=== PATIENT | female | born 1970 | race Caucasian/White ===

== ENCOUNTER 2017-10-25 14:14 | Outpatient (CLI) | payer MEDICAID, SELFPAY | END 2017-10-25 14:15 | disposition home or self-care (01) | LOC: BICMAMMO 14:14 | PROVIDERS: ATTEND Internal Medicine | DX: R92.8 Other abnormal and inconclusive findings on diagnostic imaging of breast (principal) | CPT/HCPCS: 77066; G0279 ==

== ENCOUNTER 2019-09-11 14:35 | Inpatient (IN) | payer SELFPAY ==
[~2019-09-11 14:35] MED LIST: Iopamidol-370 76% 500 ML 1 ML ONE; Magnevist 469MG/ML 20 ML VIAL ONE
[2019-09-11 16:28] LABS: #Basophils 0.1 thou/uL (0.0-0.2); #Eosinphils 0.1 thou/uL (0.0-0.7); #Lymphocytes 2.8 thou/uL (1.20-3.40); #Monocytes 0.6 thou/uL (0.11-0.59); #Neutrophils 7.8 thou/uL (1.40-6.50); %Lymphocytes 24.3 % (21.0-51.0); %Monocytes 5.4 % (0.0-10.0); %Neutrophils 68.4 % (42.0-75.0); Hemoglobin 14.9 g/dL (12.0-16.0); Mean Corpuscular HGB CONC 34.7 g/dL (32.0-36.0); Mean Platelet Volume 8.8 fL (7.4-10.4); Platelet Count 199 thou/uL (130-400); RBC Distribution Width 12.9 % (11.5-14.5); Red Blood Cell (RBC) Count 4.15 mill/uL (4.20-5.40); White Blood Cell (WBC) Count 11.4 thou/uL (4.8-10.8)
--- NOTE | 2019-09-11 16:28 | CT ---
Exam: Head CT without contrast HISTORY: 3 weeks of right leg weakness and balance and frequent falls. Right arm difficulty. COMPARISON: none FINDINGS: Hemorrhage: No intraparenchymal hemorrhage or extra-axial hematoma. Brain parenchyma: Extensive vasogenic edema involving the left frontal, parietal and temporal lobes. There appears to be intra-axial mass measuring 1.4 x 1.4 cm. 1 cm of ufot-gz-eojfs subfalcine herniation.Right cerebrum is unremarkable. Ventricular system: There is mild prominence of bilateral temporal horns. Calvarium: Intact. Sinuses and mastoid air cells: Adequate aeration. IMPRESSION: 1. Extensive vasogenic edema in the left cerebrum. Intra-axial mass as described above. Associated le ft-to-right subfalcine herniation. 2. Further evaluation with pre and postcontrast brain MRI is recommended. 3. Results study discussed with Dr. Durand 09/11/2019 4:24 PM Code CR
[2019-09-11 16:51] LABS: Bilirubin Negative (Negative); Blood, Urine Negative (Negative); Clarity Clear (Clear); Glucose, Urine (Dipstick) Normal (Negative); Leukocyte Negative Leu/uL (Negative); Nitrite Negative (Negative); Protein, Urine (Dipstick) Negative (Neg-Trace); Urobilinogen Normal mg/dL (Less than 2)
[2019-09-11] MEDS ORDERED: Lorazepam 2 MG/ML VIAL SLOW IVP PRN (17:25)
[2019-09-11] MEDS ORDERED: Nicotine 21 MG PATCH TOP SCH (17:30)
[2019-09-11 17:42] LABS: Chloride 107 mmol/L (98-107); Potassium 3.8 mmol/L (3.5-5.1); Sodium 140 mmol/L (136-145)
[2019-09-11 17:43] LABS: Calcium 9.2 mg/dL (7.8-10.44)
[2019-09-11 17:44] LABS: Globulin 3.2 g/dL (2.4-3.5); Glucose 84 mg/dL (70-105); Protein, Total 7.2 g/dL (6.0-8.3)
[2019-09-11 17:45] LABS: Anion Gap 16 mmol/L (10-20); Carbon Dioxide 21 mmol/L (22-29)
[2019-09-11 17:46] LABS: Alkaline Phosphatase 88 U/L (40-110); Bilirubin, Total 0.3 mg/dL (0.2-1.2)
[2019-09-11 17:47] LABS: Calc. Creatinine Clearance 0 mL/min (70-130); Estimated GFR-MDRD Greater than 90
[2019-09-11 17:48] LABS: BUN (Urea Nitrogen) Less than 4 mg/dL (7.0-18.7); Phosphorus 3.3 mg/dL (2.3-4.7)
[2019-09-11 17:49] LABS: ALT (SGPT) 22 U/L (8-55); AST (SGOT) 31 U/L (5-34)
[2019-09-11 17:53] LABS: Pregnancy Test - Urine (BHCG) Negative (Negative); Pregu Control Background? CLEAR/WHITE (CLR/WHITE); Pregu Control Bar Appear? YES (CONTROL BAR); Specific Gravity 1.003 (1.002-1.036)
--- NOTE | 2019-09-11 17:59 | RAD ---
Chest one view HISTORY: Chest pain. COMPARISON: 03/23/2014. FINDINGS: Cardiac silhouette is magnified by projection. Pulmonary vasculature are unremarkable. Large soft tissue density mass projecting over the lateral lung base is at least 8.0 cm greatest obli que diameter. Some volume loss at the right lower lobe. No evidence of pneumothorax. IMPRESSION: Large right lower lobe mass. Likely neoplasm.
[2019-09-11] MEDS ORDERED: Dexamethasone 4 mg/ml Vial ONE (18:02)
[2019-09-11] MEDS: Dexamethasone 4 mg/ml Vial SLOW IVP SCH (18:05)
[2019-09-11] MEDS ORDERED: Senokot S 8.6-50 MG TAB PO PRN (20:59)
[2019-09-11] MEDS ORDERED: Ondansetron ODT 4 MG TAB PO PRN (20:59)
[2019-09-11] MEDS ORDERED: Ondansetron PF 4 MG/2 ML Vial IVP PRN (20:59)
[2019-09-11] MEDS ORDERED: Bisacodyl 10 MG SUPP PR PRN (20:59)
--- NOTE | 2019-09-11 21:05 | CT ---
CHEST CT WITH CONTRAST ABDOMEN CT WITH CONTRAST PELVIC CT WITH CONTRAST 09/11/19 HISTORY: New intra-axial mass in the left cerebrum, worrisome for metastases. Unknown primary. FINDINGS: CHEST CT: No mediastinal mass, lymphadenopathy or hematoma. Heart size is within normal limits. No significant pericardial fluid. The thoracic aorta and abdominal aorta have a normal caliber. No periaortic fat st randing. Questionable necrotic right axillary lymph node measuring 0.6 x 0.5 cm. Remainder of the right axilla and left axilla are unremarkable. Lower neck is unremarkable. Trachea and central bronchi are patent. No pleural effusion or pneumothorax. In the right lung, there is a large necrotic mass, located in the lower lobe. The mass abuts the tahira r fissure. Mass measures 5 cm craniocaudal x 5.4 cm mediolateral x 5.1 cm anterior posterior. No nale tional lung parenchymal mases or nodules. ABDOMEN CT: Unremarkable gallbladder. Patent portal vein. Multiple calcifications of the pancreas suggesting elvis te bouts of pancreatitis. There is diffuse cystic change and dilatation of the pancreatic duct, in ke eping with patient's suspected history of chronic pancreatitis. No active inflammatory change. The liver, spleen, pancreas have appropriate attenuation and enhancement. Symmetric enhancement of the adrenal glands. Symmetric enhancement of the kidneys. Bilaterally, no obstructive uropathy. No gastrohepatic, retrocrural or periportal lymphadenopathy. No mesenteric mass, lymphadenopathy, free air or free fluid. Gastric mucosal, duodenum and multiple normal caliber small bowel loops are identified. Ileocecal libra ction is unremarkable. Normal caliber appendix. There is contrast in a nondistended, nondilated colon . CT PELVIS: Unremarkable urinary bladder. No pelvic mass, lymphadenopathy free air or free fluid. Urinary bladder is unremarkable. No lytic or blastic lesions within the osseous structures. IMPRESSION: Necrotic mass in the right lower lobe, worrisome for malignancy until proven otherwise. POS: PPP
[2019-09-11] MEDS ORDERED: cloNIDine 0.1 MG TAB PO PRN (21:09)
--- NOTE | 2019-09-11 21:35 | HP ---
PRIMARY CARE PHYSICIAN: None. CHIEF COMPLAINT: Right-sided weakness of 2 months duration. HISTORY OF PRESENT ILLNESS: The patient is a 48-year-old female with chronic alcoholism and tobacco dependence, presented to the emergency room with above complaints. Over the last 2 months, the patient has gradual worsening right-sided weakness to the extent that she had difficulty ambulating. Over the last 2-3 weeks, her symptoms got worsen. She has difficulty balancing herself. She also had frequent falls. Recently, she started having lightheadedness along with generalized headache. She denies any blurring of vision, facial asymmetry, or seizures. She tried Excedrin Migraine and ibuprofen on an as-needed basis without much relief. Her symptoms got worse today for which she presented to the emergency room. In the emergency room, her workup was consistent with extensive vasogenic edema in the left cerebrum along with an intra-axial mass. PAST MEDICAL HISTORY: 1. Chronic alcoholism. 2. Tobacco dependence.. 3. Cannabis abuse. 4. History of alcoholic pancreatitis in the past. 5. Anxiety. PAST SURGICAL HISTORY: Reviewed with the patient and none. ALLERGIES: NO KNOWN DRUG ALLERGIES. CURRENT HOME MEDICATIONS: Reviewed with the patient and none. SOCIAL HISTORY: The patient smokes one pack a day. She drinks 12-pack beer almost on a daily basis. She used to drink vodka in the past. She abuses cannabis on a daily basis. FAMILY HISTORY: Positive for stroke. REVIEW OF SYSTEMS: All other review of systems were reviewed and were found negative. PHYSICAL EXAMINATION: VITAL SIGNS: Temperature 99.3, pulse rate of 104, blood pressure 131/77, respirations of 18, O2 saturation 99% on room air. GENERAL: A 48-year-old female, in no apparent distress. HEENT: Head, atraumatic and normocephalic. Sclerae anicteric. Moist mucous membranes. No oral lesion. Pupils were 3 mm. NECK: Supple. No JVD. No carotid bruit. LUNGS: Clear to auscultation bilaterally. No wheezing, rales, or rhonchi. HEART: S1 and S2 present. Regular rate and rhythm. No rubs or gallops. ABDOMEN: Soft, nontender. Bowel sounds present. EXTREMITIES: No edema or calf tenderness. PSYCHIATRY: Alert, awake, and oriented x3. Normal affect. NEUROLOGICAL: The patient has 4/5 power on the right upper and right lower extremity. Pqrrcz-nr-gqgb test was abnormal on the right. Sensation to touch was also diminished on the right. Reflexes were equivocal. SKIN: Warm and dry. LYMPH NODES: No palpable lymph nodes in the neck. PERIPHERAL VASCULAR: Radial pulses palpable bilaterally. MUSCULOSKELETAL: No joint swelling tenderness. LABORATORY FINDINGS: CBC showed WBC 11.4 with hemoglobin 14.9, hematocrit 43, platelet count of 199. Chemistry showed sodium 140, potassium 3.8, chloride 107, bicarb 21, BUN less than 4, creatinine 0.54. LFTs in normal range. Troponin was negative. CT scan of the brain by my review showed extensive vasogenic edema of the left cerebrum with intra-axial mass approximately 1.4 x 1.4 cm with 1 cm soyo-ij-emyht subfalcine herniation. CT of the chest, abdomen, and pelvis has been obtained, report is pending at this time. EKG by my review showed sinus rhythm with nonspecific ST-T wave changes in the anterolateral lead. IMPRESSION: 1. Right-sided weakness secondary to intracranial mass with vasogenic edema. 2. Chronic alcoholism. 3. Tobacco dependence. 4. Cannabis abuse. 5. Anxiety. PLAN: The patient will be monitored in the stroke unit. She has been started on dexamethasone per Neurosurgery recommendations. MRI of the brain will be obtained in the a.m. She also underwent CT chest, abdomen, and pelvis, report is pending at this time. We will put her on seizure precautions. We will start her on alcohol withdrawal protocol. Frequent neuro checks. Plan of care was discussed with the patient and the family at the bedside. They stated understanding. Job ID: [id number]
--- NOTE | 2019-09-12 00:19 | CON ---
DATE OF CONSULTATION: 09/11/2019 HISTORY OF PRESENT ILLNESS: The patient is a 48-year-old female with a past medical history of alcohol abuse, who presented to the emergency department for increased right-sided weakness, dysesthesia and difficulty ambulating, which has been progressive over the last month. The patient also reports an increase of headaches, which are new for her over the past month as well. She denies any prior similar symptoms. Denies any vision changes, difficulty speaking, but does admit to some trouble finding her words at times. She has no prior cancer history and she denies any family history of cancer. The patient is a smoker and smokes approximately one pack of cigarettes per day. She also smokes marijuana. She drinks approximately 12 beers per day. She denies any prior history of seizures. CT noncontrast of the head was notable for a new left-sided parietal brain mass with significant surrounding the frontotemporal and parietal edema. The patient has been treated with Decadron in the ER and I recommended that we continue this q.6h. Hospitalist was also notified and will admit for assistance with further oncologic workup. PAST MEDICAL HISTORY: Notable for pancreatitis, EtOH abuse. PAST SURGICAL HISTORY: Denies any prior surgical history. SOCIAL HISTORY: She drinks approximately 12 beers per day. She smokes one pack of cigarettes per day for greater than 20 years. She also smokes marijuana daily. REVIEW OF SYSTEMS: Per HPI. ALLERGIES: SHE HAS NO KNOWN DRUG ALLERGIES. PHYSICAL EXAMINATION: VITAL SIGNS: BP is 141/74, pulse is 92, respiratory rate is 20, temperature is 98.2. She is 97% on room air. CONSTITUTIONAL: The patient is awake, alert, in no acute distress. She is slightly anxious. HEENT: Head, normocephalic and atraumatic. Eyes, PERRLA. Extraocular movements intact. ENT; oral mucosa is pink, intact, and moist. She has normal voice. NECK: Nontender to palpation. Free active range of motion. No meningismus or nuchal rigidity. RESPIRATORY: Symmetric chest expansion. No evidence of dyspnea. CARDIOVASCULAR: Regular rate and rhythm. MUSCULOSKELETAL: No obvious deformities. She has notable weakness in the right lower extremity and has difficulty lifting the leg off the bed. In the right upper extremity, there is supple weakness throughout. The left upper and lower extremity have 5/5 strength. NEUROLOGIC: GCS 15. She is A and O x4. She has normal speech. She has some difficulty with tnpaue-ix-itqz on the right. She has notable weakness on the right side. See her musculoskeletal exam. ASSESSMENT AND PLAN: This is a 48-year-old female with a newly found left-sided brain mass with progressive right-sided weakness and difficulty ambulating. Brain mass is notable for significant vasogenic edema and she has been started on Decadron in the ER. We are recommending that she continue this medication Decadron 4 q.6h with famotidine 20 b.i.d. for gastrointestinal protection. She will need further evaluation of this new mass with MRI of the brain with and without contrast for further characterization. We are also recommending CT of the chest, abdomen, and pelvis with contrast to rule out any metastasis. The patient has significant daily alcohol use and she will likely require assistance to prevent any development of DTs. I have discussed our plan with the hospitalist and also with Dr. Arroyo. We will follow these results closely. Job ID: [id number]
[2019-09-12] MEDS: Sodium Chloride 0.9% 1,000 ML IV SCH ×2 (00:22→17:20)
[2019-09-12] MEDS: Dexamethasone 4 mg/ml Vial SLOW IVP SCH ×4 (00:29→17:21)
[2019-09-12] MEDS: cloNIDine 0.1 MG TAB PO SCH ×2 (09:32→16:35)
[2019-09-12] MEDS: pyridOXINE 50 MG (B6) TAB PO SCH (09:34)
[2019-09-12] MEDS: Multivit, Therapeutic 1 TAB PO SCH (09:34)
[2019-09-12] MEDS: Thiamine 100 MG TAB PO SCH (09:34)
[2019-09-12] MEDS: Cyanocobalamin (Vitamin B-12) 1,000 MCG TAB PO SCH (09:34)
[2019-09-12] MEDS: Folic Acid 1 MG TAB PO SCH (09:34)
[2019-09-12] MEDS: Famotidine/PF 20 mg/2ml Vial SLOW IVP SCH (09:35)
--- NOTE | 2019-09-12 09:47 | MRI ---
BRAIN MRI WITH AND WITHOUT CONTRAST: HISTORY: New left parietal brain mass. Right leg weakness. Decreased balance. Increased falls. COMPARISON: None. FINDINGS: Gradient echo sequence: No hemorrhage. Calvarium: Appropriate T1 marrow signal intensity. Midline brain parenchyma: Unremarkable. Cerebrum:Redemonstration of extensive vasogenic edema involving the left frontal, parietal and tempor al lobes. Associated sulcal effacement. There is mass effect upon the left lateral ventricle. There is 0.7 cm of dbth-wa-mryqa subfalcine herniation. Ventricles: Small component of obstructive hydrocephalus may be present given mild dilatation of both temporal horns. Sinuses and mastoid air cells: Partial opacification of bilateral mastoid air cells. Right maxillary sinus disease. Diffusion: Central arterial flow is maintained. Absent restricted diffusion. Postcontrast images:There are 2 separate enhancing foci, intraaxial location involving the left cereb rum. There is an enhancing focus centered in the left occipital parietal region measuring 1.9 x 1.9 cm. There is an enhancing focus in the medial left occipital cortex measuring 1.3 x 1.5 cm. There is a small focus of enhancement along the superior aspect of left cerebellar hemisphere measuring 0.4 cm. IMPRESSION: 1. Multifocal intracranial/intraaxial masses compatible with metastases. Patient appears to have a po ssible primary tumor in the right lung. 2. Mass effect and sulcal effacement secondary to intraparenchymal metastases, involving the left cer ebrum. There is rkvf-fr-rugfb subfalcine herniation. Transcribed Date/Time: 09/12/2019 9:56 AM
[2019-09-12] MEDS: Pancrelipase DR 12000 1 CAP PO SCH ×2 (11:18→17:20)
[2019-09-12] MEDS: Acetaminophen 325 MG TAB PO PRN (11:21)
--- NOTE | 2019-09-12 15:47 | CON ---
DATE OF CONSULTATION: I reviewed Ms. Valera's new MRI scan. This reveals two left-sided parieto-occipital small lesions consistent with metastases. There may also be a lesion in the cerebellum, which is less well visualized. CT of the chest has revealed a large lung lesion. IMPRESSION AND PLAN: Primary lung cancer with intracranial metastases. The intracranial lesions are not usually accessible for either biopsy or resection. I would recommend focusing on the primary lung lesion for tissue diagnosis as well as treatment. Once the tissue diagnosis is confirmed, we would recommend consult Radiation Oncology for radiation for the brain. No surgical intervention is required. Job ID: [id number]
--- NOTE | 2019-09-12 16:01 | CON ---
DATE OF CONSULTATION: 09/12/2019 SERVICE: Pulmonary Medicine. REASON FOR CONSULTATION: Pulmonary mass. HISTORY OF PRESENT ILLNESS: The patient is a 48-year-old white female with past medical history significant for an extensive smoking history and alcohol abuse. She was in her usual state of health when she had onset of neurologic dysfunction. She was brought to the emergency department, where CT of the head demonstrated a lesion in the brain. She subsequently went for an MRI. She also went for a CT of the chest, abdomen, and pelvis. This was cleared except for a large mass in the lung. She is not having fevers or chills. She has had significant weight reduction and has not coughed up any sputum. She has not had any hemoptysis. Otherwise, there has been no interval change to her condition. PAST MEDICAL HISTORY: 1. Chronic alcohol abuse. 2. Tobacco abuse. 3. Cannabinoid abuse. 4. History of alcoholic pancreatitis. 5. Anxiety disorder. 6. Lung and brain masses. PAST SURGICAL HISTORY: None. ALLERGIES: NO KNOWN DRUG ALLERGIES. MEDICATIONS: List of the inpatient medications were reviewed. No specific updates were made at this time. SOCIAL HISTORY: She smokes a pack of cigarettes on a daily basis and has greater than 27-yuru-whll history of smoking. She drinks a 12 pack of beer almost every single day. When she does not drink alcohol, she does go into withdrawal. She did away with the vodka and other liquors. She uses cannabinoids on a daily basis. Otherwise, she denies any illicit drugs. She has no exposure to chemicals, dust , asbestos, or tuberculosis. FAMILY HISTORY: Noncontributory. REVIEW OF SYSTEMS: General, head, ears, eyes, nose, throat, cardiovascular, respiratory, GI, , musculoskeletal, neurologic, and skin is negative except as mentioned in the HPI. PHYSICAL EXAMINATION: VITAL SIGNS: Afebrile, currently; pulse 82; blood pressure 131/80; respirations 13; and saturation 95%, currently on room air. GENERAL: The patient is awake and alert, in no apparent distress. LUNGS: Decent air entry. There is a slightly prolonged expiratory phase, but no wheezing or crackles are appreciated. HEART: Normal rate, regular. ABDOMEN: Soft, nontender, and nondistended. Bowel sounds are positive. MUSCULOSKELETAL: No cyanosis or clubbing. There is no pitting in bilateral lower extremities. NEUROLOGIC: Grossly nonfocal currently. LABORATORY DATA: WBC 11.4, hemoglobin 14.9, and platelets 199,000. Basic metabolic profile and liver function studies are completely unremarkable. Troponin is negative, magnesium and phosphorous fall within normal limits. Urinalysis is negative. C difficile antigen and toxin are negative. IMAGING DATA: 1. MRI of the brain demonstrates a brain mass with vasogenic edema. Multiple masses are present. There is ynge-pl-szstc subfalcine herniation present. 2. CT of the chest, abdomen, and pelvis demonstrates a large mass within endobronchial airway traveling directly into the middle of it. ASSESSMENT: 1. Pulmonary mass. 2. Multiple brain metastases. 3. Alcohol abuse. DISCUSSION AND PLAN: I will touch base with Neurosurgery. If they are not planning on any surgical intervention, we will set up a bronchoscopy and move forward with a sampling procedure. I do not see any other reliable extra pulmonary disease that will give us a clear-cut explanation for this process. Pulmonary/Critical Care will continue to follow. 70 minutes have been devoted to this patient in various activities. I personally reviewed all imaging studies and laboratory data noted within this document. For fifty percent of this time, I was interacting with the patient at the bedside or coordinating care with the care team. For the remainder of the time I was immediately available to the patient in the hospital unit. Job ID: [id number] MTDD
[2019-09-12] MEDS: BEER 1 CAN PO SCH (17:20)
[2019-09-12] MEDS: Nicotine 21 MG PATCH TD SCH (17:20)
--- NOTE | 2019-09-12 20:55 | PDOC.HOSPP ---
- Subjective Encounter Date: 09/12/19 Encounter Time: 13:30 Subjective: Patient seen and examined for brain mass. No new focal deficits. Rt sided weakness improving. No seizures. No new complaints. No overnight events - Objective Vital Signs & Weight: Vital Signs (12 hours) Temp Pulse Pulse Resp BP BP BP 09/12/19 20:00 98.5 F 96 16 09/12/19 16:35 133/86 09/12/19 16:00 122/82 09/12/19 15:34 98.3 F 77 14 09/12/19 14:18 83 116/80 129/81 09/12/19 12:00 131/80 09/12/19 11:46 99.5 F 82 13 09/12/19 11:27 98.4 F 78 16 09/12/19 10:13 109/75 118/79 09/12/19 09:59 09/12/19 09:43 98.3 F 96 16 09/12/19 09:32 138/80 BP Pulse Ox 09/12/19 20:00 119/66 98 09/12/19 16:35 09/12/19 16:00 09/12/19 15:34 122/82 96 09/12/19 14:18 09/12/19 12:00 09/12/19 11:46 131/80 95 09/12/19 11:27 118/79 100 09/12/19 10:13 09/12/19 09:59 100 09/12/19 09:43 100 09/12/19 09:32 Weight Admit Weight 96 lb Weight 96 lb 1.6 oz I&O: 09/11/19 09/12/19 09/13/19 06:59 06:59 06:59 Intake Total 932 Balance 932 Result Diagrams: 09/11/19 16:17 09/11/19 17:26 Radiology Reviewed by me: Yes (CT chest - Lung mass) EKG Reviewed by me: Yes (Tele SR) Hospitalist ROS - Review of Systems Respiratory: denies: cough, dry, shortness of breath, hemoptysis, SOB with excertion, pleuritic pain, sputum, wheezing, other Cardiovascular: denies: chest pain, palpitations, orthopnea, paroxysmal noc. dyspnea, edema, light headedness, other - Medication Medications: Active Medications Generic Name Dose Route Start Last Admin Trade Name Freq PRN Reason Stop Dose Admin Acetaminophen 650 mg 09/11/19 20:59 09/12/19 11:21 Tylenol PO 650 mg Q4H PRN Administration Headache/Fever/Mild Pain (1-3) Lipase/Protease/Amylase 1 cap 09/12/19 12:00 09/12/19 17:[address] [place] [id number] PO 1 cap TID-WM JAMARCUS Administration Beer 2 each 09/12/19 17:00 09/12/19 17:20 Beer PO 2 each TID-WM JAMARCUS Administration Chlordiazepoxide HCl 10 mg 09/12/19 09:00 09/12/19 16:36 Librium PO 10 mg TID JAMARCUS Administration Cyanocobalamin 1,000 mcg 09/12/19 09:00 09/12/19 09:34 Vitamin B-12 PO 1,000 mcg DAILY JAMARCUS Administration Dexamethasone 4 mg 09/11/19 18:00 09/12/19 17:21 Decadron SLOW IVP 4 mg Q6HR JAMARCUS Administration Famotidine 20 mg 09/12/19 09:00 09/12/19 09:35 Pepcid SLOW IVP Not Given DAILY JAMARCUS Folic Acid 1 mg 09/12/19 09:00 09/12/19 09:34 Folvite PO 1 mg DAILY JAMARCUS Administration Sodium Chloride 1,000 mls @ 50 mls/hr 09/11/19 21:15 09/12/19 17:20 Normal Saline 0.9% IV 1,000 mls .Q20H JAMARCUS Administration Multivitamins 1 tab 09/12/19 09:00 09/12/19 09:34 Theragran PO 1 tab DAILY JAMARCUS Administration Nicotine 21 mg 09/12/19 18:00 09/12/19 17:20 Nicoderm Patch TD 21 mg 1800 JAMARCUS Administration Pyridoxine HCl 50 mg 09/12/19 09:00 09/12/19 09:34 Vitamin B 6 PO 50 mg DAILY JAMARCUS Administration Thiamine HCl 100 mg 09/12/19 09:00 09/12/19 09:34 Thiamine PO 100 mg DAILY JAMARCUS Administration - Exam General Appearance: NAD Heart: no murmur, no gallops, no rubs, normal peripheral pulses Respiratory: no wheezes, no rales, no ronchi, normal chest expansion Gastrointestinal: non-tender, non-distended, normal bowel sounds, no guarding Neurological: no new deficit Neurological - other findings: slightly improving Rt sided weakness Psychiatric: normal affect, A&O x 3 Hosp A/P - Plan DVT proph w/SCDs Right-sided weakness secondary to brain mets with vasogenic edema. Lung mass Chronic alcoholism. Tobacco dependence. Cannabis abuse. Anxiety. PLAN: Pulm/NSG input appreciated Cont Dexamethasone Bronchoscopy in AM Monitor for alcohol withdrawals AM labs Consult Dr Casey (Radiation oncology) Cont other meds as above
--- NOTE | 2019-09-12 21:11 | CON ---
DATE OF CONSULTATION: 09/12/2019 REASON FOR CONSULTATION: Ms. Valera is a 48-year-old female who appears to have a clinical diagnosis of a stage IV, T3N0M1 lung carcinoma with brain metastasis. HISTORY OF PRESENT ILLNESS: Ms. Valera states that she had a tooth pulled and was losing weight and having difficulty with eating. In July, she thought she had a pinched nerve, because she was having some right-sided weakness. This seemed to be worsening and she began having migraine headaches. When the right-sided weakness and headaches persisted, she thought she might have had a stroke, so she subsequently came to the emergency room. A CT scan of the head showed a contrast-enhancing lesion in the left parietal area of the brain with significant vasogenic edema. She was therefore admitted for workup and evaluation. She was placed on steroids and subsequently saw Neurosurgery. MRI of the brain was recommended as well as CT of the chest, abdomen, and pelvis. MRI of the brain showed 3 contrast-enhancing lesions that were suspicious. One was in the left occipito-parietal area of the brain, measured 1.9 cm. The other was in the left occipital area and measured 1.3 cm x 1.5 cm. There was a 0.4 cm lesion in the left cerebellar hemisphere. A CT of the chest showed a 5.4 cm mass in the right lower lobe of the lung. There was no mediastinal adenopathy. There was small axillary lymph node on the right side seen of unknown significance. There was no evidence of liver metastasis. There were calcifications in the pancreas consistent with chronic pancreatitis. Since being placed on the steroids, her headaches are improved. She still has some right-sided weakness, although this is better. She is using physical therapy and still needs assistance in getting to the restroom. She denies any shortness of breath or orthopnea. She has a chronic cough, which is occasionally productive of phlegm. She has no hemoptysis. She has chronic back pain, which is unchanged. She denies any chest pain. Her weight loss, she is unable to quantify. She voices no other complaints. PAST MEDICAL HISTORY: 1. Chronic alcoholism. 2. Tobacco abuse. 3. Cannabis abuse. 4. History of alcoholic pancreatitis. 5. Anxiety. 6. She denies other medical or surgical problems. MEDICATIONS: 1. Dexamethasone. 2. Pepcid. 3. Ativan p.r.n. 4. Librium. 5. Multivitamins. ALLERGIES: NO KNOWN MEDICAL ALLERGIES. SOCIAL HISTORY: She smokes one pack per day. She drinks typically a 12 pack of beer per day. She also uses cannabis on a daily basis. She lives here in town and is unemployed. She also does not have medical insurance. FAMILY HISTORY: Her mother is still living at age 65 with a history of heart disease and bypass surgery. Her father from a stroke. There is no family history of lung cancer or other malignancies. REVIEW OF SYSTEMS: Twelve system review of systems was otherwise negative. PHYSICAL EXAMINATION: VITAL SIGNS: Height 5 feet, weight 96 pounds, blood pressure is 133/86, pulse is 77, respirations are 14, temperature is 98.3, O2 saturation is 96% on room air. CONSTITUTIONAL: She is alert and oriented and in no apparent distress. She is thin in appearance. Karnofsky performance status is 80%. EYES: Pupils equal, round, and reactive to light. Extraocular movements are intact. ENT: Oral cavity and oropharynx normal without lesion or erythema. Palate elevates symmetrically. Gingiva is intact. Tongue is blackened from her tobacco abuse. NECK: Supple without preauricular, submandibular, cervical, supraclavicular adenopathy. No thyromegaly. Larynx midline. LUNGS: Breathing nonlabored. Clear to auscultation and percussion. CARDIOVASCULAR: Heart, regular rate and rhythm without murmur. No lower extremity edema. BACK: No tenderness on fist percussion of her spine. LYMPHATIC: No axillary or inguinal adenopathy. ABDOMEN: Soft, nontender, nondistended without mass or hepatosplenomegaly. Liver percusses to normal size. SKIN: Without rash or purpura. NEUROLOGIC: Cranial nerves 2-12 grossly intact. Motor strength is 5/5 in the left upper extremity and left lower extremity in all muscle groups tested. In the right upper and right lower extremity strength is 4/5. Reflexes are normal and symmetrical. Gait was not tested. LABORATORY DATA: [place] [address] with a hemoglobin of 14.9, hematocrit of 43.0, and platelet count of 199,000. Chemistry group showed normal electrolytes with a normal creatinine. RADIOLOGIC DATA: MRI of the brain, CT scan of the brain, and CT of the chest, abdomen, and pelvis were all personally reviewed. MRI of the brain shows 3 contrast-enhancing lesions. One is in the left parieto-occipital area of the brain, one is in the left occipital area of the brain, and one is in the left cerebellum. There is significant vasogenic edema. CT of the chest shows a 5.4 cm mass in the right lower lobe of the lung with no mediastinal adenopathy. She has a small axillary lymph node of unknown significance. She has no evidence of liver metastasis. ASSESSMENT: Ms. Valera is a 48-year-old female with likely a clinical stage IV, T3N0M1 lung carcinoma. She has multiple brain metastasis. PLAN: At this point, I can make no recommendations regarding therapy. She has seen neurosurgery who did not feel that neurosurgery intervention was required. We do need to get tissue diagnosis before any recommendations can be made regarding radiation therapy. She has seen pulmonology and plan is for a bronchoscopy tomorrow. Again, I did explain the situation to Ms. Valera and her significant other regarding that she likely had stage IV lung cancer. The treatment for her brain metastasis will likely be radiation therapy. We have many options, which could include whole-brain radiation or even possibly radio surgery, but this will all depend on the tissue diagnosis and tissue type. Once that is obtained, we can make additional recommendations. I do agree with initiation of cem. Thank you for this interesting consultation. Job ID: [id number] RAINER
[2019-09-13] MEDS: Dexamethasone 4 mg/ml Vial SLOW IVP SCH ×5 (01:26→22:58)
[2019-09-13 05:04] LABS: #Lymphocytes 0.7 thou/uL (1.20-3.40); #Monocytes 0.3 thou/uL (0.11-0.59); #Neutrophils 8.5 thou/uL (1.40-6.50); %Basophils 0.1 % (0.0-1.0); %Lymphocytes 7.5 % (21.0-51.0); %Monocytes 3.1 % (0.0-10.0); %Neutrophils 89.2 % (42.0-75.0); Hemoglobin 12.9 g/dL (12.0-16.0); Mean Corpuscular HGB CONC 32.2 g/dL (32.0-36.0); Mean Corpuscular Hemoglobin 34.1 pg (27.0-31.0); Mean Platelet Volume 7.4 fL (7.4-10.4); Platelet Count 283 thou/uL (130-400); Red Blood Cell (RBC) Count 3.79 mill/uL (4.20-5.40); White Blood Cell (WBC) Count 9.5 thou/uL (4.8-10.8)
[2019-09-13 05:30] LABS: Anion Gap 13 mmol/L (10-20); BUN (Urea Nitrogen) 14 mg/dL (7.0-18.7); Calc. Creatinine Clearance 71 mL/min (70-130); Calcium 8.9 mg/dL (7.8-10.44); Carbon Dioxide 22 mmol/L (22-29); Chloride 108 mmol/L (98-107); Estimated GFR-MDRD Greater than 90; Glucose 173 mg/dL (70-105); Potassium 3.9 mmol/L (3.5-5.1); Sodium 139 mmol/L (136-145)
--- NOTE | 2019-09-13 09:24 | PRG ---
DATE OF SERVICE: 09/13/2019 The patient was seen and examined. I agree with Anai Abreu's evaluation on 09/11/2019. The patient is a 48-year-old woman, who presented with right hemiparesis and was found have multiple intracranial lesions. She has a history of significant alcohol use. MRI scan has revealed two left parieto-occipital lesions, which are small with significant surrounding edema consistent with metastases. There may be a tiny additional metastasis in the cerebellum. The patient has a large new lung mass. IMPRESSION AND PLAN: Likely lung cancer with metastatic intracranial disease. The intracranial lesions are not easily accessible for either biopsy or resection and I recommend pursuing primary diagnosis to the lung lesion. Once primary diagnosis confirmed, I am hopeful that the intracranial lesion can be treated with radiation and I see that Dr. Casey has consulted already. I discussed with the patient and her family. Job ID: [id number]
[2019-09-13] MEDS: BEER 1 CAN PO SCH ×3 (09:50→17:44)
[2019-09-13] MEDS: Folic Acid 1 MG TAB PO SCH (09:50)
[2019-09-13] MEDS: Pancrelipase DR 12000 1 CAP PO SCH ×3 (09:50→17:44)
[2019-09-13] MEDS: Cyanocobalamin (Vitamin B-12) 1,000 MCG TAB PO SCH (09:50)
[2019-09-13] MEDS: Famotidine/PF 20 mg/2ml Vial SLOW IVP SCH (09:50)
[2019-09-13] MEDS: Multivit, Therapeutic 1 TAB PO SCH (09:51)
[2019-09-13] MEDS: pyridOXINE 50 MG (B6) TAB PO SCH (09:51)
[2019-09-13] MEDS: Thiamine 100 MG TAB PO SCH (09:51)
[2019-09-13] MEDS ORDERED: Lidocaine 2% Jelly 5 ML TUBE ONE (12:28)
[2019-09-13] MEDS ORDERED: Fentanyl 100 MCG/2 ML VIAL ONE (12:57)
[2019-09-13] MEDS ORDERED: Midazolam HCl 2 mg/2 ml Vial ONE (12:57)
[2019-09-13] MEDS: Sodium Chloride 0.9% 1,000 ML IV SCH (13:21)
[2019-09-13] MEDS ORDERED: Ondansetron HCl/PF 4 MG/2 ML Vial IVP PRN (14:19)
[2019-09-13] MEDS ORDERED: BEER 1 CAN PO SCH ×2 (15:00→23:00)
[2019-09-13] MEDS ORDERED: Ondansetron PF 4 MG/2 ML Vial ONE (15:58)
[2019-09-13] MEDS ORDERED: PROPOFOL 200 MG/20 ML VIAL ONE (15:58)
[2019-09-13] MEDS ORDERED: Rocuronium Bromide 10 MG/ML (10ML VIAL) ONE (15:58)
[2019-09-13] MEDS ORDERED: Glycopyrrolate 0.2 MG/ML 5 ML SYRINGE ONE (15:58)
[2019-09-13] MEDS ORDERED: Dexamethasone 20 MG/5 ML VIAL ONE (15:58)
[2019-09-13] MEDS ORDERED: diphenhydrAMINE 50 MG/ML VIAL ONE (15:58)
--- NOTE | 2019-09-13 16:08 | PRG ---
DATE OF SERVICE: 09/13/2019 SERVICE: Pulmonary Medicine. INTERVAL HISTORY: The patient is doing fine from respiratory standpoint. Neurosurgery was not planning on taking her for an intervention. As such, we scheduled her for bronchoscopy. She denies any current fevers or chills. Otherwise, there were no events overnight. PHYSICAL EXAMINATION: VITAL SIGNS: Afebrile, pulse 88, blood pressure 129/85, respirations 17, saturation 96% on room air. GENERAL: The patient is awake and alert, in no apparent distress. LUNGS: Decent air entry. No prolonged expiratory phase or wheezing is appreciated. HEART: Normal rate. Regular. ABDOMEN: Soft, nontender, and nondistended. Bowel sounds are positive. MUSCULOSKELETAL: No cyanosis or clubbing. No pitting in the bilateral lower extremities. NEUROLOGIC: Grossly nonfocal. LABORATORY DATA: WBC 9.5, hemoglobin 12.9, and platelets 283,000. Basic metabolic profile is otherwise unremarkable. Urinalysis is negative. Respiratory culture and C difficile antigen and toxin are unremarkable. ASSESSMENT: 1. Pulmonary mass. 2. Multiple brain metastases. 3. Alcohol abuse. DISCUSSION AND PLAN: We will take the patient down for a bronchoscopy. If we see something to biopsy, endobronchial lesion will be sampled. If not, we will need to use fluoroscopy to see if we can identify the appropriate segment to get our sample from. Pulmonary will continue to follow along. Job ID: [id number]
--- NOTE | 2019-09-13 16:50 | OP ---
DATE OF PROCEDURE: 09/13/2019 SERVICE: Pulmonary Medicine. PROCEDURES PERFORMED: Fiberoptic bronchoscopy with; 1. Visual airway inspection. 2. Endobronchial brush of the right lower lobe. 3. Bronchoalveolar lavage of the right lower lobe. 4. Endobronchial biopsies of the right lower lobe. PREPROCEDURE DIAGNOSIS: Pulmonary mass. POSTPROCEDURE DIAGNOSIS: Pulmonary mass. PREANESTHESIA ASSESSMENT: H and P had been performed. The patient's medications and allergies were reviewed. Informed consent was obtained after discussing the risks, benefits, and rationale for performing the procedure as well as alternative options. DESCRIPTION OF PROCEDURE: A time-out was performed, identifying the correct procedure and patient with name and date of . A diagnostic fiberoptic bronchoscope was introduced through the endotracheal tube. The bronchoscope was advanced into the trachea, where tracheobronchial tree inspection was carried out with clear identification of the right upper lobe, right middle lobe, right lower lobe, left upper lobe, lingula, and left lower lobe. Anatomy was nearly normal to the segmental level. There was a fungating white mass in the common anterobasal and lateral basal segments of the right lower lobe. Otherwise, there was no significant endobronchial disease. A BAL was performed in the common anterobasal/lateral basal segment of the right lower lobe. Endobronchial brushing and endobronchial biopsies were obtained under direct visualization. The anterobasal segment was opened and allowed large forceps to pass through. I could not get the bronchoscope into that region. The lateral basal segment was completely obliterated. No device could be passed distal to that lesion. Hemostasis was verified and the bronchoscope was subsequently removed from the patient. FINDINGS: 1. There is endobronchial disease in a common anterobasal/lateral basal bronchus of the right lower lobe. All additional segments including the posterobasal segment and medial basal segment are easily identified. 2. Secretions were minimal. SPECIMENS OBTAINED: 1. BAL on microbiology. 2. BAL, endobronchial biopsies, and endobronchial brushing on endobronchial mass. COMPLICATIONS: None. ESTIMATED BLOOD LOSS: 5 mL. FLUOROSCOPY TIME: None. DISPOSITION: The patient will be transitioned out of the postanesthesia care unit back to the floor when she meets criteria. Job ID: [id number]
[2019-09-13] MEDS: Nicotine 21 MG PATCH TD SCH (17:44)
--- NOTE | 2019-09-13 22:27 | PDOC.HOSPP ---
- Subjective Encounter Date: 09/13/19 Encounter Time: 15:00 Subjective: Patient seen and examined for suspected Lung Ca with mets. No seizures or new focal deficits. No new complaints. No overnight events - Objective Vital Signs & Weight: Vital Signs (12 hours) Temp Pulse Resp BP BP BP Pulse Ox 09/13/19 20:00 98.4 F 85 16 117/74 98 09/13/19 15:19 129/85 09/13/19 15:00 98.3 F 88 17 129/85 96 Weight Admit Weight 96 lb Weight 96 lb 1.6 oz I&O: 09/12/19 09/13/19 09/14/19 06:59 06:59 06:59 Intake Total 1172 240 Balance 1172 240 Result Diagrams: 09/13/19 04:53 09/13/19 04:52 EKG Reviewed by me: Yes (Tele SR) Hospitalist ROS - Review of Systems Respiratory: denies: cough, dry, shortness of breath, hemoptysis, SOB with excertion, pleuritic pain, sputum, wheezing, other Cardiovascular: denies: chest pain, palpitations, orthopnea, paroxysmal noc. dyspnea, edema, light headedness, other - Medication Medications: Active Medications Generic Name Dose Route Start Last Admin Trade Name Freq PRN Reason Stop Dose Admin Acetaminophen 650 mg 09/11/19 20:59 09/12/19 11:21 Tylenol PO 650 mg Q4H PRN Administration Headache/Fever/Mild Pain (1-3) Albuterol/Ipratropium 3 ml 09/12/19 16:15 09/13/19 11:29 Duoneb NEB 3 ml WILLCALL JAMARCUS Administration Lipase/Protease/Amylase 1 cap 09/12/19 12:00 09/13/19 17:[address] [place] [id number] PO 1 cap TID-WM JAMARCUS Administration Beer 2 each 09/12/19 17:00 09/13/19 17:44 Beer PO 2 each TID-WM JAMARCUS Administration Chlordiazepoxide HCl 10 mg 09/12/19 09:00 09/13/19 20:48 Librium PO 10 mg TID JAMARCUS Administration Cyanocobalamin 1,000 mcg 09/12/19 09:00 09/13/19 09:50 Vitamin B-12 PO Not Given DAILY JAMARCUS Dexamethasone 4 mg 09/11/19 18:00 09/13/19 17:44 Decadron SLOW IVP 4 mg Q6HR JAMARCUS Administration Famotidine 20 mg 09/12/19 09:00 09/13/19 09:50 Pepcid SLOW IVP Not Given DAILY [facility] Folic Acid 1 mg 09/12/19 09:00 09/13/19 09:50 Folvite PO Not Given DAILY [facility] Sodium Chloride 1,000 mls @ 50 mls/hr 09/11/19 21:15 09/13/19 13:21 Normal Saline 0.9% IV 09/13/19 23:59 Not Given .Q20H [facility] Multivitamins 1 tab 09/12/19 09:00 09/13/19 09:51 Theragran PO Not Given DAILY [facility] Nicotine 21 mg 09/12/19 18:00 09/13/19 17:44 Nicoderm Patch TD 21 mg 1800 JAMARCUS Administration Pyridoxine HCl 50 mg 09/12/19 09:00 09/13/19 09:51 Vitamin B 6 PO Not Given DAILY [facility] Thiamine HCl 100 mg 09/12/19 09:00 09/13/19 09:51 Thiamine PO Not Given DAILY [facility] - Exam General Appearance: NAD Heart: RRR, no gallops, no rubs, normal peripheral pulses Respiratory: no wheezes, no rales, no ronchi, normal chest expansion Gastrointestinal: soft, non-tender, non-distended, normal bowel sounds Neurological: no new deficit Psychiatric: normal affect, A&O x 3 Hosp A/P - Plan DVT proph w/SCDs Right-sided weakness secondary to brain mets with vasogenic edema. Lung mass s/p bronch 09/13 Chronic alcoholism. Tobacco dependence. Cannabis abuse. Anxiety. PLAN: Cont Dexamethasone/Pepcid Cont alcohol withdrawal protocol Dr Casey's input appreciated Cont other meds as above Await biopsy Transfer to Oncology
[2019-09-14] MEDS: Dexamethasone 4 mg/ml Vial SLOW IVP SCH ×3 (05:43→17:39)
[2019-09-14] MEDS: Pancrelipase DR 12000 1 CAP PO SCH ×3 (08:30→17:38)
[2019-09-14] MEDS: Multivit, Therapeutic 1 TAB PO SCH (08:31)
[2019-09-14] MEDS: Famotidine/PF 20 mg/2ml Vial SLOW IVP SCH (08:31)
[2019-09-14] MEDS: Folic Acid 1 MG TAB PO SCH (08:31)
[2019-09-14] MEDS: Cyanocobalamin (Vitamin B-12) 1,000 MCG TAB PO SCH (08:31)
[2019-09-14] MEDS: Thiamine 100 MG TAB PO SCH (08:31)
[2019-09-14] MEDS: pyridOXINE 50 MG (B6) TAB PO SCH (09:46)
[2019-09-14] MEDS: BEER 1 CAN PO SCH ×3 (10:11→18:14)
[2019-09-14 13:22] VITALS: BMI 19.4
--- NOTE | 2019-09-14 13:52 | PDOC.HOSPP ---
- Subjective Encounter Date: 09/14/19 Encounter Time: 10:00 Subjective: Patient seen and examined for lung mass with brain mets. No new complaints. No overnight events - Objective Vital Signs & Weight: Vital Signs (12 hours) Temp Pulse Resp BP BP Pulse Ox 09/14/19 08:08 98.2 F 74 18 119/64 99 09/14/19 08:00 119/64 99 09/14/19 03:57 98.6 F 88 16 120/81 95 Weight Admit Weight 96 lb 1.6 oz Weight 99 lb 11.2 oz I&O: 09/13/19 09/14/19 09/15/19 06:59 06:59 06:59 Intake Total 1172 890 Balance 1172 890 Result Diagrams: 09/13/19 04:53 09/13/19 04:52 Hospitalist ROS - Review of Systems Cardiovascular: denies: chest pain, palpitations, orthopnea, paroxysmal noc. dyspnea, edema, light headedness, other Gastrointestinal: denies: nausea, vomiting, abdominal pain, diarrhea, constipation, melena, hematochezia, other - Medication Medications: Active Medications Generic Name Dose Route Start Last Admin Trade Name Freq PRN Reason Stop Dose Admin Acetaminophen 650 mg 09/11/19 20:59 09/12/19 11:21 Tylenol PO 650 mg Q4H PRN Administration Headache/Fever/Mild Pain (1-3) Lipase/Protease/Amylase 1 cap 09/12/19 12:00 09/14/19 12:[address] [place] [address] [id number] PO 1 cap TID-WM JAMARCUS Administration Beer 2 each 09/12/19 17:00 09/14/19 12:44 Beer PO 2 each TID-WM JAMARCUS Administration Chlordiazepoxide HCl 10 mg 09/12/19 09:00 09/14/19 09:44 Librium PO 10 mg TID JAMARCUS Administration Cyanocobalamin 1,000 mcg 09/12/19 09:00 09/14/19 08:31 Vitamin B-12 PO 1,000 mcg DAILY JAMARCUS Administration Dexamethasone 4 mg 09/11/19 18:00 09/14/19 12:07 Decadron SLOW IVP 4 mg Q6HR JAMARCUS Administration Famotidine 20 mg 09/12/19 09:00 09/14/19 08:31 Pepcid SLOW IVP 20 mg DAILY JAMARCUS Administration Folic Acid 1 mg 09/12/19 09:00 09/14/19 08:31 Folvite PO 1 mg DAILY JAMARCUS Administration Multivitamins 1 tab 09/12/19 09:00 09/14/19 08:31 Theragran PO 1 tab DAILY JAMARCUS Administration Nicotine 21 mg 09/12/19 18:00 09/13/19 17:44 Nicoderm Patch TD 21 mg 1800 JAMARCUS Administration Pyridoxine HCl 50 mg 09/12/19 09:00 09/14/19 09:46 Vitamin B 6 PO 50 mg DAILY JAMARCUS Administration Thiamine HCl 100 mg 09/12/19 09:00 09/14/19 08:31 Thiamine PO 100 mg DAILY JAMARCUS Administration - Exam General Appearance: NAD Heart: RRR, no gallops Respiratory: no wheezes, no rales Gastrointestinal: non-tender, non-distended Extremities: no cyanosis, no clubbing Hosp A/P - Plan DVT proph w/SCDs Right-sided weakness secondary to brain mets with vasogenic edema. Lung mass s/p bronch 09/13 Chronic alcoholism. Tobacco dependence. Cannabis abuse. Anxiety. PLAN: Cont IV Dexamethasone Change Pepcid to PO Cont ASE protocol Dr Casey's input appreciated Await biopsy report Cont other meds as above
--- NOTE | 2019-09-14 15:19 | PRG ---
DATE OF SERVICE: 09/14/2019 SERVICE: Pulmonary Medicine. INTERVAL HISTORY: The patient is doing fine from respiratory standpoint. I have reviewed the pathology. There is some atypical cells present, but final stains are going to be required in order to further identify what is going on here. She did not have any significant overnight events. She is not having much in the way of hemoptysis, fevers, or chills. PHYSICAL EXAMINATION: VITAL SIGNS: Afebrile, pulse 86, blood pressure 118/67, respirations 18, and saturation 98% on room air. GENERAL: The patient is awake and alert, in no apparent distress. LUNGS: Decent air entry. No rhonchi or wheezing appreciated. HEART: Normal rate, regular. ABDOMEN: Soft, nontender, and nondistended. Bowel sounds are positive. MUSCULOSKELETAL: No cyanosis or clubbing. There is no pitting in bilateral lower extremities. NEUROLOGIC: Grossly nonfocal. ASSESSMENT: 1. Pulmonary mass. 2. Brain metastases. 3. Alcohol abuse. DISCUSSION AND PLAN: The patient is doing fine from respiratory standpoint. At this point, we are simply awaiting pathology. Pulmonary will continue to follow along while the patient remains inhouse. Unfortunately, there was a lot of necrotic debris, but there were several foci of clusters of atypical cells. Hopefully, this will give us an answer without having to do additional procedures. Job ID: [id number]
--- NOTE | 2019-09-14 15:42 | PRG ---
DATE OF SERVICE: 09/14/2019 SUBJECTIVE: Ms. Valera clinically is doing better today. She is having very little headaches at the present time. She thinks that her writing is improving in her right hand. However, she still has some weakness in the right side. She is only ambulating a very short distance with help. She has no shortness of breath and has had no problems since her bronchoscopy. She voices no other complaints. OBJECTIVE: VITAL SIGNS: Height 5 feet, weight 99 pounds. Blood pressure 118/67, pulse is 86, respirations are 18, temperature 98.6, and O2 saturation is 98% on room air. GENERAL: She is alert and oriented and in no apparent distress. Karnofsky performance status is a 70%. EYES: Pupils are equal, round, and reactive to light. Extraocular movements are intact. ENT: Oral cavity and oropharynx are normal without lesion. Again, her tongue is blackish-coated from her tobacco abuse. Gingiva is intact. Palate elevates symmetrically. NECK: Supple without cervical or supraclavicular adenopathy. No thyromegaly. Larynx midline. LUNGS: Breathing nonlabored. Clear to auscultation and percussion. CARDIOVASCULAR/HEART: Regular rate and rhythm without murmur. ABDOMEN: Soft, nontender, and nondistended without mass or hepatosplenomegaly. Liver percusses normal size. EXTREMITIES: No lower extremity edema. NEUROLOGIC: Motor strength is 5/5 in the left upper and lower extremities in all muscle groups tested. In the right upper extremity, strength is fairly normal. She still has some weakness in the right lower extremity with hip flexors graded to 4/5. Gait was not tested. LABORATORY DATA: CBC revealed a white blood cell count of 9500 with hemoglobin of 12.9, hematocrit of 40.1, and platelet count of 283,000. Chemistry group showed normal electrolytes. Her glucose is 173. ASSESSMENT: Ms. Valera is a 48-year-old female with likely a stage IV, T3 N0 M1 lung carcinoma with brain metastasis. PLAN: Unfortunately, the biopsy will not be available until Tuesday. I did speak with Pathology, who indicated that the biopsy would not be available until Tuesday. I am still not able to make a final treatment recommendation until we get the pathology. If this is a non-small cell lung cancer, then likely the recommendation will be a short course of fractionated radiation with radiosurgery. If the diagnosis is small cell lung cancer, then she will likely be recommended to have whole-brain radiation therapy. I will continue to follow her and will visit with her on Tuesday at some time after her pathology has returned. I would maintain her on dexamethasone and Pepcid. I think the dexamethasone could be switched over to p.o. Job ID: [id number]
[2019-09-14] MEDS: Nicotine 14 MG PATCH TD PRN (17:40)
[2019-09-14] MEDS ORDERED: Dexamethasone 4 MG TAB PO SCH (18:00)
[2019-09-14] MEDS: Famotidine 20 MG TAB PO SCH (20:25)
[2019-09-14] MEDS: Dexamethasone 4 MG TAB PO SCH (23:22)
[2019-09-15] MEDS: Dexamethasone 4 MG TAB PO SCH ×4 (05:36→23:48)
[2019-09-15] MEDS: Famotidine 20 MG TAB PO SCH ×2 (08:26→20:01)
[2019-09-15] MEDS: pyridOXINE 50 MG (B6) TAB PO SCH (08:26)
[2019-09-15] MEDS: Thiamine 100 MG TAB PO SCH (08:26)
[2019-09-15] MEDS: Pancrelipase DR 12000 1 CAP PO SCH ×3 (08:26→17:11)
[2019-09-15] MEDS: Multivit, Therapeutic 1 TAB PO SCH (08:26)
[2019-09-15] MEDS: Cyanocobalamin (Vitamin B-12) 1,000 MCG TAB PO SCH (08:26)
[2019-09-15] MEDS: Folic Acid 1 MG TAB PO SCH (08:27)
[2019-09-15] MEDS: BEER 1 CAN PO SCH ×3 (08:54→17:39)
--- NOTE | 2019-09-15 09:30 | PDOC.HOSPP ---
- Subjective Encounter Date: 09/15/19 Encounter Time: 08:45 Subjective: Patient seen and examined for lung mass. Weakness improving. No new complaints. No overnight events - Objective Vital Signs & Weight: Vital Signs (12 hours) Temp Pulse Resp BP BP Pulse Ox 09/15/19 04:02 104/61 09/15/19 03:44 98.5 F 66 12 104/61 99 09/15/19 00:00 131/81 09/14/19 23:10 98.5 F 82 12 131/87 98 Weight Admit Weight 96 lb 1.6 oz Weight 99 lb 11.2 oz I&O: 09/14/19 09/15/19 09/16/19 06:59 06:59 06:59 Intake Total 890 2740 Balance 890 2740 Result Diagrams: 09/13/19 04:53 09/13/19 04:52 Hospitalist ROS - Review of Systems Respiratory: denies: cough, dry, shortness of breath, hemoptysis, SOB with excertion, pleuritic pain, sputum, wheezing, other Cardiovascular: denies: chest pain, palpitations, orthopnea, paroxysmal noc. dyspnea, edema, light headedness, other - Medication Medications: Active Medications Generic Name Dose Route Start Last Admin Trade Name Freq PRN Reason Stop Dose Admin Acetaminophen 650 mg 09/11/19 20:59 09/12/19 11:21 Tylenol PO 650 mg Q4H PRN Administration Headache/Fever/Mild Pain (1-3) Lipase/Protease/Amylase 1 cap 09/12/19 12:00 09/15/19 08:26 Peyton Jansen [id number] PO 1 cap TID-WM JAMARCUS Administration Beer 2 each 09/12/19 17:00 09/15/19 08:54 Beer PO 2 each TID-WM JAMARCUS Administration Chlordiazepoxide HCl 10 mg 09/12/19 09:00 09/15/19 08:55 Librium PO 10 mg TID JAMARCUS Administration Cyanocobalamin 1,000 mcg 09/12/19 09:00 09/15/19 08:26 Vitamin B-12 PO 1,000 mcg DAILY JAMARCUS Administration Dexamethasone 4 mg 09/14/19 23:59 09/15/19 05:36 Decadron PO 4 mg Q6HR JAMARCUS Administration Famotidine 20 mg 09/14/19 21:00 09/15/19 08:26 Pepcid PO 20 mg BID JAMARCUS Administration Folic Acid 1 mg 09/12/19 09:00 09/15/19 08:27 Folvite PO 1 mg DAILY JAMARCUS Administration Multivitamins 1 tab 09/12/19 09:00 09/15/19 08:26 Theragran PO 1 tab DAILY JAMARCUS Administration Nicotine 14 mg 09/14/19 13:54 09/14/19 17:40 Nicoderm Patch TD 14 mg Q24H PRN Administration Smoking craving Pyridoxine HCl 50 mg 09/12/19 09:00 09/15/19 08:26 Vitamin B 6 PO 50 mg DAILY JAMARCUS Administration Sodium Chloride 10 ml 09/11/19 20:59 09/14/19 20:25 Flush - Normal Saline IVF 10 ml PRN PRN Administration Saline Flush Thiamine HCl 100 mg 09/12/19 09:00 09/15/19 08:26 Thiamine PO 100 mg DAILY JAMARCUS Administration - Exam General Appearance: NAD Neck: supple, no JVD Heart: RRR, no gallops Respiratory: no wheezes, no rales, no ronchi Gastrointestinal: soft, non-tender, normal bowel sounds Extremities: no cyanosis Hosp A/P - Plan PT/OT, DVT proph w/SCDs Right-sided weakness secondary to brain mets with vasogenic edema. Lung mass s/p bronch 09/13 Chronic alcoholism on withdrawal protocol Tobacco dependence. Cannabis abuse. Anxiety. PLAN: Cont PO Dexamethasone/Pepcid Cont ASE protocol Await biopsy report Cont other meds as above
--- NOTE | 2019-09-15 11:11 | EKG ---
Test Reason : Blood Pressure : / mmHG Vent. Rate : 098 BPM Atrial Rate : 098 BPM P-R Int : 108 ms QRS Dur : 066 ms QT Int : 346 ms P-R-T Axes : 059 067 032 degrees QTc Int : 441 ms Sinus rhythm with short WI Possible Left atrial enlargement Abnormal ECG Confirmed by JIMENEZ HAGER ([id number]), photograph editor SUNSHINE LANG ([id number]) on 09/15/2019 11:11:12 AM Referred By: Confirmed By:JIMENEZ HAGER
[2019-09-15] MEDS: Nicotine 14 MG PATCH TD PRN (17:11)
[2019-09-16] MEDS: Dexamethasone 4 MG TAB PO SCH ×4 (05:07→23:55)
[2019-09-16] MEDS: Cyanocobalamin (Vitamin B-12) 1,000 MCG TAB PO SCH (09:22)
[2019-09-16] MEDS: Pancrelipase DR 12000 1 CAP PO SCH ×3 (09:22→18:10)
[2019-09-16] MEDS: BEER 1 CAN PO SCH ×3 (09:22→18:10)
[2019-09-16] MEDS: Folic Acid 1 MG TAB PO SCH (09:23)
[2019-09-16] MEDS: Multivit, Therapeutic 1 TAB PO SCH (09:23)
[2019-09-16] MEDS: Thiamine 100 MG TAB PO SCH (09:23)
[2019-09-16] MEDS: Famotidine 20 MG TAB PO SCH ×2 (09:23→20:08)
[2019-09-16] MEDS: pyridOXINE 50 MG (B6) TAB PO SCH (09:23)
[2019-09-16] MEDS: Lorazepam 1 MG TAB PO PRN ×2 (09:33→20:09)
--- NOTE | 2019-09-16 15:19 | PDOC.HOSPP ---
- Subjective Encounter Date: 09/16/19 Encounter Time: 14:30 Subjective: Patient seen and examined for Lung mass. Feeling better. No new complaints. No overnight events - Objective Vital Signs & Weight: Vital Signs (12 hours) Temp Pulse Resp BP BP BP Pulse Ox 09/16/19 12:09 98.3 F 96 16 152/91 H 99 09/16/19 09:00 98.6 F 80 18 128/79 99 09/16/19 07:30 98 09/16/19 05:00 98.4 F 75 12 104/61 98 09/16/19 04:00 104/61 Weight Admit Weight 96 lb 1.6 oz Weight 99 lb 11.2 oz I&O: 09/15/19 09/16/19 09/17/19 06:59 06:59 06:59 Intake Total 2740 2630 Balance 2740 2630 Result Diagrams: 09/13/19 04:53 09/13/19 04:52 Hospitalist ROS - Review of Systems Respiratory: denies: cough, dry, shortness of breath, hemoptysis, SOB with excertion, pleuritic pain, sputum, wheezing, other Cardiovascular: denies: chest pain, palpitations, orthopnea, paroxysmal noc. dyspnea, edema, light headedness, other - Medication Medications: Active Medications Generic Name Dose Route Start Last Admin Trade Name Freq PRN Reason Stop Dose Admin Acetaminophen 650 mg 09/11/19 20:59 09/12/19 11:21 Tylenol PO 650 mg Q4H PRN Administration Headache/Fever/Mild Pain (1-3) Lipase/Protease/Amylase 1 cap 09/12/19 12:00 09/16/19 12:[address] [place] [id number] PO 1 cap TID-WM JAMARCUS Administration Beer 2 each 09/12/19 17:00 09/16/19 12:55 Beer PO 2 each TID-WM JAMARCUS Administration Chlordiazepoxide HCl 10 mg 09/12/19 09:00 09/16/19 15:08 Librium PO 10 mg TID JAMARCUS Administration Cyanocobalamin 1,000 mcg 09/12/19 09:00 09/16/19 09:22 Vitamin B-12 PO 1,000 mcg DAILY JAMARCUS Administration Dexamethasone 4 mg 09/14/19 23:59 09/16/19 12:55 Decadron PO 4 mg Q6HR JAMARCUS Administration Famotidine 20 mg 09/14/19 21:00 09/16/19 09:23 Pepcid PO 20 mg BID JAMARCUS Administration Folic Acid 1 mg 09/12/19 09:00 09/16/19 09:23 Folvite PO 1 mg DAILY JAMARCUS Administration Lorazepam 1 mg 09/11/19 21:08 09/16/19 09:33 Ativan PO 1 mg Q4H PRN Administration ASE >=9 Multivitamins 1 tab 09/12/19 09:00 09/16/19 09:23 Theragran PO 1 tab DAILY JAMARCUS Administration Nicotine 14 mg 09/14/19 13:54 09/15/19 17:11 Nicoderm Patch TD 14 mg Q24H PRN Administration Smoking craving Pyridoxine HCl 50 mg 09/12/19 09:00 09/16/19 09:23 Vitamin B 6 PO 50 mg DAILY JAMARCUS Administration Sodium Chloride 10 ml 09/11/19 20:59 09/14/19 20:25 Flush - Normal Saline IVF 10 ml PRN PRN Administration Saline Flush Thiamine HCl 100 mg 09/12/19 09:00 09/16/19 09:23 Thiamine PO 100 mg DAILY JAMARCUS Administration - Exam General Appearance: NAD Heart: RRR, no gallops Respiratory: no wheezes, no rales Gastrointestinal: non-tender, non-distended, normal bowel sounds Extremities: no edema Hosp A/P - Plan PT/OT, out of bed/ambulate, DVT proph w/SCDs Right-sided weakness secondary to brain mets with vasogenic edema. Lung mass s/p bronch 09/13. Chronic alcoholism. Tobacco dependence. Cannabis abuse. Anxiety. PLAN: Cont oral Dexamethasone/Pepcid Cont ASE protocol with Ativan Await Bronchial biopsy report Cont other meds as above
[2019-09-17] MEDS: Dexamethasone 4 MG TAB PO SCH ×4 (05:26→23:26)
[2019-09-17] MEDS: Thiamine 100 MG TAB PO SCH (08:49)
[2019-09-17] MEDS: pyridOXINE 50 MG (B6) TAB PO SCH (08:49)
[2019-09-17] MEDS: Pancrelipase DR 12000 1 CAP PO SCH ×3 (08:49→16:46)
[2019-09-17] MEDS: Famotidine 20 MG TAB PO SCH ×2 (08:50→20:50)
[2019-09-17] MEDS: Multivit, Therapeutic 1 TAB PO SCH (08:50)
[2019-09-17] MEDS: Cyanocobalamin (Vitamin B-12) 1,000 MCG TAB PO SCH (08:50)
[2019-09-17] MEDS: Folic Acid 1 MG TAB PO SCH (08:50)
[2019-09-17] MEDS: BEER 1 CAN PO SCH ×4 (08:52→20:50)
--- NOTE | 2019-09-17 13:46 | PRG ---
DATE OF SERVICE: 09/17/2019 SUBJECTIVE: I visited with Ms. Valera. She is feeling stronger over the weekend. She is having no headaches or shortness of breath. Her right leg is stronger, but she still must walk with assistance. She voices no other complaints. She has no shortness of breath. OBJECTIVE: VITAL SIGNS: Height 5 feet, weight 99 pounds, blood pressure 139/85, pulse is 83, respirations are 16, temperature is 98.5, and O2 saturation is 97%. GENERAL: She is alert and oriented and in no apparent distress. Karnofsky performance status is 70%. EYES: Pupils are equal, round, and reactive to light. Extraocular movements are intact. ENT: Oral cavity and oropharynx are normal without lesion or erythema. Gingiva is intact. NECK: Supple without cervical or supraclavicular adenopathy. No thyromegaly. LUNGS: Breathing is nonlabored. Clear to auscultation and percussion. CARDIOVASCULAR: Heart, regular rate and rhythm without murmur. No lower extremity edema. ABDOMEN: Soft, nontender, nondistended without mass or hepatosplenomegaly. Liver percusses normal size. NEUROLOGIC: Right leg is stronger than previous, but is still weaker than the left leg. LABORATORY DATA: Pathology unfortunately was nondiagnostic. It was called rare atypical cells suspicious, but not diagnostic for non-small cell carcinoma. No malignancy was identified. ASSESSMENT: Ms. Valera is a 48-year-old female, who likely has a stage IV, T3 N0 M1 lung carcinoma. Unfortunately, we still have not made tissue diagnosis in large part because at bronchoscopy much of the sample was necrotic. PLAN: I will discuss this with Dr. Guevara. I would defer to him as to whether to proceed with repeat bronchoscopy or CT-guided biopsy. I suspect that he will likely choose the latter. I did discuss this with Ms. Valera. I explained that we still do not have tissue diagnosis. Hopefully, we will have tissue diagnosis in the near future and then can make decisions on how to treat the lesions in the brain. Job ID: [id number]
--- NOTE | 2019-09-17 14:02 | PRG ---
DATE OF SERVICE: 09/17/2019 SERVICE: Pulmonary Medicine. INTERVAL HISTORY: The pathology results came back. I was able to provide them with significant amounts of tissue, but almost all of it was necrotic. There was 1 or 2 small foci of material that was consistent with very atypical cells. Where they are more of them, they would probably have called it non-small cell. That being said, there just simply was not enough viable tissue for them to make that call. As such, we ended up with a nondiagnostic procedure. The patient denies any current chest discomfort, nausea, or vomiting. She is not really withdrawing from alcohol at this point. She is being more active. She is able to get up and walk around without much difficulties. PHYSICAL EXAMINATION: VITAL SIGNS: Afebrile, pulse 83, blood pressure 139/85, respirations 16, saturation 97% on room air. GENERAL: The patient is awake and alert, in no apparent distress. LUNGS: Wonderful air entry with no prolonged expiratory phase or wheezing present. HEART: Normal rate, regular. ABDOMEN: Soft, nontender, and nondistended. Bowel sounds are positive. MUSCULOSKELETAL: No cyanosis or clubbing. There is no pitting edema. NEUROLOGIC: Grossly nonfocal today. LABORATORY DATA: WBC 9.5, hemoglobin 12.9, and platelets 283,000. Basic metabolic profile is otherwise unremarkable. ASSESSMENT: 1. Pulmonary mass, bronch was nondiagnostic with sheets of necrotic tissue and one or two nests with atypical features that could be consistent with non-small cell, though the paucity of cells prevented a firm diagnosis. 2. Brain metastasis. 3. Alcohol abuse. DISCUSSION AND PLAN: I talked to Interventional Radiology. They indicate that they should not have any problem hitting this thing, but their concerns are that they are going to have necrotic debris as well. As such, we will simply move forward with a transcutaneous biopsy. If this is once again nondiagnostic, an open procedure maybe required moving forward. Hopefully, we will be able to avoid that altogether. After the biopsy is performed, she would be stable for discharge from the hospital with close outpatient followup with Oncology. At this point, she has no formal need for Pulmonary or Critical Care opinion, and I will sign off. Please call with additional questions or concerns or if additional sampling procedures are need to be pursued. Job ID: [id number]
[2019-09-17 16:12] LABS: Prothrombin Time 13.3 SEC (12.0-14.7)
[2019-09-17 16:13] LABS: PTT 19.9 SEC (22.9-36.1)
[2019-09-17] MEDS: Lorazepam 1 MG TAB PO PRN (16:15)
--- NOTE | 2019-09-17 18:00 | PDOC.HOSPP ---
- Subjective Encounter Date: 09/17/19 Encounter Time: 09:00 Subjective: Patient seen and examined for ?Lung CA with mets. No new complaints. No overnight events - Objective Vital Signs & Weight: Vital Signs (12 hours) Temp Pulse Resp BP BP Pulse Ox 09/17/19 17:00 98.4 F 93 16 136/71 100 09/17/19 16:00 136/71 09/17/19 12:20 98.5 F 83 16 139/85 97 09/17/19 08:00 124/88 99 09/17/19 07:35 98.2 F 72 16 124/76 99 Weight Admit Weight 96 lb 1.6 oz Weight 99 lb 11.2 oz I&O: 09/16/19 09/17/19 09/18/19 06:59 06:59 06:59 Intake Total 2630 500 Balance 2630 500 Result Diagrams: 09/13/19 04:53 09/13/19 04:52 Hospitalist ROS - Review of Systems Respiratory: denies: cough, dry, shortness of breath, hemoptysis, SOB with excertion, pleuritic pain, sputum, wheezing, other Cardiovascular: denies: chest pain, palpitations, orthopnea, paroxysmal noc. dyspnea, edema, light headedness, other - Medication Medications: Active Medications Generic Name Dose Route Start Last Admin Trade Name Freq PRN Reason Stop Dose Admin Acetaminophen 650 mg 09/11/19 20:59 09/12/19 11:21 Tylenol PO 650 mg Q4H PRN Administration Headache/Fever/Mild Pain (1-3) Lipase/Protease/Amylase 1 cap 09/12/19 12:00 09/17/19 16:[address] [place] [id number] PO 1 cap TID-WM JAMARCUS Administration Beer 1 each 09/17/19 17:00 09/17/19 17:54 Beer PO 1 each QID JAMARCUS Administration Cyanocobalamin 1,000 mcg 09/12/19 09:00 09/17/19 08:50 Vitamin B-12 PO 1,000 mcg DAILY JAMARCUS Administration Famotidine 20 mg 09/14/19 21:00 09/17/19 08:50 Pepcid PO 20 mg BID JAMARCUS Administration Folic Acid 1 mg 09/12/19 09:00 09/17/19 08:50 Folvite PO 1 mg DAILY JAMARCUS Administration Lorazepam 1 mg 09/11/19 21:08 09/17/19 16:15 Ativan PO 1 mg Q4H PRN Administration ASE >=9 Multivitamins 1 tab 09/12/19 09:00 09/17/19 08:50 Theragran PO 1 tab DAILY JAMARCUS Administration Nicotine 14 mg 09/14/19 13:54 09/15/19 17:11 Nicoderm Patch TD 14 mg Q24H PRN Administration Smoking craving Pyridoxine HCl 50 mg 09/12/19 09:00 09/17/19 08:49 Vitamin B 6 PO 50 mg DAILY JAMARCUS Administration Sodium Chloride 10 ml 09/11/19 20:59 09/14/19 20:25 Flush - Normal Saline IVF 10 ml PRN PRN Administration Saline Flush Thiamine HCl 100 mg 09/12/19 09:00 09/17/19 08:49 Thiamine PO 100 mg DAILY JAMARCUS Administration - Exam General Appearance: NAD Neck: no JVD Heart: RRR, no gallops Respiratory: no wheezes, no rales Gastrointestinal: non-tender, non-distended, normal bowel sounds Extremities: no cyanosis Hosp A/P - Plan DVT proph w/SCDs Right-sided weakness secondary to brain mets with vasogenic edema. Lung mass s/p bronch 09/13. Chronic alcoholism. Tobacco dependence. Cannabis abuse. Anxiety. PLAN: Await Bronchial biopsy report Reduce Dexamethasone dose - I d/w Dr Ayala Cont Pepcid Cont ASE protocol Cont other meds as above
--- NOTE | 2019-09-17 18:03 | CON ---
DATE OF CONSULTATION: REASON FOR CONSULTATION: Lung cancer with brain mets. HISTORY OF PRESENT ILLNESS: Ms. Valera is a pleasant 48-year-old female with a history of chronic alcoholism and tobacco use, who presented to the emergency room with migraine headache. She was having some right-sided weakness and visual changes. In the emergency room, she had a CT scan of the brain, which showed a lesion worrisome for metastatic disease. She then underwent an MRI, which showed 3 contrast-enhancing lesions, one on the left occipital parietal area measuring 1.9 cm. There was another left occipital lesion measuring 1.3 x 1.5 cm. There was a 0.4 cm lesion in the left cerebellar hemisphere. She then underwent a CT scan of the chest, abdomen, and pelvis. She had a 5.4 cm right lower lobe mass in the lung. There were no liver mets. She was seen by Neurosurgery and Dr. Casey, placed on steroids with improvement of her symptoms. She underwent a bronchoscopy with biopsy, which unfortunately returned nondiagnostic. The patient was seen at bedside. She continues to have appeared daily as an inpatient. No symptoms of alcohol withdrawal. She is tearful at bedside during our conversation. PAST MEDICAL HISTORY: 1. Chronic alcoholism. 2. Tobacco use. 3. Marijuana use. 4. History of pancreatitis. 5. Anxiety and depression. PAST SURGICAL HISTORY: None. ALLERGIES: NO KNOWN DRUG ALLERGIES. CURRENT MEDICATIONS: 1. Creon. 2. Tylenol. 3. . 4. Dulcolax. 5. Librium. 6. Catapres. 7. B12. 8. Decadron. 9. Pepcid. 10. Folvite. 11. Ativan. 12. Theragran. 13. Nicotine patch. 14. Zofran. 15. B6. 16. Senokot. 17. Thiamin. FAMILY HISTORY: She had an uncle with cancer, unknown type. SOCIAL HISTORY: Lives with significant other. Drinks a 12-pack of beer daily, a pack of cigarettes daily, cannabis routinely. REVIEW OF SYSTEMS: A 10-point review of systems is negative. PHYSICAL EXAMINATION: VITAL SIGNS: Temperature is 98.5, pulse is 83, respiratory rate 16, blood pressure is 139/85. She is 97% on room air. GENERAL: This is a well-developed, well-nourished female, in no acute distress. HEENT: Normocephalic and atraumatic. Pupils are equal and reactive to light. NECK: Supple. CV: Regular rate and rhythm. LUNGS: Clear, but diminished in her right lower lobe. ABDOMEN: Soft. Bowel sounds are positive. EXTREMITIES: There is no clubbing or cyanosis. SKIN: She had multiple tattoos. No rash. NEUROLOGIC: She has mild right-sided weakness. BREASTS: No palpable masses, lumps, or skin changes. PERTINENT LABORATORY DATA AND X-RAYS: Current WBCs are 9.5, hemoglobin 12.9, hematocrit 40.1, platelet count 283,000, she got 89% neutrophils, 7% lymphocytes. Sodium is 139, potassium 3.9, chloride 108, CO2 is 22, BUN is 14, creatinine 0.68, calcium 8.9, phosphorus 3.3, magnesium 2.2, bilirubin 0.3, AST 31, ALT is 22, alkaline phosphatase is 88. Serum total protein 7.2, albumin 4, globulin 3.2. Troponin is negative. Urine was negative. test was negative. Radiology per HPI. ASSESSMENT: 1. Stage IV lung cancer with brain mets. 2. Chronic and current alcohol abuse. 3. [id number] history of smoking. DISCUSSION: The patient's bronchoscopy was nondiagnostic - the plan is for a CT-guided needle biopsy tomorrow for additional tissue. We would continue the steroids per Dr. Casey. She will need radiation and chemo immunotherapy. We discussed her disease process. This is stage IV disease. She can certainly be treated, but would ideally stop drinking beer daily and stop smoking if possible. She has her financial papers at bedside and she was encouraged to fill those out, so hopefully, she can be approved and we can start treatment as soon as we have a diagnosis. Our clinic information was provided and we will follow up with her in the outpatient setting. Job ID: [id number]
[2019-09-18] MEDS: Dexamethasone 4 MG TAB PO SCH ×3 (05:16→18:45)
[2019-09-18] MEDS: pyridOXINE 50 MG (B6) TAB PO SCH (09:00)
[2019-09-18] MEDS: Folic Acid 1 MG TAB PO SCH (09:00)
[2019-09-18] MEDS: BEER 1 CAN PO SCH ×4 (09:00→22:24)
[2019-09-18] MEDS: Cyanocobalamin (Vitamin B-12) 1,000 MCG TAB PO SCH (09:00)
[2019-09-18] MEDS: Famotidine 20 MG TAB PO SCH ×2 (09:00→20:37)
[2019-09-18] MEDS: Thiamine 100 MG TAB PO SCH (09:00)
[2019-09-18] MEDS: Multivit, Therapeutic 1 TAB PO SCH (09:00)
[2019-09-18] MEDS ORDERED: Sodium Bicarbonate 2.5 MEQ/5 ML VIAL ONE (09:45)
[2019-09-18] MEDS ORDERED: Fentanyl 100 MCG/2 ML VIAL ONE (09:45)
[2019-09-18] MEDS ORDERED: Midazolam HCl 2 mg/2 ml Vial ONE (09:45)
[2019-09-18] MEDS: Acetaminophen 325 MG TAB PO PRN (11:49)
--- NOTE | 2019-09-18 13:38 | RAD ---
EXAM: XR Chest Insp/Exp PROVIDED CLINICAL HISTORY: Postbiopsy of right lower lobe mass. COMPARISON: 09/11/2019 FINDINGS: As noted on the prior exam, there is a large right lower lobe mass. There is evidence of a pneumothor ax which does appear to occupy just greater than 15% of the volume of the right hemithorax and better visualized on the expiratory phase of imaging. The left lung is clear. The cardiac silhouette and pulmonary vasculature are within normal limits. No other interval change. IMPRESSION: 1. Right-sided pneumothorax as described above. 2. Above findings were discussed with Dr. Guevara at the time of this chest x-ray.
--- NOTE | 2019-09-18 14:03 | CT ---
EXAM: CT Lung Perc Biopsy PROVIDED CLINICAL HISTORY: Large necrotic right lower lobe mass. Prior bronchoscopy yielded multiple specimens of necrotic tissu e. Percutaneous biopsy was requested in an attempt to obtain diagnostic tissue for further evaluation. COMPARISON: CT thorax on 09/11/2019 TECHNIQUE: The procedure including the risks and complications were explained to the patient, and informed conse nt was obtained. Patient was placed on the CT scan table in the prone position. A limited noncontrasted CT scan was obtained to the level of the mass. However, the mass was inaccessible for b iopsy in this position. As result, a noncontrasted CT scan thorax in left lateral decubitus position was performed with grid localizer in place. An area was marked overlying the posterior lateral subcutaneous soft tissues. The area was meticulous ly prepped and draped in usual sterile fashion. Skin and subcutaneous tissues were infiltrated with buffered 1% lidocaine for local anesthesia. A small skin incision was made. A 19-gauge guide needle was advanced followed by axial noncontrasted CT images. This was repeated unt il the tip the needle was placed just within the peripheral and posterior aspect of the large right lower lobe mass. A total of three 20-gauge core needle biopsy specimens were obtained utilizing coaxi al technique. Specimens were evaluated by the pathologist, and adequate tissue sampling was reported. Final pathology report is pending. The needle was removed, and noncontrasted CT scan was obtained through the chest. A small pneumothora x was noted. Patient tolerated the procedure well and without immediate complication. Patient denies chest pain with regards to the small pneumothorax. Patient was transported to her hospital [facility] in stable condition. A follow-up chest x-ray was performed post procedure which demonstrated a pneumothorax on the right. Findings were discussed with Dr. Guevara at this time. An additional follow-up chest x-ray was requested. IMPRESSION: 1. Large necrotic right lower lobe mass. 2. Technically successful percutaneous CT guided biopsy of right lower lobe mass. Pathology is pendin g. 3. Small right-sided pneumothorax identified post procedure.
--- NOTE | 2019-09-18 14:52 | RAD ---
INSPIRATORY AND EXPIRATORY CHEST RADIOGRAPH: Date: 09/18/2019 Time: 1430 hours COMPARISON: 09/18/2019 at 1154 hours. HISTORY: Evaluate pneumothorax following lung biopsy. FINDINGS: Interval enlargement of right-sided pneumothorax seen. This right-sided pneumothorax is large with co ntinuing worsening of volume loss within the right lung. No left pneumothorax. Heart and mediastinal contours are stable. There is a mass within the right base measuring up to 7.0 cm. IMPRESSION: Enlarging right pneumothorax. Dr. Guevara made aware via phone by Dr. Rosen at 1448 hours on 09/18/2019. CODE CR. POS: [facility]
--- NOTE | 2019-09-18 15:27 | PRG ---
DATE OF SERVICE: 09/18/2019 SERVICE: Pulmonary Medicine. INTERVAL HISTORY: The patient underwent a transcutaneous thoracentesis today. The procedure was complicated by a pneumothorax. This was certainly an expected complication. Thankfully, at first glance, it appeared there was some viable tissue that was obtained. Hopefully, it will give us our diagnosis. Currently, she is not short of breath. We put her on a non-rebreather for a period of time. We are hoping to resolve this without any significant interventions, but on serial chest x-rays, there was increasing size of the pneumothorax. As such, we were preparing for a right-sided chest tube placement. Otherwise, there has been no interval change to her condition. She has no specific complaints. PHYSICAL EXAMINATION: VITAL SIGNS: Afebrile, pulse 62, blood pressure 131/71, respirations 15, saturation 100%, currently on non-rebreather. HEENT: Normocephalic and atraumatic. Sclerae are white. Conjunctivae are pink. Oral mucosa is moist without lesions. LUNGS: Decent air entry on the left. Decreased air entry on the right. No prolonged expiratory phase or wheezing. No crackles or rhonchi are appreciated. HEART: Normal rate, regular. ABDOMEN: Soft, nontender, and nondistended. Bowel sounds are positive. MUSCULOSKELETAL: No cyanosis or clubbing. There is no pitting in the bilateral lower extremities. NEUROLOGIC: Grossly nonfocal. LABORATORY DATA: WBC 9.5, hemoglobin 12.9, and platelets 283,000. Basic metabolic profile is unremarkable. Respiratory culture is negative. C diff antigen and toxin are unremarkable. IMAGING: Chest x-ray demonstrates interval development of an enlarging pneumothorax on the right. I would characterize it as moderate to large. ASSESSMENT: 1. Acute hypoxic respiratory failure. 2. Pneumothorax, iatrogenic secondary to transcutaneous procedure. 3. Pulmonary mass, status post nondiagnostic bronch and subsequent transcutaneous biopsy. 4. Brain metastasis. 5. Alcohol abuse. DISCUSSION AND PLAN: We will make ready to do an anterior second intercostal space chest tube. The patient will remain in the hospital for an additional day. I will repeat a chest x-ray after the procedure and tomorrow morning. Pulmonary will follow closely. Job ID: [id number]
[2019-09-18] MEDS ORDERED: Morphine 4 MG/ML VIAL ONE (15:31)
[2019-09-18] MEDS ORDERED: Morphine 2 MG/ML SYRINGE SLOW IVP PRN (15:49)
[2019-09-18] MEDS ORDERED: traMADol HCl 50 MG TAB PO PRN (15:50)
[2019-09-18] MEDS ORDERED: Morphine 4 MG/ML VIAL SLOW IVP SCH (17:00)
--- NOTE | 2019-09-18 17:36 | RAD ---
Exam: Chest one view HISTORY:Status post chest tube placement. Right lung mass. Comparison: 09/11/2019 FINDINGS: Cardiac silhouette: Normal Aorta: Unremarkable Pulmonary vessels: Normal Costophrenic angles: Clear LUNGS: Redemonstration of a mass in the right lower lobe. Subcutaneous emphysema in the right hemitho rax. Pneumothorax: Small bore right-sided chest tube. No evidence of a right or left-sided pneumothorax. Osseous abnormalities: None IMPRESSION: 1. Right-sided mass. 2. Subcutaneous emphysema. 3. Small bore right-sided chest tube. 4. No definite right sided pneumothorax.
--- NOTE | 2019-09-18 18:53 | OP ---
DATE OF PROCEDURE: 09/18/2019 SERVICE: Pulmonary Medicine. PROCEDURE PERFORMED: Right-sided chest tube placement. CONSENT: The risks and benefits of the procedure were discussed with the patient prior to initiating. All questions were answered and alternative options explained. STAFF PHYSICIAN: Rip Guevara MD MEDICATIONS USED: Lidocaine 1% without epinephrine, 10 mL. PREOPERATIVE DIAGNOSIS: Pneumothorax, iatrogenic. POSTPROCEDURE DIAGNOSIS: Pneumothorax, iatrogenic. DESCRIPTION OF PROCEDURE: Time-out was performed by the procedure team and patient. The patient was positively identified using name and date of . The procedure site was marked. Vital sign monitoring was accomplished by noninvasive hemodynamic monitoring and pulse oximetry. In the semi-recumbent position, the right hemithorax was prepped and draped in sterile fashion and anesthetized with 1% lidocaine without epinephrine. A finder needle was inserted in the pleural space with return of air. An 8-Turkish chest tube was then placed anteriorly in the midclavicular line in the second intercostal space. The chest tube was secured with silk suture x1 stitch. Sterile dressing was applied. The chest tube was hooked up to a Heimlich valve. Repeat chest x-ray is pending at the time of dictation. ESTIMATED BLOOD LOSS: 2 mL. COMPLICATIONS: None. Job ID: [id number]
--- NOTE | 2019-09-18 22:16 | PDOC.HOSPP ---
- Subjective Encounter Date: 09/18/19 Encounter Time: 13:00 Subjective: Patient seen and examined for med mngt. s/p Lung biopsy. On high flow O2 for Pneumothorax. No new complaints. No overnight events - Objective Vital Signs & Weight: Vital Signs (12 hours) Temp Pulse Resp BP BP BP Pulse Ox 09/18/19 20:00 100 09/18/19 19:19 97.9 F 65 16 131/79 100 09/18/19 16:45 66 149/71 H 09/18/19 16:15 69 18 136/80 09/18/19 16:00 96.9 F L 62 15 131/71 100 09/18/19 12:00 131/71 09/18/19 11:45 97.5 F L 62 15 131/71 100 Weight Admit Weight 96 lb 1.6 oz Weight 99 lb 11.2 oz I&O: 09/17/19 09/18/19 09/19/19 06:59 06:59 06:59 Intake Total 500 240 Balance 500 240 Result Diagrams: 09/13/19 04:53 09/13/19 04:52 Radiology Reviewed by me: Yes (CXR - Pneumothorax) Hospitalist ROS - Review of Systems Cardiovascular: denies: chest pain, palpitations, orthopnea, paroxysmal noc. dyspnea, edema, light headedness, other Gastrointestinal: denies: nausea, vomiting, abdominal pain, diarrhea, constipation, melena, hematochezia, other - Medication Medications: Active Medications Generic Name Dose Route Start Last Admin Trade Name Freq PRN Reason Stop Dose Admin Acetaminophen 650 mg 09/11/19 20:59 09/18/19 11:49 Tylenol PO 650 mg Q4H PRN Administration Headache/Fever/Mild Pain (1-3) Beer 1 each 09/17/19 17:00 09/18/19 17:19 Beer PO 1 each QID JAMARCUS Administration Cyanocobalamin 1,000 mcg 09/12/19 09:00 09/18/19 09:00 Vitamin B-12 PO Not Given DAILY JAMARCUS Dexamethasone 2 mg 09/17/19 18:00 09/18/19 18:45 Decadron PO 2 mg Q6HR JAMARCUS Administration Famotidine 20 mg 09/14/19 21:00 09/18/19 20:37 Pepcid PO 20 mg BID JAMARCUS Administration Folic Acid 1 mg 09/12/19 09:00 01/21/20 09:00 Folvite PO Not Given DAILY JAMARCUS Lorazepam 1 mg 09/11/19 21:08 09/17/19 16:15 Ativan PO 1 mg Q4H PRN Administration ASE >=9 Multivitamins 1 tab 09/12/19 09:00 09/18/19 09:00 Theragran PO Not Given DAILY JAMARCUS Nicotine 14 mg 09/14/19 13:54 09/15/19 17:11 Nicoderm Patch TD 14 mg Q24H PRN Administration Smoking craving Pyridoxine HCl 50 mg 09/12/19 09:00 09/18/19 09:00 Vitamin B 6 PO Not Given DAILY JAMARCUS Sodium Chloride 10 ml 09/11/19 20:59 09/14/19 20:25 Flush - Normal Saline IVF 10 ml PRN PRN Administration Saline Flush Thiamine HCl 100 mg 09/12/19 09:00 09/18/19 09:00 Thiamine PO Not Given DAILY JAMARCUS - Exam General Appearance: NAD Neck: supple, no JVD Respiratory: no wheezes, rhonchi Respiratory - other findings: dec AE on Rt Gastrointestinal: soft, non-tender, non-distended, normal bowel sounds Extremities: no edema Hosp A/P - Plan DVT proph w/SCDs Right-sided weakness secondary to brain mets with vasogenic edema. Lung mass s/p bronch 09/13.s/p CT guided Lung biopsy 09/18 Pneumothorax Chronic alcoholism. Tobacco dependence. Cannabis abuse. Anxiety. PLAN: Cont high flow O2 Cont 2 mg Q6h Dexamethasone with Pepcid Cont ASE protocol Cont other meds as above Repeat CXR later today
[2019-09-19] MEDS ORDERED: diphenhydrAMINE 25 MG CAP PO PRN (00:24)
[2019-09-19] MEDS: Dexamethasone 4 MG TAB PO SCH ×3 (00:39→12:45)
[2019-09-19] MEDS: Thiamine 100 MG TAB PO SCH (08:46)
[2019-09-19] MEDS: Multivit, Therapeutic 1 TAB PO SCH (08:46)
[2019-09-19] MEDS: Folic Acid 1 MG TAB PO SCH (08:46)
[2019-09-19] MEDS: Cyanocobalamin (Vitamin B-12) 1,000 MCG TAB PO SCH (08:46)
[2019-09-19] MEDS: Famotidine 20 MG TAB PO SCH (08:46)
--- NOTE | 2019-09-19 08:48 | PRG ---
DATE OF SERVICE: 09/19/2019 SERVICE: Pulmonary Medicine. INTERVAL HISTORY: The patient had an uneventful evening. She had some chest discomfort anteriorly. That being said, it was fairly short-lived. We gave her couple of doses of morphine and it took care of that. She rested comfortably last night. No fevers or chills. Otherwise, there were no significant events. PHYSICAL EXAMINATION: VITAL SIGNS: Afebrile, pulse 61, blood pressure 116/57, respirations 16, and saturation 98% on room air. GENERAL: The patient is awake and alert, in no apparent distress. LUNGS: Wonderful air entry. No prolonged expiratory phase. There is no wheezing. Minimal rhonchi. HEART: Normal rate, regular. ABDOMEN: Soft, nontender, and nondistended. Bowel sounds are positive. MUSCULOSKELETAL: No cyanosis or clubbing. No pitting in bilateral lower extremities. NEUROLOGIC: Grossly nonfocal. IMAGING DATA: Chest x-ray demonstrates good expansion of the right lung. Small anterior thoracostomy tube is in place. ASSESSMENT: 1. Acute hypoxic respiratory failure, resolved. 2. Iatrogenic pneumothorax. 3. Pulmonary mass, status post nondiagnostic bronchoscopy and subsequent transcutaneous biopsy. 4. Brain metastasis. 5. Alcohol abuse. DISCUSSION AND PLAN: The patient is doing fine from respiratory standpoint. I will clamp per tube. I will repeat a chest x-ray around 11:30. If the chest remains up, the chest tube can be removed, and we can consider her for discharge from the hospital. I have given her explicit instructions to return to the emergency department with recurrence of pleuritic chest discomfort, or increasing shortness of breath. Pulmonary will continue to follow if she remains in-house for the time being, however. Job ID: [id number]
[2019-09-19] MEDS: pyridOXINE 50 MG (B6) TAB PO SCH (08:52)
[2019-09-19] MEDS: BEER 1 CAN PO SCH ×2 (09:26→12:45)
--- NOTE | 2019-09-19 09:45 | RAD ---
PORTABLE CHEST: INDICATIONS: Follow up pneumonia. Follow up right lung biopsy. COMPARISON: 09/18/2019 FINDINGS: The large mass in the right lower lung is again noted. A small caliber chest tube overlies the right chest, unchanged. There is mild subcutaneous emphysema overlying the lower right chest. No significant pneumothorax dora ntified. The left lung remains clear. IMPRESSION: No acute interval change. POS: [facility]
[2019-09-19 09:57] VITALS: BP 111/66
[2019-09-19 09:58] VITALS: TEMP 98.4
--- NOTE | 2019-09-19 11:34 | RAD ---
CHEST 1 VIEW UPRIGHT PORTABLE: Date: 09/19/2019 HISTORY: Chest tube is clamped. COMPARISON: 09/19/2019, 0603 hours. FINDINGS: Again noted is a large mass in the right lower lobe. There is some subcutaneous emphysema on the righ t. Small caliber right-sided chest tube is noted. Very small residual pneumothorax medially in the ri ght lower chest. Left lung is clear. Minimal right pleural changes. IMPRESSION: Very small residual right-sided pneumothorax adjacent to the right heart border region. Stable from p rior study. POS: [facility]
--- NOTE | 2019-09-20 09:46 | DIS ---
DATE OF ADMISSION: 09/11/2019 DATE OF DISCHARGE: 09/19/2019 DISCHARGE DISPOSITION: Home. FOLLOWUP: 1. Follow up with primary care physician at [facility] in 1 week. 2. Follow up with Oncology, Radiation Oncology, Neurosurgery, and Pulmonary as scheduled. DISCHARGE MEDICATION: 1. Dexamethasone 2 mg 3 times daily. 2. Pepcid 20 mg b.i.d. 3. Augmentin 875 mg b.i.d. for next 10 days. 4. Patient was advised to take thiamine, folic acid, multivitamin and [id number] calcium. BRIEF HOSPITAL COURSE: The patient is a 48-year-old white female with chronic alcoholism and tobacco dependence, presented to the hospital with right-sided weakness of 2 months duration. Her workup in the emergency room was consistent with extensive vasogenic edema in the left cerebrum along with an intra-axial mass. She was monitored in the stroke unit. An MRI of the brain was obtained that showed multifocal intracranial/intra-axial masses compatible with metastasis along with mass effect. She was placed on IV dexamethasone on admission. She was evaluated by neurosurgery, Dr. Mahajan, who recommended Radiation Oncology consultation. She will follow up with Dr. Casey as outpatient after the biopsy report. The patient was found to have large right lower lobe mass. She underwent bronchoscopy that was nondiagnostic. She later underwent transcutaneous biopsy. She developed pneumothorax after the biopsy requiring right-sided chest tube placement. Chest tube was removed on the day of discharge. The patient has been cleared by Pulmonary for discharge. She was also evaluated by Oncology Service. She will continue dexamethasone as outpatient. She was advised to follow up with the above consultants. She understands the above plan of care. FINAL DIAGNOSES: 1. Right-sided weakness secondary to brain metastasis with vasogenic edema. 2. Lung mass with suspected lung malignancy. Status post non-diagnostic bronchoscopy on the 13 of September. She also underwent CT-guided lung biopsy on the 18 of September. 3. Iatrogenic pneumothorax, resolved after chest tube placement. 4. Chronic alcoholism. The patient was counseled. 5. Tobacco dependence. 6. Cannabis abuse. 7. Anxiety. Time coordinating the discharge of this patient was 38 minutes. Job ID: [id number]
== END 2019-09-19 17:42 | disposition home or self-care (01) | DRG 54 ==
LOC: ERS 14:35 → 2SE 19:40 → ONC 09-14 00:08
PROVIDERS: ADMIT Internal Medicine; ATTEND Internal Medicine
PROC: 0B9F8ZX Drainage of Right Lower Lung Lobe, Via Natural or Artificial Opening Endoscopic, Diagnostic (ICD-10-PCS; principal; 2019-09-13)
PROC: 0BDF8ZX Extraction of Right Lower Lung Lobe, Via Natural or Artificial Opening Endoscopic, Diagnostic (ICD-10-PCS; 2019-09-13)
PROC: 0W9930Z Drainage of Right Pleural Cavity with Drainage Device, Percutaneous Approach (ICD-10-PCS; 2019-09-18)
PROC: 0BBF3ZX Excision of Right Lower Lung Lobe, Percutaneous Approach, Diagnostic (ICD-10-PCS; 2019-09-18)
DX: C79.31 Secondary malignant neoplasm of brain (principal); G93.6 Cerebral edema; J96.01 Acute respiratory failure with hypoxia; C34.31 Malignant neoplasm of lower lobe, right bronchus or lung; J95.811 Postprocedural pneumothorax; F10.20 Alcohol dependence, uncomplicated; F41.9 Anxiety disorder, unspecified; F17.210 Nicotine dependence, cigarettes, uncomplicated; F12.10 Cannabis abuse, uncomplicated
CPT/HCPCS: 32405; 36415; 70450; 70553; 71045; 71260; 74177; 77012; 80048; 80053; 81003; 81025; 83735; 84100; 84484; 85025; 85610; 85730; 87070; 87205; 87324; 87449; 88112; 88305; 88333; 88334; 88341; 88342; 93005; 94640; A9579; J1100; J1200; J2250; J2270; J2405; J2704; J3010; J7620; J8540; Q0163; Q9967; S0028

== ENCOUNTER 2019-10-04 09:24 | Outpatient (CLI) | payer OTHER ==
--- NOTE | 2019-10-04 13:18 | PET ---
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 Malignant neoplasm of lower lobe, right bronchus or lung. Malignant neoplasm of brain, unspecified TECHNIQUE: PET scanning with CT attenuation correction was performed from the base of the brain to the proximal thighs following the intravenous administration of 10.6 millicuries [id number]. COMPARISON: None. CORRELATION: CT scan of 09/11/2019 and MRI brain of 09/12/2019. FINDINGS: There is increased FDG localization in the peripheral aspect of the right lower lobe lung mass noted on the CT scan with an SUV of 2.5. No delfina hypermetabolism is seen in the neck, chest, axillae, abdomen or pelvis. No hypermetabolic liver, adrenal or skeletal lesions are seen. There is focally intense uptake in the region of the cecum with an SUV of 6.4. There is physiologic activity in the GI and tracts and the visualized portions of the brain. The CT scan used for attenuation correction demonstrates no evidence of pleural effusions or ascites. Calcifications in the pancreas are consistent with chronic pancreatitis. IMPRESSION: Findings are consistent with right lower lobe lung malignancy. No evidence of metastatic disease.
== END 2019-10-04 09:25 | disposition home or self-care (01) ==
LOC: PET 09:24
PROVIDERS: ATTEND Internal Medicine Hematology & Oncology
DX: C34.31 Malignant neoplasm of lower lobe, right bronchus or lung (principal); C71.9 Malignant neoplasm of brain, unspecified
CPT/HCPCS: 78815; A9552

== ENCOUNTER 2019-10-18 13:31 | Day surgery (SDC) | payer MEDICAID ==
[2019-10-18 14:25] LABS: BHCG - Serum Negative (NEGATIVE); Pregs Control Background? CLEAR/WHITE (CLR/WHITE); Pregs Control Bar Appear? YES (CONTROL BAR)
[2019-10-18] MEDS ORDERED: Lidocaine 2% w/Epinephrine 1:200K 20 ML VIAL ONE (16:34)
[2019-10-18] MEDS ORDERED: Bupivacaine 0.25% HCL 30 ML VIAL ONE (16:34)
[2019-10-18] MEDS ORDERED: Fentanyl 100 MCG/2 ML VIAL ONE (16:48)
[2019-10-18] MEDS ORDERED: Midazolam HCl 2 mg/2 ml Vial ONE (16:48)
[2019-10-18] MEDS ORDERED: PROPOFOL 40 ML ONE (16:49)
--- NOTE | 2019-10-18 19:35 | RAD ---
CHEST ONE VIEW: 10/18/19 HISTORY: Heimlich valve tube removal. Evaluate for pneumothorax. Right sided Mediport catheter is present. I do not appreciate any evidence for pneumothorax on this f ilm post tube removal. IMPRESSION: No evidence of pneumothorax. POS: [facility]
--- NOTE | 2019-10-19 12:13 | PDOC.OP ---
Operative Note - Operative Note Operative Note: PROCEDURE: Right internal jugular MediPort placement with ultrasound and fluoroscopic guidance DATE OF PROCEDURE: 10/18/2019 SURGEON: Syed Sheffield M.D. PREOPERATIVE DIAGNOSIS: Adenocarcinoma metastatic to the brain POSTOPERATIVE DIAGNOSIS: Adenocarcinoma metastatic to the brain HISTORY: Patient has been diagnosed with adenocarcinoma in the lung metastatic to the brain, also with increased activity on PET in the cecum. Chemotherapy has been recommended and a Mediport has been requested for this. Patient is a longtime smoker, cachectic with COPD. OPERATIVE PROCEDURE IN DETAIL: After informed consent was obtained and appropriate preoperative antibiotics administered, the patient was taken to the operating room and placed in supine position and monitored anesthesia care was administered. The patient was then placed in Trendelenburg position and the patent compressible right internal jugular vein accessed easily on the first attempt under direct ultrasound guidance with excellent flow of dark venous non- pulsatile blood. A wire threaded easily and was confirmed to be in the compressible vein by ultrasound and with the tip in the superior vena cava by fluoroscopy. Additional local anesthesia was infused to the skin and subcutaneous tissues of the right neck and chest. A skin incision was made on the right chest and a subcutaneous pocket developed inferiorly. A Mediport was obtained and confirmed to fit in the subcutaneous pocket. This was secured inferiorly to the pectoralis fascia with a Prolene suture, which was clamped, but not tied. Mediport tubing was then tunneled from the chest to the right IJ access site subcutaneously. The dilator and sheath were then placed over the wire and the dilator and wire removed leaving the sheath in place. The clamped MediPort tubing was tunneled through the sheath, which was then split and removed leaving the MediPort tubing in place. The tubing was adjusted until the tip was confirmed by fluoroscopy to be in the superior vena cava just above the atrium. The tubing was clamped at the skin level and cut and the tubing secured to the port, which was then placed in the subcutaneous pocket. The previously placed suture was secured and two additional sutures were placed to fix the port in place within the pocket. The port was aspirated with the Carrasquillo needle and had excellent flow of dark venous non-pulsatile blood and easily flushed without resistance. The subcutaneous tissues were closed with a running Monocryl suture, following which the skin was closed with a running subcuticular Monocryl suture. Dermabond dressings were placed. The course of the catheter was confirmed by fluoroscopy to be smooth with the tip appropriately located in the superior vena cava. The patient was taken back to recovery in good condition. Estimated blood loss was minimal. There were no complications. There were no specimens.
== END 2019-10-18 20:10 | disposition home or self-care (01) ==
LOC: SDC 13:31
PROVIDERS: ATTEND Surgery
PROC: 02HV33Z Insertion of Infusion Device into Superior Vena Cava, Percutaneous Approach (ICD-10-PCS; principal; 2019-10-18)
DX: C34.90 Malignant neoplasm of unspecified part of unspecified bronchus or lung (principal); C79.31 Secondary malignant neoplasm of brain; J44.9 Chronic obstructive pulmonary disease, unspecified; F17.210 Nicotine dependence, cigarettes, uncomplicated; F41.9 Anxiety disorder, unspecified; F32.9 Major depressive disorder, single episode, unspecified; Z79.899 Other long term (current) drug therapy
CPT/HCPCS: 36415; 71045; 84703; C1788; J0690; J1642; J2250; J2704; J3010; S0020

== ENCOUNTER 2019-11-05 13:04 | Outpatient (CLI) | payer MEDICAID ==
--- NOTE | 2019-11-05 14:00 | RAD ---
PA AND LATERAL VIEWS CHEST: HISTORY: Dyspnea. Fall. COMPARISON: 10/18/2019. FINDINGS: The right-sided Port-A-Cath remains in place. The heart size is normal. The left lung is clear. Ri ght basilar lung mass is again seen. No pneumothoraces identified. IMPRESSION: No acute process. POS: [facility]
== END 2019-11-05 13:05 | disposition home or self-care (01) ==
LOC: BICRAD 13:04
PROVIDERS: ATTEND Internal Medicine
DX: R06.00 Dyspnea, unspecified (principal)
CPT/HCPCS: 71046

== ENCOUNTER 2019-11-05 13:44 | Emergency (ER) | payer MEDICAID | END 2019-11-05 14:54 | disposition left against medical advice (07) | LOC: ERS 13:44 | DX: Z53.21 Procedure and treatment not carried out due to patient leaving prior to being seen by health care provider (principal) ==

== ENCOUNTER 2019-11-15 08:35 | Day surgery (SDC) | payer MEDICAID ==
[~2019-11-15 08:35] MED LIST changes: +CARBOPLATIN IVPB SCH; +Cyanocobalamin 1000 MCG/ML VIAL SC SCH; -Iopamidol-370 76% 500 ML 1 ML ONE; -Magnevist 469MG/ML 20 ML VIAL ONE; +PEMETREXED IVPB SCH; +Palonosetron HCl 0.25 MG in Sodium Chloride 0.9% 50 ML IVPB SCH; +Pembrolizumab 200 MG in Sodium Chloride 0.9% 250 ML 250 ML IV SCH; +SODIUM CHLORIDE 0.9% IVPB SCH
[2019-11-15] MEDS ORDERED: Sodium Chloride 0.9% 20 ML ONE (09:12)
== END 2019-11-15 15:27 | disposition home or self-care (01) ==
LOC: ONC/OP 08:35
PROVIDERS: ATTEND Internal Medicine Hematology & Oncology
DX: Z51.11 Encounter for antineoplastic chemotherapy (principal); C34.31 Malignant neoplasm of lower lobe, right bronchus or lung
CPT/HCPCS: 36416; 96375; 96413; 96417; J1100; J1642; J2469; J7050; J9045

== ENCOUNTER 2019-11-18 16:33 | Emergency (ER) | payer MEDICAID ==
[2019-11-18] MEDS ORDERED: Lidocaine Viscous Sol 2% 15 ml UD Cup ONE (17:07)
[2019-11-18] MEDS ORDERED: Mag-Al 1200 mg/1200 mg/30 ML UDCUP ONE (17:07)
[2019-11-18] MEDS ORDERED: Fluconazole In NaCl,Iso-Osm 200 MG in Premix Bag 1 BAG IVPB SCH (17:15)
[2019-11-18 17:40] LABS: #Lymphocytes 0.8 thou/uL (1.20-3.40); #Monocytes 0.1 thou/uL (0.11-0.59); #Neutrophils 5.5 thou/uL (1.40-6.50); %Basophils 0.2 % (0.0-1.0); %Eosinophils 0.3 % (0.0-10.0); %Lymphocytes 13.1 % (21.0-51.0); %Monocytes 0.7 % (0.0-10.0); %Neutrophils 85.8 % (42.0-75.0); Hemoglobin 11.4 g/dL (12.0-16.0); Mean Corpuscular HGB CONC 33.4 g/dL (32.0-36.0); Mean Corpuscular Hemoglobin 34.8 pg (27.0-31.0); Platelet Count 295 thou/uL (130-400); RBC Distribution Width 12.7 % (11.5-14.5); Red Blood Cell (RBC) Count 3.27 mill/uL (4.20-5.40); White Blood Cell (WBC) Count 6.4 thou/uL (4.8-10.8)
--- NOTE | 2019-11-18 17:41 | RAD ---
EXAM: Single view of the chest HISTORY: Thrush. Altered mental status. COMPARISON: 09/19/2019 FINDINGS: Single view of the chest shows a normal sized cardiomediastinal silhouette. A right-sided Mediport is seen with its tip in the superior vena cava. There is a large mass in the right lower lobe of the lungs. There appears to be a small right pleural effusion. The bones are unremarkable. IMPRESSION: Large right lower lobe lung mass with adjacent pleural effusion.
[2019-11-18 17:45] LABS: Base Excess-Venous -3.2 mmol/L (-2.0 to 3.0); Bicarbonate (HCO3v) 21.1 mmol/L (22.0-28.0); CO2 Tension (PvCO2) 34.3 mmHg (40.0-50.0); Calcium, Ionized 1.08 mmol/L (See Comments:); Chloride 104 mmol/L (98-107); Hemoglobin - Calc 11.1 g/dL (12.0-16.0); Potassium 3.3 mmol/L (3.5-5.1); Sodium 138 mmol/L (138-145); T. Carbon Dioxide 22.1 mmol/L (22.0-28.0); vO2 Saturation-calc 80.9 % (60.0-85.0)
[2019-11-18 18:07] LABS: ALT (SGPT) 18 U/L (8-55); AST (SGOT) 22 U/L (5-34); Albumin 2.8 g/dL (3.5-5.0); Alkaline Phosphatase 53 U/L (40-110); Anion Gap 15 mmol/L (10-20); BUN (Urea Nitrogen) 5 mg/dL (7.0-18.7); Bilirubin, Total 0.6 mg/dL (0.2-1.2); Calc. Creatinine Clearance 0 mL/min (70-130); Calcium 7.6 mg/dL (7.8-10.44); Carbon Dioxide 19 mmol/L (22-29); Chloride 106 mmol/L (98-107); Estimated GFR-MDRD Greater than 90; Globulin 2.2 g/dL (2.4-3.5); Glucose 184 mg/dL (70-105); Lipase Less than 4 U/L (8-78); Potassium 3.4 mmol/L (3.5-5.1); Sodium 137 mmol/L (136-145)
== END 2019-11-18 19:05 | disposition home or self-care (01) ==
LOC: ERS 16:33
DX: B37.0 Candidal stomatitis (principal); E86.0 Dehydration; F17.210 Nicotine dependence, cigarettes, uncomplicated
CPT/HCPCS: 36415; 36416; 71045; 82010; 82330; 82803; 83690; 87040; 96365; 96375; J1450; J1642

== ENCOUNTER 2019-11-23 22:20 | Inpatient (IN) | payer MEDICAID ==
[2019-11-23] MEDS ORDERED: Dextrose 50% Abboject 50 ML SYRINGE ONE (22:23)
[2019-11-23] MEDS ORDERED: fentaNYL Citrate/PF 2,000 MCG in Sodium Chloride 0.9% 60 ML IV SCH (22:30)
--- NOTE | 2019-11-23 22:38 | RAD ---
XR Chest 1 View Portable History: Altered mental status Comparison: Radiograph November 18, 2019 Findings: Large right lower lobe mass is again seen. Patient is intubated endotracheal tube tip above the aimee approximately 8 mm. Enteric tube tip below diaphragm although out of field of view. No pneumothorax. Left lung relatively clear. Impression: 1. Similar appearance right lung mass. 2. Endotracheal tube tip above the aimee approximately 8 mm. Consider retracting. 3. Enteric tube tip below diaphragm although out of field of view.
[2019-11-23 22:55] LABS: Bilirubin Negative (Negative); Blood, Urine Negative (Negative); Clarity Clear (Clear); Glucose, Urine (Dipstick) Greater than 1000 mg/dL (Negative); Leukocyte Negative Leu/uL (Negative); Nitrite Negative (Negative); Protein, Urine (Dipstick) 10 mg/dL (Neg-Trace); Urobilinogen Normal mg/dL (Less than 2)
[2019-11-23 22:59] LABS: Acetaminophen Less than 6.0 mcg/mL (10.0-30.0); Alcohol Less than 10 mg/dL (Less than 10); Salicylate Less than 8.0 mg/dL (15.0-30.0)
[2019-11-23 23:01] LABS: Hemoglobin 10.4 g/dL (12.0-16.0); Mean Corpuscular HGB CONC 34.7 g/dL (32.0-36.0); Mean Corpuscular Hemoglobin 35.4 pg (27.0-31.0); RBC Distribution Width 12.7 % (11.5-14.5); Red Blood Cell (RBC) Count 2.94 mill/uL (4.20-5.40)
[2019-11-23 23:06] LABS: ALT (SGPT) 44 U/L (8-55); AST (SGOT) 79 U/L (5-34); Albumin 2.8 g/dL (3.5-5.0); Alkaline Phosphatase 53 U/L (40-110); Anion Gap 14 mmol/L (10-20); BUN (Urea Nitrogen) 6 mg/dL (7.0-18.7); Bilirubin, Total 0.3 mg/dL (0.2-1.2); Calc. Creatinine Clearance 0 mL/min (70-130); Calcium 7.6 mg/dL (7.8-10.44); Carbon Dioxide 27 mmol/L (22-29); Chloride 100 mmol/L (98-107); Estimated GFR-MDRD Greater than 90; Globulin 1.8 g/dL (2.4-3.5); Glucose 427 mg/dL (70-105); Protein, Total 4.6 g/dL (6.0-8.3); Sodium 138 mmol/L (136-145)
[2019-11-23 23:14] LABS: Potassium 2.9 mmol/L (3.5-5.1)
[2019-11-23 23:18] LABS: Amphetamine Not Detected (NotDetected); Barbiturates Screen Not Detected (NotDetected); Benzodiazepine Screen Detected (NotDetected); Cocaine Metabolite Screen Not Detected (NotDetected); Medtox Control Line Valid? VALID (VALID); Medtox Reader # READER 4; Methadone Not Detected (NotDetected); Methamphetamine Not Detected (NotDetected); Opiate Screen Detected (NotDetected); Oxycodone Screen Not Detected (NotDetected); Phencyclidine (PCP) Not Detected (NotDetected); THC/Cannabinoid Screen Detected (NotDetected); Tricyclic Screen Not Detected (NotDetected)
[2019-11-23 23:21] LABS: CKMB 1.6 ng/mL (0-6.6)
--- NOTE | 2019-11-23 23:23 | CT ---
CT Brain WO Con History: Seizure. Unresponsive Comparison: MRI brain August 2019 Findings: There is fluid within the nasopharynx. Metastatic focus within the left parietal lobe appea rs be relatively similar in size with significant vasogenic edema. The occipital lobe metastatic focus is not well seen. The left cerebral hemisphere mass effect and vasogenic edema has improved from the August 2019 exam. No hemorrhage. No midline shift. No significant mass effect. The calvarium is intact. Impression: 1. No significant interval growth of the metastatic lesions appreciated. 2. No significant mass effect. No acute hemorrhage or territorial infarction. 3. Improved vasogenic edema and mass effect from the August 2019 exam.
[2019-11-23 23:29] LABS: Band 5 % (5-11); Lymphocytes 58 % (21-51); MDiff Complete? YES; Mean Platelet Volume 7.2 fL (7.4-10.4); Monocytes 16 % (0-10); Neutrophil 21 % (42-75); Platelet Count 195 thou/uL (130-400); White Blood Cell (WBC) Count 2.8 thou/uL (4.8-10.8)
[2019-11-23] MEDS ORDERED: levETIRAcetam 1000 MG/100 ML PREMIX BAG ONE (23:49)
[2019-11-24] MEDS ORDERED: Insulin Regular 300 UNITS/3 ML VIAL SC PRN (00:36)
[2019-11-24] MEDS ORDERED: Propofol BOLUS 1,000 MG/100 ML VIAL IV PRN (00:40)
[2019-11-24] MEDS ORDERED: Lorazepam 2 MG/ML VIAL SLOW IVP PRN (00:40)
[2019-11-24] MEDS ORDERED: Fentanyl BOLUS 250 ML IVPB PRN (00:40)
[2019-11-24] MEDS ORDERED: Morphine 2 MG/ML SYRINGE SLOW IVP PRN (00:40)
[2019-11-24] MEDS ORDERED: Propofol 1,000 MG/100 ML VIAL IV PRN (00:40)
[2019-11-24] MEDS ORDERED: DISCONTINUE PREVIOUS NARCOTIC PAIN MEDICATIONS AND BENZODIAZEPINES FS SCH (00:40)
[2019-11-24] MEDS ORDERED: fentaNYL Citrate/PF 2,000 MCG in Sodium Chloride 0.9% 60 ML IV SCH (00:40)
[2019-11-24] MEDS ORDERED: Ventilator Sedation Protocol 1 EACH FS SCH (00:45)
[2019-11-24] MEDS: Sodium Chloride 0.9% 1,000 ML IV SCH ×2 (01:54→08:52)
[2019-11-24] MEDS: Potassium Chloride 40 MEQ in Sodium Chloride 0.9% 250 ML 250 ML IVPB SCH ×2 (01:58→07:31)
[2019-11-24 02:51] LABS: Troponin I 0.128 ng/mL (< 0.028)
--- NOTE | 2019-11-24 04:14 | HP ---
CHIEF COMPLAINT: Found altered. HISTORY OF PRESENT ILLNESS: This patient is a 49-year-old female with a history of lung cancer with brain metastases. The patient was actually admitted here to this facility in August. She has a history of chronic alcoholism and tobacco abuse and presented with right-sided weakness at that time. It had been going on for about 2 months. She had imaging revealing lot of vasogenic edema with an intra-axial mass. MRI confirmed multifocal intracranial intra-axial masses consistent with metastatic disease. Workup revealed a right lower lobe lung mass. A bronchoscopy was performed, which was unrevealing. Subsequently, a CT-guided biopsy was obtained, which revealed poorly-differentiated non-small cell consistent with adenocarcinoma. Unfortunately, she had a pneumothorax requiring chest tube, but once that resolved, the patient was discharged. It appears as though she has been following up with Dr. Casey and Dr. King. She has had a MediPort placed and it appears as though she is likely on Alimta, carboplatin, and Keytruda. On this occasion, the patient was apparently found to be altered and ambulance was called to the scene. The patient was unresponsive. Glucose was 18. She was given D10 and her blood sugar came up to the 40s. She remained somewhat altered at that time. She was gazing rightward and had a brief seizure-like activity. GCS was 3. She was given Ativan, became fully unresponsive and was intubated and transported to this facility. In the emergency department, the patient was given 1000 mg of Keppra, fentanyl, and dextrose. Her blood sugar subsequently has come up substantially. The patient remains sedated and intubated and is unable to give any additional information. REVIEW OF SYSTEMS: Unobtainable given her intubated and sedated status. PAST MEDICAL HISTORY: From the patient's electronic health record, it appears her history includes chronic alcoholism, alcoholic pancreatitis, anxiety as well as the above-mentioned metastatic lung cancer with multiple metastases to the brain. PAST SURGICAL HISTORY: None, although she did have a chest tube placed from her previous admission. SOCIAL HISTORY: The patient quit drinking apparently in August. She had drank 12 packs a day prior to that time and she used daily marijuana. Based on her drug screen, it would appear that she likely continues to do so. ALLERGIES: NONE. CURRENT MEDICATIONS: 1. Viscous lidocaine p.r.n. 2. Tylenol with Codeine Elixir. 3. Nystatin oral. 4. Compazine p.r.n. 5. Folic acid 1 mg daily. 6. Famotidine 20 mg daily. 7. Alprazolam 0.25 mg b.i.d. 8. Dexamethasone 2 mg tapering. 9. Paroxetine 20 mg daily. 10. Thiamine 100 mg daily. 11. Multivitamin one p.o. daily. FAMILY HISTORY: Positive for stroke. PHYSICAL EXAMINATION: VITAL SIGNS: Initial vitals here; BP 114/88, pulse 92, respirations 17, and O2 saturation 99%. Last set of vital signs; BP 85/60, pulse 91, respirations 12, temperature is 98.4, and O2 saturation is 100% on ventilator. GENERAL APPEARANCE: Age-appropriate female, intubated, sedated, unresponsive. HEART: Regular rate and rhythm without murmurs, gallops, or rubs. LUNGS: Clear to auscultation bilaterally with good chest wall expansion and air exchange. ABDOMEN: Soft, nontender, and nondistended. Positive bowel sounds. No masses. No organomegaly. EXTREMITIES: No cyanosis, clubbing, or edema. PSYCH: Sedated. NEURO: Sedated. LABORATORY DATA: White count 2.8, hemoglobin 10, platelets 195, 21% neutrophils, 58% lymphocytes, and 16% monocytes. Sodium 138, potassium 2.9, chloride 100, BUN 6, creatinine 0.53, glucose 427 with subsequent of 275, 221, and 204. Calcium is 7.6. AST 79, ALT 44, alkaline phosphatase 53, troponin 0.099, and albumin 2.8. Urinalysis negative. Drug screen positive for opiates, benzodiazepines, and cannabis. IMAGING DATA: Chest x-ray; right lung mass, unchanged. No acute findings. CT brain; no significant interval growth of the metastatic lesions is appreciated. No significant mass effect. Improved vasogenic edema and mass effect. ASSESSMENT AND PLAN: 1. Seizure. It is unclear if this patient has a seizure related to her brain metastases or if this was a hypoglycemic seizure. She has been loaded with Keppra. We will continue on IV Keppra. Consult Neurology and Neurosurgery. 2. Metastatic lesions to the brain. We will give IV dexamethasone. Consult Neurosurgery. 3. Intubation for airway protection as the patient was unresponsive. Case discussed with Dr. Guevara. We will keep her sedated and ventilated tonight with propofol sedation. 4. Stage IV metastatic lung cancer with brain metastases, on apparently Alimta, carboplatin, and Keytruda. 5. Severe hypokalemia. Replete with IV. 6. Hypoglycemia. Etiology of the hypoglycemia at this time is unclear. We will continue to monitor blood sugars closely. 7. Chronic marijuana daily usage. 8. History of alcoholism. The patient has apparently been off alcohol for about four months and likely at low risk for withdrawal at this time. Job ID: [id number]
[2019-11-24 06:07] LABS: Troponin I 0.156 ng/mL (< 0.028)
[2019-11-24] MEDS: Dexamethasone 4 mg/ml Vial SLOW IVP SCH ×2 (08:33→20:18)
[2019-11-24] MEDS: Enoxaparin Sodium 40 MG/0.4 ML SYRINGE SC SCH (08:34)
[2019-11-24] MEDS: Famotidine/PF 20 mg/2ml Vial SLOW IVP SCH ×2 (08:37→20:18)
[2019-11-24] MEDS ORDERED: FLU VACC QS2019-20(6MOS UP)/PF 60 MCG/0.5 ML SYRINGE IM ONE (09:00)
[2019-11-24] MEDS ORDERED: Prevnar 13-Val Conj/PF 0.5 ML SYRINGE IM ONE (09:00)
--- NOTE | 2019-11-24 10:59 | CON ---
DATE OF TELEMEDICINE CONSULTATION: 11-24-2019 CHIEF COMPLAINT: Seizures. HISTORY OF PRESENT ILLNESS: The patient is unable to give any medical history. History was obtained via the patient's chart, and due to COVID-[address] in place. At this time, the patient is admitted with acute alteration in her level of consciousness following a seizure at home. During EMS transit, she was given Ativan and she was intubated as well. Her Blair Coma Scale was 3 and her glucose was 18 with EMS. She was given D10. Her blood sugar came up to 40, and she continued to have altered mental status and gaze deviation to the right. Her blood sugar subsequently normalized. The patient is now in the ICU and is intubated. The patient has history of chronic alcoholism, tobacco use, and has history of lung cancer along with which is non-small cell, poorly differentiated adenocarcinoma. The patient also has intra-axial multifocal intracranial masses in the parietal and occipital regions consistent with metastatic lesions. Her MRI from August was reviewed, and the brain MRI from September 27, 2019, showed enhancing masses in the left cerebral hemisphere in the parietal lobe region as well as occipital lobe region. She had vasogenic edema as well. She is currently on fentanyl which was stopped last night, and propofol was written for as needed, if she does not achieve the sedation. She has also received Keppra in the ER last night, and she is currently on 500 mg twice daily. She did receive 1 g Keppra yesterday on arrival. She is off sedation, and per nursing staff this morning, she did have some withdrawal response. PAST MEDICAL HISTORY: As noted. She has lung cancer. She received a MediPort placement. Also includes anxiety disorder, chronic alcoholism, alcoholic pancreatitis along with a metastatic adenocarcinoma. MEDICATIONS: She is on Alimta, carboplatin, and Keytruda. I am trying to obtain her most recent chart. Per chart, she is on various medications including Tylenol, nystatin, Compazine, folic acid, famotidine, alprazolam, dexamethasone, paroxetine, thiamine, and multivitamin. FAMILY HISTORY: Listed as being positive for stroke. PAST SURGICAL HISTORY: She had a chest tube placement during her prior admission in August and September. SOCIAL HISTORY: She quit drinking in August. She used to drink 12 packs a day prior to that, and used marijuana on a daily basis. CURRENT LABORATORY WORKUP: White count 2.8, hemoglobin 10.4, hematocrit 29.9, platelet count 195. Urine toxicology screen is positive for opiates, benzos, and cannabinoids. Chemistry; sodium 138, potassium 2.9 being corrected, chloride 100, bicarb 27, BUN 6, creatinine 0.53, glucose 427. Her alkaline phosphatase 53, AST 79, ALT 44, total bilirubin 0.3, albumin 2.8, globulin 1.8, serum total protein 4.6. IMAGING STUDIES: Her CT of the head was completed, and CT head report from yesterday showed no significant interval growth of the metastatic lesions is appreciated. No significant mass effect. No acute hemorrhage or territorial infarction. Improved vasogenic edema and mass effect from August 2019 exam. She has a left parietal lobe and occipital lobe metastatic focus. REVIEW OF SYSTEMS: Unable to obtain. PHYSICAL EXAMINATION: VITAL SIGNS: Blood pressure 109/76, pulse rate 89. She is on vent. GENERAL APPEARANCE: Well-built, well-nourished lady, who is intubated and appears to be comfortable. CHEST: Clear vesicular breathing. CARDIOVASCULAR: S1 and S2 heard. ABDOMEN: Soft. NEUROLOGICAL: Higher intellectual functions, she has some spontaneous movements of the left fingers, hand, and her toes bilaterally. With deep stimulation, she does have spontaneous movement limited to the distal extremities only. With stimulus , she does withdraw more so on the right compared to the left. Pupils 3 mm, reactive to light. During the exam, at one point, she had deviation of the left eye medially while the right eye remained in the midline and I was transient. No facial asymmetry noted. Gag and cough present. Motor exam, mild withdrawal to stimuli only in the distal extremities. Deep tendon reflexes 2+ throughout. Sensory, cerebellar unable to examine. IMPRESSION: The patient is a 49-year-old woman with history of non-small cell adenocarcinoma with brain metastasis. Based on the evaluation of her chart, it seems to me that she is using opiates and marijuana likely for pain. At this time, she was on chemotherapy and she comes in with either hypoglycemic events or postictal drowsiness secondary to a seizure. At this time, her examination shows very minimal movement throughout with stimulation and slight gaze deviation, which was transient. I do think she likely has both hypoglycemic event along with a seizure, likely secondary to hypoglycemia or her brain metastasis. TREATMENT RECOMMENDATIONS: 1. Please increase Keppra to 750 mg b.i.d. for suspected subclinical seizures. 2. Please obtain EEG and MRI of the brain. Consults are in place, I understand for Neurosurgery and Pulmonology. I am hoping they can perform Gamma Knife surgery for her lesion. She will also need her oncologist to review care plan. We will continue to follow the patient. Please note that this consultation was conducted via telemedicine. Job ID: [id number] MTDD
--- NOTE | 2019-11-24 11:58 | PRG ---
DATE OF SERVICE: 11/24/2019 This is a 30-minute initial visit note, in which 30 minutes were spent reviewing the imaging record, evaluation, and examination of patient and formulation of plan. Greater than 50% time was spent in counseling on Sarah Valera. Ms. Valera is a 49-year-old woman with multiple medical comorbidities. In particular, she has intracranial metastases and has been initiated on chemotherapy. The notes from the chart already. Review of head CT after presentation due to unresponsiveness demonstrates improvement in the vasogenic edema related to her tumor burden. Again, likely result of chemotherapy. This is compared to a prior MRI just a few months ago when she presented unresponsive. The concern was her glucose level was 20 or was approximately 20. It certainly lead to altered mental status and declining neurologic exam. She was initiated on levetiracetam prophylactically as well given her intracranial metastases and vasogenic edema. This morning, she withdraws weakly in her extremities. Her pupils are equal, round, and reactive to 3 to 2 mm to light. She is intubated and stares a bit in her face with grimacing to noxious stimuli, that is all that I can get for exam. Our medical colleagues are following along in regard to medical comorbidities in particular regarding her glucose control. There is an MRI of the brain ordered this morning. Frankly, I do not think this is necessary at this time as there is no role for neurosurgical intervention. My suspicion is she presented with hypoglycemic coma and distant on that differential will be seizure and I do not see any reason structurally. I will continue to obtain MRI at this point. DIAGNOSES: 1. Hypoglycemic coma. 2. Intracranial metastases. 3. Possible seizure secondary to #2. Job ID: [id number]
[2019-11-24] MEDS ORDERED: Calcium Gluc 4.6 MEQ/10 ML (100 MG/ML) SLOW IVP SCH (15:13)
[2019-11-24] MEDS ORDERED: Sodium Chloride 0.9% 1,000 ML IV SCH (15:15)
--- NOTE | 2019-11-24 15:41 | PDOC.HOSPP ---
- Subjective Encounter Date: 11/24/19 Encounter Time: 15:05 Subjective: f/u for resp failure, encephalopathy due to hypoglycemia and lung CA with brain metastasis. Remains on [facility] ventilation and sedate. No recurrent seizure activity reported. - Objective Vital Signs & Weight: Vital Signs (12 hours) Temp Pulse Resp Pulse Ox 11/24/19 15:08 87 11/24/19 14:00 12 11/24/19 13:09 88 11/24/19 12:00 99.8 F H 13 11/24/19 10:41 87 11/24/19 10:00 12 11/24/19 08:00 99.9 F H 12 100 11/24/19 07:22 83 11/24/19 07:00 99.9 F H 11/24/19 06:00 12 11/24/19 04:00 99.8 F H 14 Weight Admit Weight 82 lb 3.719 oz Weight 84 lb 14.047 oz Most Recent Monitor Data Heart Rate from ECG 89 NIBP 90/64 NIBP BP-Mean 72 Respiration from ECG 9 SpO2 96 I&O: 11/23/19 11/24/19 11/25/19 06:59 06:59 06:59 Intake Total 563 Output Total 155 100 Balance 408 -100 Result Diagrams: 11/23/19 22:30 11/23/19 22:30 Additional Labs: Accuchecks 11/24/19 11/24/19 11/24/19 14:10 13:18 10:53 POC Glucose 253 H 243 H 202 H 11/24/19 11/24/19 11/24/19 08:12 06:02 03:56 POC Glucose 179 H 141 H 123 H 11/24/19 11/24/19 11/23/19 01:49 00:55 23:39 POC Glucose 194 H 204 H 221 H 11/23/19 11/23/19 22:54 22:26 POC Glucose 275 H 48 L* Laboratory Tests 11/23/19 11/23/19 11/23/19 22:26 22:30 22:30 POC Glucose 48 L* Troponin I 0.099 H Urine Opiates Screen U Benzodiazepines Scrn U Cannabinoids Screen Plasma Alcohol Less than 10 11/23/19 11/24/19 11/24/19 22:40 02:25 05:34 POC Glucose Troponin I 0.128 H 0.156 H Urine Opiates Screen Detected H U Benzodiazepines Scrn Detected H U Cannabinoids Screen Detected H Plasma Alcohol Radiology Reviewed by me: Yes (CT brain - L parietal/occipital lobe neoplasms with decreased edema) EKG Reviewed by me: Yes (Tele - SR) Hospitalist ROS - Medication Medications: Active Medications Generic Name Dose Route Start Last Admin Trade Name Freq PRN Reason Stop Dose Admin Dexamethasone 4 mg 11/24/19 09:00 11/24/19 08:33 Decadron SLOW IVP 4 mg BID JAMARCUS Administration Enoxaparin Sodium 40 mg 11/24/19 09:00 11/24/19 08:34 Lovenox SC 40 mg 0900 JAMARCUS Administration Famotidine 20 mg 11/24/19 09:00 11/24/19 08:37 Pepcid SLOW IVP 20 mg Q12HR JAMARCUS Administration - Exam General - other findings: sedate on mech vent Eye: anicteric sclera ENT: normocephalic atraumatic, no oropharyngeal lesions ENT - other findings: ETT in place Neck: supple, symmetric, no JVD, no thyromegaly Heart: RRR, no murmur, no gallops, no rubs, normal peripheral pulses Heart - other findings: S1, S2 Respiratory: CTAB, no wheezes, no rales, no ronchi, normal chest expansion Gastrointestinal: soft, non-tender, non-distended, normal bowel sounds, no palpable masses Extremities: no cyanosis, no clubbing, no edema Skin: normal turgor, no lesions Neurological - other findings: sedate on mech ventilation Psychiatric: somnolent, lethargic Hosp A/P (1) Seizure Code(s): R56.9 - UNSPECIFIED CONVULSIONS Status: Acute Plan: Likely multifactorial process, continue Keppra 750mg IV BID, Ativan PRN (2) Acute metabolic encephalopathy Code(s): G93.41 - METABOLIC ENCEPHALOPATHY Status: Acute Plan: Likely hypoglycemic induced, monitor mental status clinically after titrating sedation (3) Acute respiratory failure with hypoxia Code(s): J96.01 - ACUTE RESPIRATORY FAILURE WITH HYPOXIA Status: Acute Plan: Continue mech ventilation, wean as clinically indicated (4) Metastatic lung carcinoma Code(s): C78.00 - SECONDARY MALIGNANT NEOPLASM OF UNSPECIFIED LUNG Status: Chronic Plan: Supportive mgmt, outpt medical oncology follow up (5) Brain neoplasm malignant Code(s): C71.9 - MALIGNANT NEOPLASM OF BRAIN, UNSPECIFIED Status: Chronic Plan: Continue Dexamethasone, MRI brain pending, no acute surgical intervention per Neurosurgery team (6) Marijuana abuse Code(s): F12.10 - CANNABIS ABUSE, UNCOMPLICATED Status: Chronic (7) Hypoglycemia Code(s): E16.2 - HYPOGLYCEMIA, UNSPECIFIED Status: Acute Plan: Resolving, serial Accuchecks (8) Hypokalemia Code(s): E87.6 - HYPOKALEMIA Status: Acute Plan: KCL supplementation with CCU electrolyte replacement protocol - Plan respiratory therapy, DVT proph w/SCDs Continue critical support Wean mech ventiliation per protocol Continue Dexamethasone IV MRI brain pending Continue Keppra IV AM lab: CMP, CBC, Mg++, PO3
[2019-11-24] MEDS ORDERED: Dextrose 50% Abboject 50 ML SYRINGE IVP PRN (15:49)
[2019-11-24] MEDS ORDERED: Dextrose 5% in Water 1,000 ML IV PRN (15:49)
[2019-11-24] MEDS: Insulin Regular 300 UNITS/3 ML VIAL SC PRN (17:46)
[2019-11-25] MEDS: Insulin Regular 300 UNITS/3 ML VIAL SC PRN ×3 (04:05→20:57)
[2019-11-25 04:36] LABS: Phosphorus 2.3 mg/dL (2.3-4.7)
[2019-11-25 04:38] LABS: Band 4 % (5-11); Hemoglobin 11.4 g/dL (12.0-16.0); Lymphocytes 28 % (21-51); MDiff Complete? YES; Mean Corpuscular HGB CONC 33.8 g/dL (32.0-36.0); Mean Corpuscular Hemoglobin 34.8 pg (27.0-31.0); Mean Platelet Volume 7.5 fL (7.4-10.4); Monocytes 4 % (0-10); Neutrophil 64 % (42-75); Platelet Count 233 thou/uL (130-400); Red Blood Cell (RBC) Count 3.26 mill/uL (4.20-5.40); White Blood Cell (WBC) Count 3.9 thou/uL (4.8-10.8)
[2019-11-25 05:14] LABS: ALT (SGPT) 51 U/L (8-55); AST (SGOT) 44 U/L (5-34); Albumin 2.8 g/dL (3.5-5.0); Alkaline Phosphatase 75 U/L (40-110); Anion Gap 18 mmol/L (10-20); BUN (Urea Nitrogen) 9 mg/dL (7.0-18.7); Bilirubin, Total 0.5 mg/dL (0.2-1.2); Calc. Creatinine Clearance 75 mL/min (70-130); Calcium 8.6 mg/dL (7.8-10.44); Carbon Dioxide 20 mmol/L (22-29); Chloride 106 mmol/L (98-107); Estimated GFR-MDRD Greater than 90; Globulin 2.5 g/dL (2.4-3.5); Glucose 267 mg/dL (70-105); Magnesium 1.9 mg/dL (1.6-2.6); Potassium 4.8 mmol/L (3.5-5.1); Protein, Total 5.3 g/dL (6.0-8.3); Sodium 139 mmol/L (136-145)
[2019-11-25] MEDS: Dexamethasone 4 mg/ml Vial SLOW IVP SCH ×2 (08:52→20:50)
[2019-11-25] MEDS: Enoxaparin Sodium 40 MG/0.4 ML SYRINGE SC SCH (08:52)
[2019-11-25] MEDS: Famotidine/PF 20 mg/2ml Vial SLOW IVP SCH ×2 (08:54→20:50)
--- NOTE | 2019-11-25 10:06 | CON ---
DATE OF CONSULTATION: 11/24/2019 SERVICE: Pulmonary Medicine. REASON FOR CONSULTATION: ICU patient. HISTORY OF PRESENT ILLNESS: The patient is a 49-year-old unfortunate white female with past medical history significant for widely metastatic process. She has brain metastases. Ultimately, she was in her usual state of health when she was seen sleeping by her . He did not think much of it, but he did some yard work and when we came back in, once again, she was sleeping. At this point, he tried to wake her up, but she was difficult to arouse. As such, EMS Services were contacted. She had some seizure-like activity that was witnessed, and a blood sugar that was extraordinarily low. The blood sugar was fixed. That being said, she remains hypersomnolent. She has been on antiseizure medication. Overnight, there were no significant events, but she did get intubated in order to protect her airway. She cannot provide any additional elements of the history. Because of a little bit of agitation, she got a dose of Ativan last night. Since then, she has been quite sleepy. Since this morning, she has had a sedation holiday. PAST MEDICAL HISTORY: 1. Lung cancer, widely metastatic with metastases to the brain. 2. Seizure disorder secondary to lung cancer. 3. Chronic alcoholism. 4. History of pancreatitis. 5. Anxiety disorder. PAST SURGICAL HISTORY: 1. Chest x-ray on the right. 2. CT-guided biopsy. 3. MediPort placement. SOCIAL HISTORY: She indicates she discontinue drinking alcohol. She has use of marijuana. She denies any current tobacco use. ALLERGIES: NO KNOWN DRUG ALLERGIES. REVIEW OF SYSTEMS: This cannot be obtained as the patient is currently obtunded. PHYSICAL EXAMINATION: VITAL SIGNS: Afebrile with a T-max of 99.9; pulse 88; blood pressure 86/65; respirations 12; and saturation 100%, currently on 40% FiO2 delivered via ventilator with a PEEP of 5. GENERAL: The patient is intubated. She is under the influence of some sedation. HEENT: Normocephalic and atraumatic. Sclerae are white. Conjunctivae are pink. Oral mucosa is moist without lesions. LUNGS: Decent air entry. No prolonged expiratory phase is present. Dependent crackles are noted. HEART: Normal rate, regular. ABDOMEN: Soft, nontender, and nondistended. Bowel sounds are positive. MUSCULOSKELETAL: No cyanosis or clubbing. There is 1 to 2+ pitting throughout. NEUROLOGIC: Grossly nonfocal. LABORATORY DATA: WBC 2.8, hemoglobin 10.4, and platelets 195,000. Neutrophils are 21% on top of 5% bands. Lymphocytes and monocytes are elevated. Troponin 0.156 , which is gently up-trending. Blood sugar ranges from 141 to 253. Potassium 2.9. Basic metabolic profile is otherwise unremarkable. Calcium 7.6. Liver function studies are unremarkable except for an AST-to-ALT ratio that is elevated. Urinalysis is positive for glycosuria. Urine drug screen is positive for opiates, benzodiazepines, and cannabinoids. Alcohol level is negative. Acetaminophen and salicylates are also unremarkable. IMAGING DATA: 1. Chest x-ray demonstrates right lower lobe mass. Port catheter terminates in good position. Endotracheal tube terminates 1 cm above the level of the aimee. There is an enteric catheter coursing midline below the level of the diaphragm. 2. CT of the brain demonstrates no significant interval gross of metastatic lesions. No mass effect or acute hemorrhage is present. Improved vasogenic edema. ASSESSMENT: 1. Acute hypoxic respiratory failure. 2. Seizure. 3. Hypoglycemia. 4. Lung cancer, widely metastatic with central nervous system lesions. DISCUSSION AND PLAN: The patient will remain on mechanical ventilation until she can wake up fully. At this point, her neurologic exam is nonfocal, although she demonstrate diffuse encephalopathy likely associated with recent hypoglycemic insult. She is withdrawing appropriately in all 4 extremities, but she is not following any commands. We will give her some more time and hopefully her brain injury if present, we will continue to evolve and improve. Potassium and calcium will be replaced. I will check a phosphorus and magnesium with tomorrow morning 's laboratories. Critical Care will follow. CRITICAL CARE TIME: 30 minutes. Job ID: [id number] MTDD
--- NOTE | 2019-11-25 11:44 | PRG ---
DATE OF SERVICE: 11/25/2019 INTERVAL HISTORY: The patient is doing really well from respiratory standpoint. Breathing comfortably. She is starting to come around from a mentation standpoint albeit slowly. There has been no change overnight otherwise. PHYSICAL EXAMINATION: VITAL SIGNS: Afebrile, pulse 83, blood pressure 98/62, respirations 11, saturation 98%, currently on 21% FiO2 and PEEP of 5. GENERAL: The patient is intubated and encephalopathic. She is on no sedation. HEENT: Normocephalic and atraumatic. Sclerae white. Conjunctivae pink. Oral mucosa is moist without lesions. LUNGS: Decent air entry. Rhonchi are present. No prolonged expiratory phase or wheezing is appreciated. HEART: Normal rate and regular. ABDOMEN: Soft, nontender, nondistended. Bowel sounds are positive. MUSCULOSKELETAL: No cyanosis or clubbing. There is no pitting in the bilateral lower extremities. NEUROLOGIC: She has an upward gaze preference and does not attend, but she does spontaneously open and close her eyes. She is moving all 4 extremities with purpose, but not to command. Pupils are equal, round, and reactive, and she is comfortably overbreathing the ventilator and demonstrates a very good cough with deep suctioning. LABORATORY DATA: WBC 3.9, hemoglobin 11.4, platelets 233,000. Basic metabolic profile and liver function studies are essentially unremarkable. Phosphorus 2.3. Magnesium 1.9. Urinalysis is only positive for glycosuria. ASSESSMENT: 1. Acute hypoxic respiratory failure, resolved. 2. Seizure. 3. Hypoglycemia. 4. Lung cancer, widely metastatic with SHOESHINER lesions. 5. Anoxic brain injury, likely secondary to prolonged hypoglycemia. DISCUSSION AND PLAN: The patient's neurologic exam is improving, slowly. We will give her a sedation holiday for the next 48 hours. Hopefully, she will continue to make some progress neurologically. If she does not, we will discuss the course of action moving forward with the family. We will continue supportive care. I have initiated tube feeds. Critical Care will continue to follow. Multiple adjustments have been made to the ventilator to turn a little bit more work of breathing over the patient. CRITICAL CARE TIME: 30 minutes. Job ID: [id number] MTDD
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
[2019-11-25] MEDS: Sodium Chloride 0.9% 1,000 ML IV SCH (14:38)
--- NOTE | 2019-11-25 17:32 | PRG ---
DATE OF TELEMEDICINE SERVICE: 11/25/2019 CHIEF COMPLAINT: Seizure disorder and hypoglycemic encephalopathy. INTERVAL HISTORY: Since yesterday, the patient has been waking up more and the plan is to extubate her tomorrow. At this time, no further seizures are reported. LABORATORY WORKUP: White count 3.9, hemoglobin 11.4, hematocrit 33.6, platelet count 233. Chemistry; sodium 139, potassium 4.8, chloride 106, bicarb 20, BUN 9 , creatinine 0.56, glucose 267. Liver functions within normal limits. Urine glucose is greater than 1000 on admission. Urine tox screen positive for opiates, benzos, and cannabinoids. The patient is currently waiting on MRI of the brain. OBJECTIVE: VITAL SIGNS: The patient is still on the vent. Temperature was 99 degrees, blood pressure 103/66, pulse rate is 80. The patient is on the vent. GENERAL APPEARANCE: Well-built, well-nourished lady, who is lying in bed and she has spontaneous movements. NEUROLOGIC: Cranial nerves; pupils 2 mm and she still has esotropia of the left eye medially, which is likely congenital and long-term and not associated with the current incident or indicative of seizures. The patient does look around. Pupils are 2 mm. Motor examination; she does move all her extremities spontaneously but not to command. IMPRESSION: The patient is a 49-year-old lady with hypoglycemic encephalopathy in association with a seizure. The seizure could be likely secondary to hypoglycemia itself. Her hypoglycemia is currently corrected. She is still encephalopathic, which may take a few days to resolve. She is waiting on her MRI scan. At this time, please continue Keppra for seizure disorder. Please request EEG for tomorrow and note if there are any further seizures and call me. Job ID: [id number] [facility]
[2019-11-26] MEDS: Insulin Regular 300 UNITS/3 ML VIAL SC PRN ×5 (00:58→20:30)
[2019-11-26 04:59] LABS: Hemoglobin A1c 13.3 % (4.0-6.0)
[2019-11-26 05:22] LABS: Anion Gap 16 mmol/L (10-20); BUN (Urea Nitrogen) 16 mg/dL (7.0-18.7); Calc. Creatinine Clearance 81 mL/min (70-130); Calcium 8.3 mg/dL (7.8-10.44); Carbon Dioxide 21 mmol/L (22-29); Chloride 107 mmol/L (98-107); Estimated GFR-MDRD Greater than 90; Glucose 201 mg/dL (70-105); Potassium 3.9 mmol/L (3.5-5.1); Sodium 140 mmol/L (136-145)
[2019-11-26] MEDS ORDERED: Sodium Bicarbonate Tab 325 MG TAB PER TUBE PRN (09:31)
[2019-11-26] MEDS ORDERED: Pancrelipase DR 12000 1 CAP PER TUBE PRN (09:31)
[2019-11-26] MEDS: Dexamethasone 4 mg/ml Vial SLOW IVP SCH ×2 (10:00→20:30)
[2019-11-26] MEDS: Enoxaparin Sodium 40 MG/0.4 ML SYRINGE SC SCH (10:00)
[2019-11-26] MEDS: Famotidine/PF 20 mg/2ml Vial SLOW IVP SCH ×2 (10:00→20:30)
[2019-11-26] MEDS: Sodium Chloride 0.9% 1,000 ML IV SCH ×2 (11:17→18:35)
[2019-11-26] MEDS ORDERED: Sodium Chloride 0.9% 1,000 ML IV SCH (11:43)
--- NOTE | 2019-11-26 11:45 | PDOC.HOSPP ---
- Subjective Encounter Date: 11/26/19 Encounter Time: 11:40 Subjective: f/u for resp failure, seizure with hypoglycemia and encephalopathy. Wakes up to name but not following commands or showing purposeful movement of extremities. Receiving TF's @ 40ml/h. - Objective Vital Signs & Weight: Vital Signs (12 hours) Temp Pulse Resp BP 11/26/19 10:39 98 99/58 L 11/26/19 10:00 13 11/26/19 08:00 13 11/26/19 06:52 72 104/73 11/26/19 06:00 14 11/26/19 04:00 98.4 F 13 11/26/19 02:56 73 11/26/19 02:00 14 11/26/19 00:00 99.1 F 12 Weight Admit Weight 82 lb 3.719 oz Weight 85 lb 5.102 oz Most Recent Monitor Data Heart Rate from ECG 75 NIBP 112/64 NIBP BP-Mean 80 Respiration from ECG 11 SpO2 96 I&O: 11/25/19 11/26/19 11/27/19 06:59 06:59 06:59 Intake Total 760 1897 Output Total 326 304 Balance 434 1593 Result Diagrams: 11/25/19 03:45 11/26/19 04:05 Additional Labs: Accuchecks 11/26/19 11/26/19 11/25/19 04:09 01:01 21:00 POC Glucose 211 H 219 H 177 H 11/25/19 11/25/19 17:17 12:24 POC Glucose 294 H 212 H Laboratory Tests 11/23/19 11/23/19 11/23/19 22:26 22:30 22:30 POC Glucose 48 L* Hemoglobin A1c Troponin I 0.099 H Urine Opiates Screen U Benzodiazepines Scrn U Cannabinoids Screen Plasma Alcohol Less than 10 11/23/19 11/24/19 11/24/19 22:40 02:25 05:34 POC Glucose Hemoglobin A1c Troponin I 0.128 H 0.156 H Urine Opiates Screen Detected H U Benzodiazepines Scrn Detected H U Cannabinoids Screen Detected H Plasma Alcohol 11/26/19 04:05 POC Glucose Hemoglobin A1c 13.3 H Troponin I Urine Opiates Screen U Benzodiazepines Scrn U Cannabinoids Screen Plasma Alcohol EKG Reviewed by me: Yes (Tele - SR) Hospitalist ROS - Medication Medications: Active Medications Generic Name Dose Route Start Last Admin Trade Name Freq PRN Reason Stop Dose Admin Dexamethasone 4 mg 11/24/19 09:00 11/26/19 10:00 Decadron SLOW IVP 4 mg BID JAMARCUS Administration Enoxaparin Sodium 40 mg 11/24/19 09:00 11/26/19 10:00 Lovenox SC 40 mg 0900 JAMARCUS Administration Famotidine 20 mg 11/24/19 09:00 11/26/19 10:00 Pepcid SLOW IVP 20 mg Q12HR JAMARCUS Administration Levetiracetam 750 mg/ Sodium 107.5 mls @ 215 mls/hr 11/24/19 21:00 11/26/19 10:35 Chloride IVPB 107.5 mls BID JAMARCUS Administration Sodium Chloride 1,000 mls @ 35 mls/hr 11/25/19 11:10 11/26/19 11:17 Normal Saline 0.9% IV 1,000 mls .Q24H JAMARCUS Administration Insulin Human Regular 0 units 11/24/19 15:49 11/26/19 11:08 Humulin R SC 4 units .MODERATE SLIDING SC PRN Administration MODERATE SLIDING SCALE Protocol - Exam General - other findings: opens eyes to name or contact stimulus Eye: PERRL ENT: normocephalic atraumatic, no oropharyngeal lesions ENT - other findings: ETT in place Neck: supple, symmetric, no JVD, no thyromegaly Heart: RRR, no murmur, no gallops, no rubs, normal peripheral pulses Heart - other findings: S1, S2 Respiratory: CTAB, no wheezes, no rales, no ronchi Gastrointestinal: soft, non-tender, non-distended, normal bowel sounds, no palpable masses Extremities: no cyanosis, 1+ LE edema Skin: normal turgor, no lesions Neurological - other findings: opens eyes to name/contact, no purposeful movement Musculoskeletal: generalized weakness Psychiatric: flat affect, somnolent, lethargic Hosp A/P (1) Acute respiratory failure with hypoxia Code(s): J96.01 - ACUTE RESPIRATORY FAILURE WITH HYPOXIA Status: Acute Plan: Continue mech ventilation, not following commands currently (2) Seizure Code(s): R56.9 - UNSPECIFIED CONVULSIONS Status: Acute Plan: Continue Keppra 750mg IV BID (3) Acute metabolic encephalopathy Code(s): G93.41 - METABOLIC ENCEPHALOPATHY Status: Acute Plan: Persistent, likely multifactorial process, limit sedation and pain meds, Dexamethasone IV, consider repeat CT brain, ? anoxic/hypoxic injury (4) Metastatic lung carcinoma Code(s): C78.00 - SECONDARY MALIGNANT NEOPLASM OF UNSPECIFIED LUNG Status: Chronic (5) Brain neoplasm malignant Code(s): C71.9 - MALIGNANT NEOPLASM OF BRAIN, UNSPECIFIED Status: Chronic (6) Marijuana abuse Code(s): F12.10 - CANNABIS ABUSE, UNCOMPLICATED Status: Chronic (7) Hypoglycemia Code(s): E16.2 - HYPOGLYCEMIA, UNSPECIFIED Status: Acute Plan: Resolved, consistently hyperglycemic currently (8) Hypokalemia Code(s): E87.6 - HYPOKALEMIA Status: Acute Plan: Resolved - Plan social science manager, respiratory therapy, DVT proph w/SCDs Continue critical support Wean mech ventiliation per protocol, not currently following commands Continue Dexamethasone IV Consider repeat CT brain imaging Increase IVF's 100ml/h Continue Keppra IV Nutritional support with Glucerna 1.2 @ 40ml/h AM lab: BMP, CBC
--- NOTE | 2019-11-26 16:40 | PRG ---
DATE OF SERVICE: 11/26/2019 SERVICE: Pulmonary Medicine. INTERVAL HISTORY: The patient is doing fine from a respiratory standpoint. She is on room air. That being said, neurologically, she is not waking up. Otherwise, there has been no change to her condition. PHYSICAL EXAMINATION: VITAL SIGNS: Afebrile, pulse 81, blood pressure 99/57, respirations 14, saturation 94%, currently on 21% FiO2 and a PEEP of 5. GENERAL: The patient is awake and alert, in no apparent distress. LUNGS: Good air entry bilaterally. No prolonged expiratory phase or wheezing is appreciated. HEART: Normal rate, regular. ABDOMEN: Soft, nontender, and nondistended. Bowel sounds positive. MUSCULOSKELETAL: No cyanosis or clubbing. No pitting in the bilateral lower extremities. NEUROLOGIC: The exam is the same. She does not attend. She follows no commands. LABORATORY DATA: WBC 3.9, hemoglobin 11.4, platelets 233,000. Creatinine 0.53 and stable. Basic metabolic profile is otherwise unremarkable. Hemoglobin A1c 13.3. Blood sugar ranges from 211 to 177. ASSESSMENT: 1. Acute hypoxic respiratory failure, resolved. 2. Seizure. 3. Anoxic brain injury, likely secondary to prolonged hypoglycemia and/or seizure. 4. Lung cancer, widely metastatic with central nervous system lesions. DISCUSSION AND PLAN: The patient has suffered a devastating neurologic injury. A robust recovery at this point is quite unlikely. We will get Palliative Care Services involved. If by tomorrow, she is not making any significant neurologic improvement, we will talk to the family about transitioning over to comfort measures. Her brainstem seems to be fully intact, but once again, the patient does not attend , or have any significant purposeful movement. Critical care time: 30 minutes. Job ID: [id number] MTDD
--- NOTE | 2019-11-26 17:08 | PDOC.PALCO ---
Palliative Care Consult - Consult Details Requesting Physician: Dr rosen Reason for Consult: goals of care, assistance with communication prognosis/ disease Family Members Present: Mother/son via phone - Pertinent HPI 49 year old female with known history of lung cancer with metastasis to the brain. Initial presentation to [facility] in August related to right sided weakness in which evaluation revealed the lung cancer and brain mass. As per mother patient recently had a successful initiation with chemo by Dr King. Patient was found unresponsive by her significant other and ems was called, blood glucose of 18, given D10, experienced seizure activity, intubated en route to the emergency room. Subsequent admission to the CCU for further management. - Social History Alcohol Use: heavy Drug Use History: marijuana Living Situation: with partner - Medications MAR Reviewed: Yes - Allergies Allergies/Adverse Reactions: Allergies Allergy/AdvReac Type Severity Reaction Status Date / Time No Known Allergies Allergy Verified 09/12/19 06:25 - Subjective Opens eyes, but does not meet gaze. No purposeful response. - ROS Non Response: due to mental status - Objective Vital Signs: Vital Signs - Most Recent Temp Pulse Resp BP Pulse Ox 98.4 F 86 13 100/63 98 11/26/19 12:00 11/26/19 14:19 11/26/19 16:00 11/26/19 14:19 11/26/19 08:00 Palliative Performance Scale: 20 - Physical Exam Constitutional: encephalitic, ill appearing HEENT: moist MMs, sclera anicteric Respiratory: no wheezing Deviation from normal: mechanical ventilation Cardiovascular: RRR Gastrointestinal: no distention, positive bowel sounds, incontinent Genitourinary: jauregui catheter Musculoskeletal: no clubbing, pulses present Neurology: non-focal Skin: cap refill <2 seconds, no rash Deviation from normal: encephalopathic - Problem List (1) Palliative care encounter Code(s): Z51.5 - ENCOUNTER FOR PALLIATIVE CARE Current Visit: Yes Status: Acute (2) Acute metabolic encephalopathy Code(s): G93.41 - METABOLIC ENCEPHALOPATHY Current Visit: Yes Status: Acute (3) Acute respiratory failure with hypoxia Code(s): J96.01 - ACUTE RESPIRATORY FAILURE WITH HYPOXIA Current Visit: Yes Status: Acute (4) Brain neoplasm malignant Code(s): C71.9 - MALIGNANT NEOPLASM OF BRAIN, UNSPECIFIED Current Visit: Yes Status: Chronic (5) Metastatic lung carcinoma Code(s): C78.00 - SECONDARY MALIGNANT NEOPLASM OF UNSPECIFIED LUNG Current Visit: Yes Status: Chronic - Plan/Recommendations Plan: Assessed patient and reviewed plan with Ximena AUGUSTIN caring for patient. Hopeful extubation, will communicate with family and introduce palliative care. Await to see how the patient proceeds the next 24 hours and follow up to further discuss goals of care with family, considering meaningful recovery paired with lung cancer, metastatic disease to the brain and potential for recent hypoxic injury. Will follow up with pulmonology/oncology/and hospitalist prior to communicating with family further in relation to specifics of goal of care. Maria Elena Duffy [phone] (Significant other) Joan August [phone] (Mother) Waqas Barnes Jr [phone] (son) [50] minutes spent on this encounter with >50% of the time in counseling and coordination of care. Thank you for this very appropriate consult.
[2019-11-27 04:47] LABS: BUN (Urea Nitrogen) 24 mg/dL (7.0-18.7); Calc. Creatinine Clearance 87 mL/min (70-130); Calcium 8.2 mg/dL (7.8-10.44); Carbon Dioxide 21 mmol/L (22-29); Chloride 110 mmol/L (98-107); Estimated GFR-MDRD Greater than 90; Glucose 208 mg/dL (70-105); Sodium 142 mmol/L (136-145)
[2019-11-27 05:21] LABS: Anion Gap 15 mmol/L (10-20)
[2019-11-27] MEDS: Insulin Regular 300 UNITS/3 ML VIAL SC PRN ×4 (06:02→23:52)
[2019-11-27 06:59] LABS: Band 5 % (5-11); Hemoglobin 10.8 g/dL (12.0-16.0); Lymphocytes 20 % (21-51); MDiff Complete? YES; Mean Corpuscular HGB CONC 34.2 g/dL (32.0-36.0); Mean Corpuscular Hemoglobin 35.4 pg (27.0-31.0); Mean Platelet Volume 7.9 fL (7.4-10.4); Monocytes 10 % (0-10); Neutrophil 65 % (42-75); Platelet Count 145 thou/uL (130-400); RBC Distribution Width 13.9 % (11.5-14.5); Red Blood Cell (RBC) Count 3.06 mill/uL (4.20-5.40); White Blood Cell (WBC) Count 6.7 thou/uL (4.8-10.8)
--- NOTE | 2019-11-27 08:45 | PRG ---
DATE OF SERVICE: 11/27/2019 SERVICE: Pulmonary Medicine. INTERVAL HISTORY: The patient is doing poorly from a neurologic standpoint. She is very slow to recover from a neurologic injury. She cannot provide any additional elements of the history. Nursing reports no overnight events. PHYSICAL EXAMINATION: VITAL SIGNS: Afebrile, pulse 72, blood pressure 120/67, respirations 16, saturation 91%, currently on 21% FiO2 and a PEEP of 5. GENERAL: The patient is intubated. She is on no sedation x3 days. HEENT: Normocephalic and atraumatic. Sclerae white. Conjunctivae pink. Oral mucosa is moist without lesions. LUNGS: Decent air entry. There is no prolonged expiratory phase or wheezing present. No crackles. HEART: Normal rate, regular. ABDOMEN: Soft, nontender, and nondistended. Bowel sounds are positive. MUSCULOSKELETAL: No cyanosis or clubbing. No pitting in bilateral lower extremities. NEUROLOGIC: She withdraws from noxious stimuli in all 4 extremities. Today, she will open her eyes with noxious stimuli, and actually attends. The only thing that is new today is that she does look you in the eyes. ASSESSMENT: 1. Acute hypoxic respiratory failure, resolved. 2. Seizure. 3. Hypoglycemia, prolonged, resulting in anoxic brain injury. 4. 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 DISCUSSION/PLAN: I believe this patient has suffered a devastating neurologic injury. The likelihood that she is going to make a meaningful recovery is quite low. Palliative Care consult has been placed. I do believe that given the patient's multiple comorbidities and severe neurologic injury, it would be reasonable to transition over to comfort care only if that would be consistent with her value structure. Pulmonary will continue to follow while the patient remains in this location. CRITICAL CARE TIME: 30 minutes. Job ID: [id number]
[2019-11-27] MEDS: Enoxaparin Sodium 40 MG/0.4 ML SYRINGE SC SCH (08:58)
[2019-11-27] MEDS: Famotidine 20 MG TAB PER TUBE SCH ×2 (08:58→20:14)
[2019-11-27] MEDS: Dexamethasone 4 mg/ml Vial SLOW IVP SCH ×2 (08:59→20:14)
[2019-11-27] MEDS ORDERED: Atropine Sulfate 1% Ophth Soln 5 ml Bottle PO PRN (11:17)
--- NOTE | 2019-11-27 11:22 | PDOC.PALPN ---
Palliative Progress Note - Subjective eyes open, does not currently track or turn to voice. Mechanical ventilation. - Objective Vital Signs: Vital Signs - Most Recent Temp Pulse Resp BP Pulse Ox 98.8 F 85 10 L 100/63 95 11/27/19 09:00 11/27/19 11:01 11/27/19 10:00 11/26/19 14:19 11/27/19 09:14 - Physical Exam Constitutional: encephalitic, ill appearing, mild distress HEENT: EOMI, moist MMs, sclera anicteric Deviation from normal: copious oral secretions Deviation from normal: mechanical ventilation Cardiovascular: RRR Gastrointestinal: incontinent Genitourinary: jauregui catheter Musculoskeletal: pulses present Neurology: moves all 4 limbs, non-focal Skin: cap refill <2 seconds, no lesions Deviation from normal: encephalopathic - Assessment (1) Palliative care encounter Code(s): Z51.5 - ENCOUNTER FOR PALLIATIVE CARE Current Visit: Yes Status: Acute (2) Acute metabolic encephalopathy Code(s): G93.41 - METABOLIC ENCEPHALOPATHY Current Visit: Yes Status: Acute (3) Acute respiratory failure with hypoxia Code(s): J96.01 - ACUTE RESPIRATORY FAILURE WITH HYPOXIA Current Visit: Yes Status: Acute (4) Brain neoplasm malignant Code(s): C71.9 - MALIGNANT NEOPLASM OF BRAIN, UNSPECIFIED Current Visit: Yes Status: Chronic (5) Metastatic lung carcinoma Code(s): C78.00 - SECONDARY MALIGNANT NEOPLASM OF UNSPECIFIED LUNG Current Visit: Yes Status: Chronic - Plan Plan: Communicated with Dr Guevara and spoke with each family member individually coordinating a family meeting. Meeting held via Zoom with audio and video participation of Joan (patient mom ) Mayo (Significant other of patient) and Waqas (Patient son) reviewed current status of patient and burden of multiple morbidities including metastatic cancer and poor meaningful recovery. Discussed possibility of compassionate extubation. Family wishes to continue with full resuscitative measures today, and will visit with each other then we will gather tomorrow for a family meeting to discuss the Goal of Care for Ms Valera. Therapeutic listening and emotional support offered. Encouraged family to identify any further questions they would like answered and we will revisit them tomorrow. Ariana Torres SOLIDS CONTROL TECHNICIAN also participated with conversation and will follow up tomorrow as well to facilitate continuity of care. [60] minutes spent on this encounter with >50% of the time in counseling and coordination of care. - ROS Non Response: due to endotracheal tube, due to mental status
[2019-11-27] MEDS ORDERED: Scopolamine 1.5 mg/72 hour Patch TD SCH (11:30)
[2019-11-27] MEDS: Hyoscyamine Sulfate SL 0.125 mg Tablet PO PRN (13:57)
--- NOTE | 2019-11-27 14:22 | PDOC.HOSPP ---
- Subjective Encounter Date: 11/27/19 Encounter Time: 14:00 Subjective: f/u for resp failure, seizure, hypoglycemia, encephalopathy with random movements of extremities and opening eyes to name but nothing purposeful and not tracking. Continues with TF's @ 40ml/h and mech ventilation. - Objective Vital Signs & Weight: Vital Signs (12 hours) Temp Pulse Resp Pulse Ox 11/27/19 14:00 23 H 11/27/19 12:00 25 H 11/27/19 11:01 85 11/27/19 10:00 10 L 11/27/19 09:14 13 95 11/27/19 09:00 98.8 F 11/27/19 08:02 72 11/27/19 08:00 12 95 11/27/19 06:00 6 L 11/27/19 04:00 98.9 F 6 L 11/27/19 02:34 67 Weight Admit Weight 82 lb 3.719 oz Weight 86 lb 13.794 oz Most Recent Monitor Data Heart Rate from ECG 76 NIBP 109/66 NIBP BP-Mean 80 Respiration from ECG 19 SpO2 92 I&O: 11/26/19 11/27/19 11/28/19 06:59 06:59 06:59 Intake Total 1897 2598 30 Output Total 304 429 85 Balance 1593 2169 -55 Result Diagrams: 11/27/19 06:14 11/27/19 04:00 Additional Labs: Accuchecks 11/27/19 11/27/19 11/27/19 13:32 09:47 01:15 POC Glucose 240 H 193 H 132 H 11/26/19 11/26/19 20:17 17:31 POC Glucose 220 H 272 H EKG Reviewed by me: Yes (Tele - SR) Hospitalist ROS - Medication Medications: Active Medications Generic Name Dose Route Start Last Admin Trade Name Freq PRN Reason Stop Dose Admin Dexamethasone 4 mg 11/24/19 09:00 11/27/19 08:59 Decadron SLOW IVP 4 mg BID JAMARCUS Administration Enoxaparin Sodium 40 mg 11/24/19 09:00 11/27/19 08:58 Lovenox SC 40 mg 0900 JAMARCUS Administration Famotidine 20 mg 11/27/19 09:00 11/27/19 08:58 Pepcid PER TUBE 20 mg Q12HR JAMARCUS Administration Hyoscyamine Sulfate 0.125 mg 11/27/19 12:39 11/27/19 13:57 Levsin Sl PO 0.125 mg Q4H PRN Administration Secretions Levetiracetam 750 mg/ Sodium 107.5 mls @ 215 mls/hr 11/24/19 21:00 11/27/19 08:58 Chloride IVPB 107.5 mls BID JAMARCUS Administration Sodium Chloride 1,000 mls @ 35 mls/hr 11/26/19 16:24 11/26/19 18:35 Normal Saline 0.9% IV 1,000 mls .Q24H JAMARCUS Administration Insulin Human Regular 0 units 11/24/19 15:49 11/27/19 13:29 Humulin R SC 4 units .MODERATE SLIDING SC PRN Administration MODERATE SLIDING SCALE Protocol Scopolamine 3 mg 11/27/19 11:30 11/27/19 11:50 Transderm Scop TD 3 mg Q3D JAMARCUS Administration - Exam General - other findings: awake, does not track or follow Eye: PERRL, anicteric sclera ENT: normocephalic atraumatic, no oropharyngeal lesions ENT - other findings: ETT in place Neck: supple, symmetric, no JVD, no thyromegaly Heart: RRR, no murmur, no gallops, no rubs, normal peripheral pulses Heart - other findings: S1, S2 Respiratory - other findings: scattered coarse sounds, diminished in bases Gastrointestinal: soft, non-tender, non-distended, normal bowel sounds, no palpable masses Extremities: no cyanosis, 1+ LE edema Skin: normal turgor, no lesions Neurological - other findings: moves all extremities randomly Musculoskeletal: generalized weakness, diffuse muscle atrophy Psychiatric: somnolent, lethargic Hosp A/P (1) Acute respiratory failure with hypoxia Code(s): J96.01 - ACUTE RESPIRATORY FAILURE WITH HYPOXIA Status: Acute Plan: Remains on [facility] ventilation currently 30% FIO2, continue pulmonary supportive mgmt (2) Seizure Code(s): R56.9 - UNSPECIFIED CONVULSIONS Status: Acute Plan: No recurrent seizures, continue Keppra 750mg IV BID (3) Acute metabolic encephalopathy Code(s): G93.41 - METABOLIC ENCEPHALOPATHY Status: Acute Plan: Persistent, ? hypoxic/hypoglycemic etiology (4) Metastatic lung carcinoma Code(s): C78.00 - SECONDARY MALIGNANT NEOPLASM OF UNSPECIFIED LUNG Status: Chronic (5) Brain neoplasm malignant Code(s): C71.9 - MALIGNANT NEOPLASM OF BRAIN, UNSPECIFIED Status: Chronic (6) Marijuana abuse Code(s): F12.10 - CANNABIS ABUSE, UNCOMPLICATED Status: Chronic (7) Hypoglycemia Code(s): E16.2 - HYPOGLYCEMIA, UNSPECIFIED Status: Acute Plan: Resolved currently (8) Hypokalemia Code(s): E87.6 - HYPOKALEMIA Status: Acute Plan: Resolved - Plan social professionals, respiratory therapy, DVT proph w/SCDs Consults: Palliative Care Continue critical support Wean mech ventiliation per protocol, not currently following commands Continue Dexamethasone IV MRI brain if extubated Continue IVF's Continue Keppra IV Nutritional support with Glucerna 1.2 @ 40ml/h ? Palliative/Hospice option AM lab: BMP, CBC
[2019-11-27] MEDS: Sodium Chloride 0.9% 1,000 ML IV SCH (17:04)
[2019-11-28] MEDS: Insulin Regular 300 UNITS/3 ML VIAL SC PRN ×4 (03:59→20:29)
--- NOTE | 2019-11-28 08:23 | PRG ---
DATE OF SERVICE: 11/28/2019 35 minutes critical care time. SUBJECTIVE: The patient remains intubated on mechanical ventilation. There has been no acute changes overnight. OBJECTIVE: VITAL SIGNS: Her temperature is 98.8, pulse 69, blood pressure 120/75, O2 saturation 100%. A 24-hour intake 2339, output 256. HEENT: OG tube in place. NECK: No adenopathy or JVD. LUNGS: Clear anteriorly. CARDIOVASCULAR: S1 and S2, regular without murmur. ABDOMEN: Soft and nontender. EXTREMITIES: No edema. Severe muscle wasting present. LABORATORY DATA: I see no new labs were done today. ASSESSMENT: 1. The patient is presenting with acute respiratory failure secondary to altered mental status and seizures. 2. Seizure disorder secondary to metastatic lung cancer to the brain. 3. Metastatic lung cancer. 4. Hypoglycemia that was prolonged resulting in anoxic brain injury. PLAN: I see two choices, compassionate extubation. The other would be trach, PEG, and senior care placement to live out her final days. Obviously, the trach and PEG would not be the ideal. In the meantime, we are continuing supportive care. Palliative care is apparently having a meeting with the family later today. I will repeat her electrolytes tomorrow. Job ID: [id number]
[2019-11-28] MEDS: Enoxaparin Sodium 40 MG/0.4 ML SYRINGE SC SCH (09:06)
[2019-11-28] MEDS: Dexamethasone 4 mg/ml Vial SLOW IVP SCH ×2 (09:06→20:12)
[2019-11-28] MEDS: Famotidine 20 MG TAB PER TUBE SCH ×2 (09:06→20:12)
--- NOTE | 2019-11-28 12:09 | PDOC.HOSPP ---
- Subjective Encounter Date: 11/28/19 Encounter Time: 12:08 Subjective: intubated, no purposeful responce - Objective Vital Signs & Weight: Vital Signs (12 hours) Temp Pulse Resp BP 11/28/19 10:18 61 101/58 L 11/28/19 10:00 13 11/28/19 08:00 98.9 F 14 11/28/19 07:52 60 99/65 11/28/19 05:55 12 11/28/19 04:00 98.8 F 10 L 11/28/19 02:00 10 L 11/28/19 01:58 64 Weight Admit Weight 82 lb 3.719 oz Weight 90 lb 4.8 oz Most Recent Monitor Data Heart Rate from ECG 76 NIBP 133/77 NIBP BP-Mean 95 Respiration from ECG 20 SpO2 97 I&O: 11/27/19 11/28/19 11/29/19 06:59 06:59 06:59 Intake Total 2598 2339 30 Output Total 429 256 43 Balance 2169 2083 -13 Result Diagrams: 11/27/19 06:14 11/27/19 04:00 Additional Labs: Accuchecks 11/28/19 11/28/19 11/27/19 09:07 04:01 23:56 POC Glucose 160 H 220 H 217 H 11/27/19 11/27/19 11/27/19 20:15 16:57 13:32 POC Glucose 154 H 254 H 240 H 11/27/19 09:47 POC Glucose 193 H Hospitalist ROS - Medication Medications: Active Medications Generic Name Dose Route Start Last Admin Trade Name Freq PRN Reason Stop Dose Admin Dexamethasone 4 mg 11/24/19 09:00 11/28/19 09:06 Decadron SLOW IVP 4 mg BID JAMARCUS Administration Enoxaparin Sodium 40 mg 11/24/19 09:00 11/28/19 09:06 Lovenox SC 40 mg 0900 JAMARCUS Administration Famotidine 20 mg 11/27/19 09:00 11/28/19 09:06 Pepcid PER TUBE 20 mg Q12HR JAMARCUS Administration Hyoscyamine Sulfate 0.125 mg 11/27/19 12:39 11/27/19 13:57 Levsin Sl PO 0.125 mg Q4H PRN Administration Secretions Levetiracetam 750 mg/ Sodium 107.5 mls @ 215 mls/hr 11/24/19 21:00 11/28/19 09:05 Chloride IVPB 107.5 mls BID JAMARCUS Administration Sodium Chloride 1,000 mls @ 35 mls/hr 11/26/19 16:24 11/27/19 17:04 Normal Saline 0.9% IV 1,000 mls .Q24H JAMARCUS Administration Insulin Human Regular 0 units 11/24/19 15:49 11/28/19 09:06 Humulin R SC 2 units .MODERATE SLIDING SC PRN Administration MODERATE SLIDING SCALE Protocol Scopolamine 3 mg 11/27/19 11:30 11/27/19 11:50 Transderm Scop TD 3 mg Q3D JAMARCUS Administration - Exam General - other findings: no purposeful movements Heart: RRR, no murmur Respiratory: CTAB Gastrointestinal: soft, normal bowel sounds Extremities: no edema Hosp A/P (1) Lung cancer metastatic to brain Code(s): C34.90 - MALIGNANT NEOPLASM OF UNSP PART OF UNSP BRONCHUS OR LUNG; C79.31 - SECONDARY MALIGNANT NEOPLASM OF BRAIN Status: Acute (2) Anoxic brain injury Status: Acute (3) Acute respiratory failure with hypoxia Code(s): J96.01 - ACUTE RESPIRATORY FAILURE WITH HYPOXIA Status: Acute (4) Seizure Code(s): R56.9 - UNSPECIFIED CONVULSIONS Status: Acute (5) Marijuana abuse Code(s): F12.10 - CANNABIS ABUSE, UNCOMPLICATED Status: Chronic (6) Tobacco abuse Code(s): Z72.0 - TOBACCO USE Status: Acute (7) Alcohol abuse Code(s): F10.10 - ALCOHOL ABUSE, UNCOMPLICATED Status: Chronic - Plan vent dependent cont tube meds, etc discussion re choices moving forwarn progress- palliative extubation vs trach/ peg
--- NOTE | 2019-11-28 12:41 | PDOC.PALPN ---
Palliative Progress Note - Subjective Mechanical ventilation, opens eyes but does not track. - Objective Vital Signs: Vital Signs - Most Recent Temp Pulse Resp BP Pulse Ox 98.7 F 61 13 101/58 L 99 11/28/19 12:00 11/28/19 10:18 11/28/19 12:00 11/28/19 10:18 11/27/19 20:00 - Physical Exam Constitutional: encephalitic, ill appearing HEENT: EOMI, moist MMs, sclera anicteric Deviation from normal: copious oral secretions Deviation from normal: mechanical ventilation Cardiovascular: RRR Gastrointestinal: incontinent Genitourinary: jauregui catheter (Dark minimal outpur) Musculoskeletal: pulses present Deviation from normal: edema to upper extremities Neurology: non-focal Skin: cap refill <2 seconds, fragile Deviation from normal: encephalopathic - Assessment (1) Palliative care encounter Code(s): Z51.5 - ENCOUNTER FOR PALLIATIVE CARE Current Visit: Yes Status: Acute (2) Acute metabolic encephalopathy Code(s): G93.41 - METABOLIC ENCEPHALOPATHY Current Visit: Yes Status: Acute (3) Acute respiratory failure with hypoxia Code(s): J96.01 - ACUTE RESPIRATORY FAILURE WITH HYPOXIA Current Visit: Yes Status: Acute (4) Anoxic brain injury Current Visit: Yes Status: Acute (5) Lung cancer metastatic to brain Code(s): C34.90 - MALIGNANT NEOPLASM OF UNSP PART OF UNSP BRONCHUS OR LUNG; C79.31 - SECONDARY MALIGNANT NEOPLASM OF BRAIN Current Visit: Yes Status: Acute - Plan Plan: Met via video conference with patient mother Joan and partner Mayo. Dr Villegas present for part of conference as well. Discussed overall poor meaningful recovery. Presented option of trach and PEG verses compassionate extubation. Answered questions, therapeutic listening as well as emotional support offered. Revisited resuscitation status and transition to DNAR. Will monitor secretions after use of levsin, Scopolamine patch already in use. Patient mother Joan to come to the hospital at 2pm to see Sarah and further discuss Goal of Care. [60] minutes spent on this encounter with >50% of the time in counseling and coordination of care. - ROS Non Response: due to endotracheal tube, due to mental status
[2019-11-28] MEDS: Sodium Chloride 0.9% 1,000 ML IV SCH (20:23)
[2019-11-29] MEDS: Insulin Regular 300 UNITS/3 ML VIAL SC PRN (04:18)
[2019-11-29 05:09] LABS: Anion Gap 11 mmol/L (10-20); BUN (Urea Nitrogen) 26 mg/dL (7.0-18.7); Calc. Creatinine Clearance 92 mL/min (70-130); Calcium 8.3 mg/dL (7.8-10.44); Carbon Dioxide 29 mmol/L (22-29); Chloride 104 mmol/L (98-107); Estimated GFR-MDRD Greater than 90; Glucose 168 mg/dL (70-105); Potassium 3.6 mmol/L (3.5-5.1); Sodium 140 mmol/L (136-145)
--- NOTE | 2019-11-29 08:44 | PRG ---
DATE OF SERVICE: 11/29/2019 35 minutes of critical care time. SUBJECTIVE: The patient remains intubated on mechanical ventilation. This morning, I was able to get her to wake up, track with her eyes, follow commands or moving her hands and feet. OBJECTIVE: VITAL SIGNS: Temperature 99.3, pulse 73, blood pressure 105/67, O2 saturation 95%. 24-hour intake 2446, output 386. HEENT: Unremarkable. NECK: No adenopathy or JVD. LUNGS: Clear anteriorly. CARDIAC: S1, S2. Regular. ABDOMEN: Soft. EXTREMITIES: Severe muscle wasting. LABORATORY DATA: Sodium 140, potassium 3.6, chloride 104, CO2 of 29, BUN 26, creatinine 0.5, glucose 168. ASSESSMENT: 1. Lung cancer with metastasis to the brain. 2. Acute on chronic respiratory failure, requiring mechanical ventilation. PLAN: I am weaning her down to CPAP. I actually think she would tolerate extubation. I do want to make it clear with the family about code status before extubating as I would prefer not to reintubate her as her short-term and long-term prognosis are both poor. Job ID: [id number]
[2019-11-29] MEDS: Dexamethasone 4 mg/ml Vial SLOW IVP SCH (09:21)
[2019-11-29] MEDS: Enoxaparin Sodium 40 MG/0.4 ML SYRINGE SC SCH (09:23)
[2019-11-29] MEDS: Hyoscyamine Sulfate SL 0.125 mg Tablet PO PRN (09:26)
[2019-11-29] MEDS: Famotidine 20 MG TAB PER TUBE SCH (09:27)
--- NOTE | 2019-11-29 11:11 | PDOC.HOSPP ---
- Subjective Encounter Date: 11/29/19 Encounter Time: 11:08 Subjective: intubated, unresponsive - Objective Vital Signs & Weight: Vital Signs (12 hours) Temp Pulse Resp BP Pulse Ox 11/29/19 10:59 68 11/29/19 10:00 10 L 11/29/19 08:27 66 11/29/19 08:00 99.3 F 97 11/29/19 07:55 13 11/29/19 06:00 13 11/29/19 05:00 99.8 F H 11/29/19 04:00 13 99 11/29/19 03:00 99.5 F 11/29/19 02:10 63 102/60 11/29/19 02:00 14 11/29/19 01:00 98.9 F 11/29/19 00:00 12 11/28/19 23:43 14 98 Weight Admit Weight 82 lb 3.719 oz Weight 93 lb 0.561 oz Most Recent Monitor Data Heart Rate from ECG 67 NIBP 96/61 NIBP BP-Mean 72 Respiration from ECG 11 SpO2 98 I&O: 11/28/19 11/29/19 11/30/19 06:59 06:59 06:59 Intake Total 2339 2446 120 Output Total 256 386 34 Balance 3 0 86 Result Diagrams: 11/27/19 06:14 11/29/19 04:00 Additional Labs: Accuchecks 11/29/19 11/29/19 11/28/19 07:45 04:13 23:45 POC Glucose 146 H 173 H 140 H 11/28/19 11/28/19 11/28/19 19:28 16:56 12:05 POC Glucose 150 H 223 H 127 H Hospitalist ROS - Medication Medications: Active Medications Generic Name Dose Route Start Last Admin Trade Name Freq PRN Reason Stop Dose Admin Dexamethasone 4 mg 11/24/19 09:00 11/29/19 09:21 Decadron SLOW IVP 4 mg BID JAMARCUS Administration Enoxaparin Sodium 40 mg 11/24/19 09:00 11/29/19 09:23 Lovenox SC 40 mg 0900 JAMARCUS Administration Famotidine 20 mg 11/27/19 09:00 11/29/19 09:27 Pepcid PER TUBE 20 mg Q12HR JAMARCUS Administration Hyoscyamine Sulfate 0.125 mg 11/27/19 12:39 11/29/19 09:26 Levsin Sl PO 0.125 mg Q4H PRN Administration Secretions Levetiracetam 750 mg/ Sodium 107.5 mls @ 215 mls/hr 11/24/19 21:00 11/29/19 09:24 Chloride IVPB 107.5 mls BID JAMARCUS Administration Sodium Chloride 1,000 mls @ 35 mls/hr 11/26/19 16:24 11/28/19 20:23 Normal Saline 0.9% IV 1,000 mls .Q24H JAMARCUS Administration Insulin Human Regular 0 units 11/24/19 15:49 11/29/19 04:18 Humulin R SC 2 units .MODERATE SLIDING SC PRN Administration MODERATE SLIDING SCALE Protocol Scopolamine 3 mg 11/27/19 11:30 11/27/19 11:50 Transderm Scop TD 3 mg Q3D JAMARCUS Administration - Exam General Appearance: NAD Neck: no JVD Heart: RRR, no murmur Respiratory: CTAB Gastrointestinal: soft, normal bowel sounds Extremities: no edema Neurological - other findings: pupils unreactive, pos dolls eyes Hosp A/P (1) Lung cancer metastatic to brain Code(s): C34.90 - MALIGNANT NEOPLASM OF UNSP PART OF UNSP BRONCHUS OR LUNG; C79.31 - SECONDARY MALIGNANT NEOPLASM OF BRAIN Status: Acute (2) Anoxic brain injury Status: Acute (3) Acute respiratory failure with hypoxia Code(s): J96.01 - ACUTE RESPIRATORY FAILURE WITH HYPOXIA Status: Acute (4) Seizure Code(s): R56.9 - UNSPECIFIED CONVULSIONS Status: Acute (5) Marijuana abuse Code(s): F12.10 - CANNABIS ABUSE, UNCOMPLICATED Status: Chronic (6) Tobacco abuse Code(s): Z72.0 - TOBACCO USE Status: Acute (7) Alcohol abuse Code(s): F10.10 - ALCOHOL ABUSE, UNCOMPLICATED Status: Chronic - Plan 20 min with family DNAR- extubate cont iv, nutrition if tolerates extubation , move to medical
[2019-11-29] MEDS ORDERED: Atropine Sulfate 1% Ophth Soln 5 ml Bottle PO PRN (11:16)
[2019-11-29] MEDS ORDERED: Morphine 2 MG/ML SYRINGE SLOW IVP PRN (11:19)
[2019-11-29] MEDS ORDERED: Scopolamine 1.5 mg/72 hour Patch TD SCH (11:30)
[2019-11-29 11:33] VITALS: BMI 17.0
--- NOTE | 2019-11-29 12:14 | PDOC.FMACP ---
Advance Care Planning - Problem (1) Lung cancer metastatic to brain Status: Acute Code(s): C34.90 - MALIGNANT NEOPLASM OF UNSP PART OF UNSP BRONCHUS OR LUNG; C79.31 - SECONDARY MALIGNANT NEOPLASM OF BRAIN (2) Anoxic brain injury Status: Acute (3) Acute respiratory failure with hypoxia Status: Acute Code(s): J96.01 - ACUTE RESPIRATORY FAILURE WITH HYPOXIA (4) Seizure Status: Acute Code(s): R56.9 - UNSPECIFIED CONVULSIONS (5) Marijuana abuse Status: Chronic Code(s): F12.10 - CANNABIS ABUSE, UNCOMPLICATED (6) Tobacco abuse Status: Acute Code(s): Z72.0 - TOBACCO USE (7) Alcohol abuse Status: Chronic Code(s): F10.10 - ALCOHOL ABUSE, UNCOMPLICATED - Note Participants: family, surrogate decision-maker, palliative care Summary: Advanced Care Planning was discussed. The diagnosis, prognosis and goals of care were discussed. Appropriate forms and documentation to accomplish the goals of care were discussed. All questions were answered. The Palliative Care Team will be engaged to assist with completion of any outstanding forms that are needed. 20 min spent face to face. patient will be extubated today
--- NOTE | 2019-11-29 16:08 | PDOC.PALPN ---
Palliative Progress Note - Subjective Intubated, opens eyes. Family at bedside - Objective Vital Signs: Vital Signs - Most Recent Temp Pulse Resp BP Pulse Ox 99.1 F 68 10 L 102/60 79 L 11/29/19 12:00 11/29/19 10:59 11/29/19 10:00 11/29/19 02:10 11/29/19 12:00 - Physical Exam Constitutional: encephalitic, ill appearing HEENT: moist MMs, sclera anicteric Deviation from normal: copious oral secretions Deviation from normal: Mechanical ventilation Cardiovascular: RRR Gastrointestinal: soft, non-tender, no distention, incontinent Genitourinary: jauregui catheter Musculoskeletal: diffuse muscle atrophy Neurology: non-focal Skin: bruising, fragile Deviation from normal: encephalopathic - Assessment (1) Palliative care encounter Code(s): Z51.5 - ENCOUNTER FOR PALLIATIVE CARE Current Visit: Yes Status: Acute (2) Acute metabolic encephalopathy Code(s): G93.41 - METABOLIC ENCEPHALOPATHY Current Visit: Yes Status: Acute (3) Acute respiratory failure with hypoxia Code(s): J96.01 - ACUTE RESPIRATORY FAILURE WITH HYPOXIA Current Visit: Yes Status: Acute (4) Anoxic brain injury Current Visit: Yes Status: Acute (5) Lung cancer metastatic to brain Code(s): C34.90 - MALIGNANT NEOPLASM OF UNSP PART OF UNSP BRONCHUS OR LUNG; C79.31 - SECONDARY MALIGNANT NEOPLASM OF BRAIN Current Visit: Yes Status: Acute - Plan Plan: Met with family this morning, Dr Villegas relayed prognosis and poor meaningful recovery related to hypoxic injury and lung/brain cancer. Patient son, partner and mother are electing to compassionately extubate and transition to comfort. Answered questions and emotional support offered. Ordered Morphine, Ativan for symptoms related to terminal restlessness and shortness of breath. Atropine gtts and scopolamine to mitigate secretions. Spiritual care consult placed, spoke with Father Carlton. Followed up this afternoon, patient to be transferred to the 4th floor and [facility] to evaluate as per family request. [90] minutes spent on this encounter with >50% of the time in counseling and coordination of care. - ROS Non Response: due to endotracheal tube, due to mental status
[2019-11-29 16:48] VITALS: BP 90/58; TEMP 98.7
--- NOTE | 2019-11-29 19:29 | DIS ---
DATE OF ADMISSION: 11/24/2019 DATE OF DISCHARGE: 11/29/2019 PRIMARY CARE PROVIDER: Adeola Corrales. Discharged to inpatient hospice on 11/29/2019. DIAGNOSES: Acute respiratory failure with hypoxia, unspecified convulsions, malignant neoplasm of the lung with metastases to the brain, anoxic brain injury. HOSPITAL COURSE: The patient was admitted to the Hospitalist Service through [facility]. The patient was found with altered mental status, history of lung cancer, brain metastasis, history of chronic alcoholism, and tobacco abuse. program director/music director were called to her home. Blood sugar was 18. She was given D10. Had seizure activity. Blair Coma Scale was 3. She was placed intensive care unit, intubated, ventilated, was loaded with Keppra, given IV dexamethasone. Initial consultation with Dr. Juliann Toussaint, Neurology; Dr. Jose Najera, Neurosurgery; Dr. Rip Guevara, Pulmonary Intensive Care. Dr. Juliann Toussaint recommended increasing the Keppra, obtaining EEG and MRI. Dr. Najera suggested her there was no evidence for surgical intervention, that her altered mental status was due to severe hypoglycemic coma. Initial white count was 2.8, hemoglobin 10.4, platelet count 195,000. Initial potassium 2.9, sodium 138. Initial blood sugar 48, which went to 427 with D50. BUN 6, creatinine 0.53. The patient was maintained on ventilator, seizure medicines, on 11/25/2019, Dr. Toussaint, Neurology. The patient did not improve neurologically. She had unreactive pupils. Positive doll's eyes. She was areflexic with generalized flaccid extremities. She was seen in consultation by Palliative Care. I spent a considerable time this morning in discussing the various options and likelihood of improving with this patient, Dr. Fredrick Hawkins had done the same thing. The family's decision was for elective extubation. The patient was extubated, continued to breathe spontaneously. The family also agreed to hospice care. The patient was discharged this evening to inpatient hospice. She is DNAR, on comfort measures only. Medications per Hospice. No procedures were done. Job ID: [id number]
--- NOTE | 2019-11-30 14:23 | EKG ---
Test Reason : Blood Pressure : / mmHG Vent. Rate : 093 BPM Atrial Rate : 093 BPM P-R Int : 110 ms QRS Dur : 082 ms QT Int : 394 ms P-R-T Axes : 064 066 099 degrees QTc Int : 489 ms Sinus rhythm with short RI Possible Left atrial enlargement Prolonged QT Abnormal ECG Confirmed by ADWOA RIVERA DO ([id number]), newspaper editor LAURA MEYER ([id number]) on 11/30/2019 2:23:23 PM Referred By: Confirmed By:ADWOA RIVERA DO
== END 2019-11-29 18:52 | disposition hospice, inpatient (51) | DRG 640 ==
LOC: ERS 22:20 → CCU 11-24 00:14 → T4-B 11-29 16:22
PROVIDERS: ADMIT Internal Medicine; ATTEND Internal Medicine
PROC: 0BH17EZ Insertion of Endotracheal Airway into Trachea, Via Natural or Artificial Opening (ICD-10-PCS; principal; 2019-11-24)
PROC: 5A1955Z Respiratory Ventilation, Greater than 96 Consecutive Hours (ICD-10-PCS; 2019-11-24)
DX: E15 Nondiabetic hypoglycemic coma (principal); J96.01 Acute respiratory failure with hypoxia; G93.41 Metabolic encephalopathy; C79.31 Secondary malignant neoplasm of brain; C34.31 Malignant neoplasm of lower lobe, right bronchus or lung; K86.0 Alcohol-induced chronic pancreatitis; F10.288 Alcohol dependence with other alcohol-induced disorder; G93.1 Anoxic brain damage, not elsewhere classified; Z51.5 Encounter for palliative care; Z66 Do not resuscitate; R40.2312 Coma scale, best motor response, none, at arrival to emergency department; R40.2112 Coma scale, eyes open, never, at arrival to emergency department; R40.2212 Coma scale, best verbal response, none, at arrival to emergency department; F41.9 Anxiety disorder, unspecified; F17.210 Nicotine dependence, cigarettes, uncomplicated; E87.6 Hypokalemia; F32.9 Major depressive disorder, single episode, unspecified; F12.10 Cannabis abuse, uncomplicated; G40.909 Epilepsy, unspecified, not intractable, without status epilepticus; Z79.899 Other long term (current) drug therapy; Z78.1 Physical restraint status; Z79.52 Long term (current) use of systemic steroids
CPT/HCPCS: 36415; 36416; 51702; 70450; 71045; 80048; 80053; 80306; 80307; 81003; 82553; 83036; 83735; 84100; 84484; 85007; 85025; 85027; 93005; 94002; 94003; 96365; 96366; 96368; 96375; 99292; J1100; J1650; J1815; J1953; J2060; J2270; J3010; J3475; J3480; J3490; J7050; S0028

== ENCOUNTER 2019-11-29 18:56 | Inpatient (IN) | payer OTHER ==
[2019-11-29] MEDS ORDERED: Scopolamine 1.5 mg/72 hour Patch TOP PRN (19:30)
[2019-11-29] MEDS ORDERED: Ondansetron PF 4 MG/2 ML Vial IVP PRN (19:30)
[2019-11-29] MEDS ORDERED: Acetaminophen 650 MG Suppository PR PRN (19:30)
[2019-11-29] MEDS ORDERED: Morphine 2 MG/ML SYRINGE SLOW IVP PRN (19:32)
[2019-11-30] MEDS: Morphine 2 MG/ML SYRINGE SLOW IVP SCH ×5 (00:57→20:38)
[2019-11-30] MEDS: Lorazepam 2 MG/ML VIAL SLOW IVP PRN ×2 (14:22→22:52)
[2019-11-30] MEDS ORDERED: Scopolamine 1.5 mg/72 hour Patch TOP SCH (16:15)
[2019-12-01] MEDS: Morphine 2 MG/ML SYRINGE SLOW IVP SCH ×6 (00:30→20:36)
[2019-12-01] MEDS: Lorazepam 2 MG/ML VIAL SLOW IVP PRN ×2 (03:32→15:51)
[2019-12-02] MEDS: Morphine 2 MG/ML SYRINGE SLOW IVP SCH ×6 (01:08→20:31)
[2019-12-02] MEDS ORDERED: Hyoscyamine Sulfate SL 0.125 mg Tablet SL PRN (10:55)
[2019-12-03] MEDS: Morphine 2 MG/ML SYRINGE SLOW IVP SCH ×6 (00:19→21:04)
[2019-12-03] MEDS: Lorazepam 2 MG/ML VIAL SLOW IVP PRN ×3 (00:20→15:08)
[2019-12-03] MEDS ORDERED: Acetaminophen 650 MG Suppository PR PRN (18:06)
[2019-12-03] MEDS ORDERED: Morphine 2 MG/ML SYRINGE SLOW IVP PRN (18:06)
[2019-12-03] MEDS ORDERED: Lorazepam 2 MG/ML VIAL SLOW IVP PRN (18:06)
[2019-12-03] MEDS ORDERED: Scopolamine 1.5 mg/72 hour Patch TOP PRN (18:06)
[2019-12-03] MEDS ORDERED: Ondansetron PF 4 MG/2 ML Vial IVP PRN (18:06)
[2019-12-03] MEDS ORDERED: Hyoscyamine Sulfate SL 0.125 mg Tablet SL PRN (18:07)
[2019-12-03] MEDS ORDERED: Morphine 2 MG/ML SYRINGE SLOW IVP SCH (18:15)
[2019-12-04] MEDS: Morphine 2 MG/ML SYRINGE SLOW IVP SCH ×6 (00:10→20:58)
[2019-12-04] MEDS ORDERED: Lorazepam 2 MG/ML VIAL SLOW IVP PRN ×2 (14:54→17:27)
[2019-12-04] MEDS: Lorazepam 2 MG/ML VIAL SLOW IVP SCH (17:52)
[2019-12-05] MEDS: Lorazepam 2 MG/ML VIAL SLOW IVP SCH ×5 (00:12→23:18)
[2019-12-05] MEDS: Morphine 2 MG/ML SYRINGE SLOW IVP SCH ×6 (00:12→21:18)
[2019-12-06] MEDS: Morphine 2 MG/ML SYRINGE SLOW IVP SCH ×3 (01:16→07:44)
[2019-12-06] MEDS: Lorazepam 2 MG/ML VIAL SLOW IVP SCH (05:08)
[2019-12-06 08:10] VITALS: BP 128/77; TEMP 99.9
--- NOTE | 2019-12-07 10:32 | DIS ---
DATE OF ADMISSION: 11/29/2019 DATE OF DISCHARGE: 12/06/2019 DATE OF : 12/06/2019 at 0910 hours. CAUSE OF : Asystole secondary to tachyarrhythmia due to acute respiratory failure with hypoxia with found lung cancer metastatic to the brain causing anoxic brain injury. BRIEF SUMMARY OF HOSPITAL COURSE: The patient is an unfortunate 49-year-old white female, who was admitted to [facility] on 11/24/2019. The patient was found to have altered mental status. She has a history of lung cancer with brain metastases, chronic alcohol use and tobacco use. The patient was found to have a blood sugar of 18 and was given D10. The patient responded slightly, but prior to intubation, she was evaluated by Dr. Toussaint, Neurology and Dr. Najera due to seizures and was found to be in a nonoperable state. After discussion with the family, they decided to have terminal extubation and transferred to inpatient hospice for palliative care. During her hospital course for inpatient hospice, she was given routine morphine to help with agitation and terminal pain as well as Ativan for any terminal restlessness, was given scopolamine patch for any secretions and she had a good symptom control during her inpatient hospice stay. She was found by nursing staff on 12/06/2019 at 0910 hours in the morning to be unresponsive. No signs of breathing. No heart rate and no response to stimulation and was pronounced . Family was notified and body will be released to home per family wishes. Job ID: [id number]
--- NOTE | 2019-12-13 07:19 | PQF ---
SADIQ RIVERO KIA E MD [id number] CLINICAL DOCUMENTATION CLARIFICATION FORM: POST DISCHARGE Addendum to original discharge summary date: ____ Late entry note date: __ DATE: 12/13/2019 ATTN: Jael Garrison Please exercise your independent, professional judgment in responding to the clarification form. Clinical indicators are provided on the bottom of this form for your review Please check appropriate box(s): [ ] Encephalopathy: Etiology: [ ] Metabolic [ ] Toxic [ ] Hypoxic [ ] Unspecified [ x] Other (please specify) _due to metastatic lung cancer to brain [ ] Transient Alteration of Awareness [ ] Other diagnosis [ ] Unable to determine In addition, please specify: Present on Admission (POA): [ ] Yes [ ] No [ ] Unable to determine For continuity of documentation, please document condition throughout progress notes and discharge summary. Thank You. CLINICAL INDICATORS - SIGNS / SYMPTOMS / LABS Discharge summary 12/05 Found to have blood sugar of 18 and was given D10 Discharge summary 12/05 Given routine morhone to help with agitation Discharge summary 12/05 On 12/06/2019 found to be unresponsive Discharge summary 12/05 found to be in a nonoperable state RISK FACTORS Discharge summary 12/05 Acute Respiratory Failure Discharge summary 12/05 lung cancer with Brain mets Discharge summary 12/05 Anoxic brain injury Discharge summary 12/05 hx of alcohol use and tobacco use TREATMENTS: OCT 30 IVF NS 1L OCT 30 IV Morphine 2mg OCT 30 IV Ativan 1mg Discharge summary 12/05 Neurology Evaluation (This form is maintained as a part of the permanent medical record) 2014 [employer] All Rights Reserved [email or web address]
== END 2019-12-06 09:10 | disposition expired | DRG 951 ==
LOC: SJX 18:56 → SDC 18:56 → T4-B 18:58 → UNDOADMIN 19:19
PROVIDERS: ADMIT Family Medicine; ATTEND Family Medicine
DX: Z51.5 Encounter for palliative care (principal); J96.01 Acute respiratory failure with hypoxia; C34.90 Malignant neoplasm of unspecified part of unspecified bronchus or lung; C79.31 Secondary malignant neoplasm of brain; G93.1 Anoxic brain damage, not elsewhere classified; G93.49 Other encephalopathy; Z66 Do not resuscitate; Z87.891 Personal history of nicotine dependence; Z79.899 Other long term (current) drug therapy
CPT/HCPCS: J2060; J2270